=== PATIENT | male | born 1940 | race Caucasian/White ===

== ENCOUNTER → 2016-04-30 | Outpatient (CLI) | payer OTHER ==
[2016-04-30 17:44] LABS: ALT/SGPT 31 U/L (12-78); BLOOD UREA NITROGEN 18 mg/dl (7-18); BUN/CREATININE RATIO 13.8 (10-20); CARBON DIOXIDE 28 mmol/L (21-32); CHLORIDE 105 mmol/L (98-107); CHOLESTEROL 200 mg/dl (0-200); GLUCOSE 91 mg/dl (70-99); POTASSIUM 4.1 mmol/L (3.5-5.1); SODIUM 141 mmol/L (136-145)
[2016-04-30 17:45] LABS: BASO % 0.5 %; BASO ABS # 0.04 K/uL (0-0.2); COMPLETE YES; EOS % 1.7 %; HEMATOCRIT 43.7 % (42-52); IG% 0.1 %; LYMPH % 22.6 %; LYMPH ABS # 1.71 K/uL (1.2-3.4); MEAN CELL VOLUME 87.2 fL (80-100); MEAN CORPUSCULAR HEMOGLOBIN 29.9 pg (25-34); MEAN CORPUSCULAR HGB CONC 34.3 g/dl (32-36); MEAN PLATELET VOLUME 10.6 fL (7.4-10.4); MONO % 8.8 %; NEUT % 66.3 %; PLATELET COUNT 225 K/uL (130-400); RED BLOOD COUNT 5.01 M/uL (4.7-6.1); WHITE BLOOD COUNT 7.58 K/uL (4.8-10.8)
[2016-04-30 17:47] LABS: ALB/GLOB RATIO 1.1 (0.9-2); ALKALINE PHOSPHATASE 50 U/L (45-117); AST/SGOT 28 U/L (15-37); CHOLESTEROL/HDL RATIO 3.9; HDL CHOLESTEROL 51 mg/dl; LDL CHOLESTEROL CALCULATED 136 mg/dl; TRIGLYCERIDES 64 mg/dl (0-150); VERY LOW DENSITY LIPOPROT CALC 13 mg/dl
== END | disposition home or self-care (01) ==
LOC: C.LABPVFM 13:17
PROVIDERS: ATTEND Nurse Practitioner Family
DX: Z01.818 Encounter for other preprocedural examination (principal); Z01.810 Encounter for preprocedural cardiovascular examination; Z13.220 Encounter for screening for lipoid disorders; Z13.1 Encounter for screening for diabetes mellitus

== ENCOUNTER 2020-09-25 09:46 | Inpatient (IN) ==
[2020-09-25] MEDS ORDERED: SODIUM CHLORIDE 0.9% 500 ML IV SCH (10:15)
--- NOTE | 2020-09-25 10:17 | Emergency Department Note ---
Impression & Plan Weakness, TESSA (acute kidney injury), Acute UTI, Elevated troponin ED Provider Note NAME: CAROL DIAZ AGE: 80 SEX: M : 1940 ARRIVES VIA: Ambulance INFORMANT: [Patient][ems, ] ED PROVIDER(S): [Linus Clark MD] CHIEF COMPLAINT: Weakness HISTORY OF PRESENT ILLNESS: The patient is an 80-year-old male presents with increasing weakness that has developed over the last few weeks. As per his , he has worsened significantly in just the last 3 days. Today, he could not get out of bed without assistance. He seemed short of breath. The patient denies any fever. He has had some slight cough. He denies any abdominal pain or vomiting. No diarrhea or urinary complaints. He is vaccinated against COVID-19. The patient stopped his twice a day metoprolol on the sixth, 5 days ago because of some cyanosis in his hands. REVIEW OF SYSTEMS: See HPI for pertinent positives and negatives. A total of ten systems were reviewed and were otherwise negative. PMHx/PSHx: See Below SOCIAL HISTORY: See Below. PHYSICAL EXAM: GENERAL: Patient is in no acute distress. HEENT: No acute trauma, normocephalic atraumatic, mucous membranes moist, no n tomasz congestion, no scleral icterus. NECK: No stridor, no adenopathy, no meningismus, trachea is midline. LUNGS: Clear to auscultation bilaterally, no wheeze, no rhonchi, breath sounds equal. HEART: Tachycardic, regular rhythm, no murmurs. ABDOMEN: Soft, nontender, bowel sounds positive, no hernias, no peritonitis. EXTREMITIES: The patient's fingers are cool and somewhat cyanotic bilaterally. No pedal edema. No evidence for acute traumatic extremity injury. NEUROLOGIC: Oriented x 3, no acute motor or sensory deficits, no focal weakness. SKIN: No rash, no jaundice, no diaphoresis. DIFFERENTIAL DIAGNOSIS: Infection, dehydration, metabolic abnormality, hypo/hyperglycemia, dysrhythmia, COVID-19, electrolyte disturbance, anemia, hypoxia, cardiac sources, intracerebral event, toxicologic issues, stroke, TIA, as well as other pathologies. EMERGENCY DEPARTMENT COURSE/PROCEDURES: ECG: Indication was weakness. The ECG shows a normal sinus rhythm with a rate of 89. There are no PVCs, no ST elevation. There is some nonspecific ST change. QTC is 413. Compared to an ECG from 22 April 2020, the nonspecific ST change is worse, the rate has increased slightly. Continuous Cardiac Monitoring: An order was placed for continuous cardiac monitoring. The monitor shows a rate of 92 with normal sinus rhythm. MEDICAL DECISION MAKING: There is a mild leukocytosis, this would be consistent with infection. There is a mild anemia noted. There is a normal platelet count. Renal panel testing does show some dehydration with some acute kidney injury. Creatinine was 1.58. No liver enzyme elevation. The patient appeared to be in a euthyroid state. ECG shows a normal sinus rhythm, no acute ischemic change. Cardiac enzyme testing x1 does show a slight elevation. This elevation could be consistent with cardiac injury, mismatch or cardiac strain. Urinalysis is suggestive of infection with over 30 white blood cells. Covid testing returned negative. Chest film does not show pneumonia or CHF. On exam, the patient did not have any focal neurologic findings to suggest CVA. The patient received IV saline. He had received 1 L prior to arrival. He received 500 cc of saline during his ED stay. He was given IV cefepime as empiric antibiotic coverage. The patient presents with increasing weakness and fatigue. He appears to be dehydrated with some acute kidney injury. He has a UTI. There is a troponin elevation. Given his findings, I do think a hospital stay is warranted. I did speak with the patient and his about the results. I spoke with case management, the on-call hospitalist was consulted. Past Med/Surg History Medical History Aortic stenosis Resolved with TAVR. Aortic stenosis, severe BPH (benign prostatic hyperplasia) Cognitive decline Hypertension Obesity Osteoarthritis Surgical History History of cataract surgery Family History Father Myocardial infarction Cardiac disorder Brother Myocardial infarction Cardiac disorder Hypertension FHx: deafness or hearing loss Sister Hypertension Cardiac disorder Denies family history of Ovarian cancer Prostate cancer Breast cancer Bleeding disorder Colorectal cancer Social History Smoking Status: Never smoker Second Hand Exposure: No; Hx Alcohol Use: No Hx Substance Use: No Preferred Language: Welsh Communication Ability: Effective 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 Beliefs That Will Affect Care: None marital status: Current Living Situation: Spouse current occupational status: retired current occupation: Retired Feels Safe at Home: Yes caffeine: Yes Dental Care, Regularly: Yes Physical Activity Frequency: Does not Exercise Seatbelt Use: always Sunscreen Use: No Assistive Devices: Denture - Upper, Glasses and Hearing Aid - Bilateral Allergies Allergies Allergy/AdvReac Type Severity Reaction Status Date / Time metoprolol AdvReac Severe Fingers Unverified 09/25/20 11:05 turned Blue/ Poor Circulation Home Meds Home Medications Medication Instructions Recorded Confirmed cholecalciferol (vitamin D3) 50 50 mcg PO QAM #100 cap 09/28/18 09/25/20 mcg (2,000 unit) capsule carboxymethyl 0.5 %-glycerin 1 1 drp OPHTHALMIC (EYE) TID 04/01/20 09/25/20 %-polysorb 80 0.5 %-PF eye dropperette (Refresh Optive Evaristo-3 (PF)) lubricants topical gel 1 ea TOPICAL HS 04/01/20 09/25/20 aspirin 81 mg tablet,delayed 81 mg PO QAM 07/12/20 09/25/20 release atorvastatin 40 mg tablet (Lipitor) 40 mg PO HS 09/25/20 09/25/20 tamsulosin 0.4 mg capsule 0.4 mg PO HS 09/25/20 09/25/20 Previous Rx's Medication Instructions Recorded lisinopril 5 mg tablet 5 mg PO QAM #90 tab 09/19/20 Results & Data (ED) Vital Signs Vital Signs - 24 hr 09/25/20 10:02 09/25/20 10:44 09/25/20 11:30 Temperature 36.8 C Temperature Source Oral Pulse Rate 108 H 92 H Pulse Rate from SpO2 Sensor Respiratory Rate 18 23 Blood Pressure 126/79 123/87 Blood Pressure Mean 94 99 Pulse Oximetry 95 95 Oxygen Delivery Method Room Air Room Air Sepsis Recent Fever Within 48 Hours No Sepsis New/Unexplained Change in Mental Status N/A Sepsis Action Taken by Nursing No Action Required 09/25/20 12:01 09/25/20 12:31 Temperature Temperature Source Pulse Rate 93 H 108 H Pulse Rate from SpO2 Sensor 115 H Respiratory Rate 21 20 Blood Pressure 132/71 124/80 Blood Pressure Mean 91 94 Pulse Oximetry 59 L Oxygen Delivery Method Sepsis Recent Fever Within 48 Hours Sepsis New/Unexplained Change in Mental Status Sepsis Action Taken by Detention Medications Current Medication List: was personally reviewed by me Laboratory Data Attestation: I reviewed the patient's lab results. Result diagrams: 09/25/20 11:31 09/25/20 11:31 Lab Results 09/25/20 09/25/20 09/25/20 Range/Units 11:11 11:11 11:31 WBC 13.60 H (4.8-10.8) K/uL RBC 4.66 L (4.7-6.1) M/uL Hgb 13.7 L (14.0-18.0) g/dL Hct 40.4 L (42-52) % MCV 86.7 (80-100) fL MCH 29.4 (25-34) pg MCHC 33.9 (32-36) g/dL RDW Std Deviation 43.4 (36.4-46.3) fL RDW Coeff of Driss 13.9 (11.5-14.5) % Plt Count 259 (130-400) K/uL MPV 11.2 H (7.4-10.4) fL Immature Gran % (Auto) 0.3 % Neut % (Auto) 87.1 % Lymph % (Auto) 6.1 % [place] % (Auto) 6.3 % Eos % (Auto) 0.1 % Baso % (Auto) 0.1 % Neut # (Auto) 11.85 H (1.4-6.5) K/uL Lymph # (Auto) 0.83 L (1.2-3.4) K/uL [place] # (Auto) 0.85 H (0.11-0.59) K/uL Eos # (Auto) 0.02 (0-0.5) K/uL Baso # (Auto) 0.01 (0-0.2) K/uL Immature Gran # (Auto) 0.04 H (0.00-0.02) K/uL Sodium (136-145) mmol/L Potassium (3.5-5.1) mmol/L Chloride (98-107) mmol/L Carbon Dioxide (21-32) mmol/L Anion Gap (3-11) BUN (7-18) mg/dl Creatinine (0.6-1.4) mg/dl Est Cr Clr Drug Dosing ml/min Est GFR ( Amer) ml/min Est GFR (Non-Af Amer) ml/min BUN/Creatinine Ratio (10-20) Glucose (70-99) mg/dl Lactate (0.4-2.0) mmol/L Calcium (8.5-10.1) mg/dl Magnesium (1.8-2.4) mg/dl Total Bilirubin (0.2-1) mg/dl AST (15-37) U/L ALT (12-78) U/L Alkaline Phosphatase (45-117) U/L Troponin I (0-0.045) ng/ml Total Protein (6.4-8.2) gm/dl Albumin (3.4-5.0) gm/dl Globulin (2.5-4.0) gm/dl Albumin/Globulin Ratio (0.9-2) TSH (0.300-4.500) uIu/ml Urine Color Urine Appearance (Clear) Urine pH (4.5-7.5) Ur Specific [place] (1.000-1.030) Urine Protein (Negative) Urine Glucose (UA) (Negative) Urine Ketones (Negative) Urine Blood (Negative) Urine Nitrite (Negative) Urine Bilirubin (Negative) Urine Urobilinogen (Negative) Ur Leukocyte Esterase (Negative) Urine WBC (Auto) (0-5) /hpf Urine RBC (Auto) (0-4) /hpf U Hyaline Cast (Auto) (0-5) /lpf U Epithel Cells (Auto) (0-5) /lpf Urine Bacteria (Auto) (Negative) COVID-19 Eval Order Covid19 at [facility] SARS-CoV-2 (PCR) NEGATIVE (Negative) 09/25/20 09/25/20 09/25/20 Range/Units 11:31 11:52 12:38 WBC (4.8-10.8) K/uL RBC (4.7-6.1) M/uL Hgb (14.0-18.0) g/dL Hct (42-52) % MCV (80-100) fL MCH (25-34) pg MCHC (32-36) g/dL RDW Std Deviation (36.4-46.3) fL RDW Coeff of Driss (11.5-14.5) % Plt Count (130-400) K/uL MPV (7.4-10.4) fL Immature Gran % (Auto) % Neut % (Auto) % Lymph % (Auto) % [place] % (Auto) % Eos % (Auto) % Baso % (Auto) % Neut # (Auto) (1.4-6.5) K/uL Lymph # (Auto) (1.2-3.4) K/uL [place] # (Auto) (0.11-0.59) K/uL Eos # (Auto) (0-0.5) K/uL Baso # (Auto) (0-0.2) K/uL Immature Gran # (Auto) (0.00-0.02) K/uL Sodium 136 (136-145) mmol/L Potassium 3.9 (3.5-5.1) mmol/L Chloride 108 H (98-107) mmol/L Carbon Dioxide 25 (21-32) mmol/L Anion Gap 3.0 (3-11) BUN 62 H (7-18) mg/dl Creatinine 1.58 H (0.6-1.4) mg/dl Est Cr Clr Drug Dosing 36.7 ml/min Est GFR ( Amer) 46.5 ml/min Est GFR (Non-Af Amer) 40.1 ml/min BUN/Creatinine Ratio 39.3 H (10-20) Glucose 86 (70-99) mg/dl Lactate 1.4 (0.4-2.0) mmol/L Calcium 9.3 (8.5-10.1) mg/dl Magnesium 2.4 (1.8-2.4) mg/dl Total Bilirubin 1.1 H (0.2-1) mg/dl AST 27 (15-37) U/L ALT 38 (12-78) U/L Alkaline Phosphatase 65 (45-117) U/L Troponin I 0.075 H* (0-0.045) ng/ml Total Protein 6.7 (6.4-8.2) gm/dl Albumin 3.4 (3.4-5.0) gm/dl Globulin 3.3 (2.5-4.0) gm/dl Albumin/Globulin Ratio 1.0 (0.9-2) TSH 0.428 (0.300-4.500) uIu/ml Urine Color Yellow Urine Appearance Clear (Clear) Urine pH 5.5 (4.5-7.5) Ur Specific [place] 1.022 (1.000-1.030) Urine Protein Trace H (Negative) Urine Glucose (UA) Negative (Negative) Urine Ketones 2+ H (Negative) Urine Blood Negative (Negative) Urine Nitrite Negative (Negative) Urine Bilirubin Negative (Negative) Urine Urobilinogen Negative (Negative) Ur Leukocyte Esterase 2+ H (Negative) Urine WBC (Auto) >30 H (0-5) /hpf Urine RBC (Auto) 0-4 (0-4) /hpf U Hyaline Cast (Auto) 1-5 (0-5) /lpf U Epithel Cells (Auto) 20-30 H (0-5) /lpf Urine Bacteria (Auto) Negative (Negative) COVID-19 Eval Order SARS-CoV-2 (PCR) (Negative) Administered Medications Discontinued Medications Sodium Chloride (Nss) 500 mls @ 999 mls/hr IV .Q31M NIDA Stop: 09/25/20 10:45 Last Infusion: 09/25/20 12:34 Dose: 0 mls/hr Documented by: [id number] Admin: 09/25/20 11:38 Dose: 999 mls/hr Documented by: [id number] Cefepime HCl (Maxipime) 2,000 mg in 20 mls @ 5 mls/min IV NOW STA; Protocol Stop: 09/25/20 12:43 Last Admin: 09/25/20 13:46 Dose: 5 mls/min Documented by: [id number] Imaging Data Radiologist's Impression: Chest X-Ray 09/25/20 10:13 XR chest 1V portable HISTORY: 80 years-old Male weakness COMPARISON: 04/22/2020 TECHNIQUE: Portable AP view of the chest FINDINGS: Cardiomediastinal and hilar silhouettes are within normal limits. Aortic valvular endograft. No pneumothorax, pleural effusion, airspace consolidation or overt pulmonary edema. Degenerative changes of the shoulders and spine. No acute fracture. IMPRESSION: No acute process. ACT 112: Negative or not required by law. The above report was generated using voice recognition software. It may contain grammatical, syntax or spelling errors. Electronically signed by: Justo Armijo M.D. 09/25/2020 10:37 AM Discharge Plan Visit Data Chief Complaint: Illness Stated Complaint: WEAKNESS, SOB ED Provider: Linus Clark Discharge Problem: Weakness, TESSA (acute kidney injury), Acute UTI, Elevated troponin Patient Disposition: Admitted As Inpatient Condition: Fair Forms Stand Alone Forms: [facility] Prescriptions Prescriptions: No Action lisinopril 5 mg tablet 5 mg PO QAM Qty: 90 RF: 3 aspirin 81 mg tablet,delayed release (DR/EC) 81 mg PO QAM RF: 0 cholecalciferol (vitamin D3) 2,000 unit capsule 50 mcg PO QAM Qty: 100 RF: 0 lubricants [Lubri-Gel] Gel 1 ea TOPICAL HS RF: 0 Refresh Optive Evaristo-3 (PF) 0.5-1-0.5 % Dropperette 1 drp OPHTHALMIC (EYE) TID RF: 0 atorvastatin [Lipitor] 40 mg tablet 40 mg PO HS RF: 0 tamsulosin 0.4 mg capsule 0.4 mg PO HS RF: 0 Referrals Referrals: Marcie Wallace CRNP [Primary Care Provider] -
--- NOTE | 2020-09-25 10:38 | XRay Report ---
XR chest 1V portable HISTORY: 80 years-old Male weakness COMPARISON: 04/22/2020 TECHNIQUE: Portable AP view of the chest FINDINGS: Cardiomediastinal and hilar silhouettes are within normal limits. Aortic valvular endograft. No pneum othorax, pleural effusion, airspace consolidation or overt pulmonary edema. Degenerative changes of t he shoulders and spine. No acute fracture. IMPRESSION: No acute process. ACT 112: Negative or not required by law. The above report was generated using voice recognition software. It may contain grammatical, syntax o r spelling errors. Electronically signed by: Justo Armijo M.D. 09/25/2020 10:37 AM
[2020-09-25 11:45] LABS: Basophils # (auto) 0.01 K/uL (0-0.2); Basophils % (auto) 0.1 %; Eosinophils # (auto) 0.02 K/uL (0-0.5); Eosinophils % (auto) 0.1 %; Hematocrit (blood only) 40.4 % (42-52); Hemoglobin 13.7 g/dL (14.0-18.0); Immature Granulocytes # (auto) 0.04 K/uL (0.00-0.02); Immature Granulocytes % (auto) 0.3 %; Lymphocytes # (auto) 0.83 K/uL (1.2-3.4); Lymphocytes % (auto) 6.1 %; Mean Corpuscular Hemoglobin 29.4 pg (25-34); Mean Corpuscular Hgb Conc 33.9 g/dL (32-36); Mean Corpuscular Volume 86.7 fL (80-100); Mean Platelet Volume 11.2 fL (7.4-10.4); Monocytes # (auto) 0.85 K/uL (0.11-0.59); Monocytes % (auto) 6.3 %; Neutrophils # (auto) 11.85 K/uL (1.4-6.5); Neutrophils % (auto) 87.1 %; Platelet Count 259 K/uL (130-400); RDW Coefficient of Variation 13.9 % (11.5-14.5); RDW Standard Deviation 43.4 fL (36.4-46.3); Red Blood Count 4.66 M/uL (4.7-6.1)
[2020-09-25 12:03] LABS: Albumin Level 3.4 gm/dl (3.4-5.0); BUN Creatinine Ratio 39.3 (10-20); Calcium 9.3 mg/dl (8.5-10.1); Creatinine Clr Calc Pharmacy 36.7 ml/min; Est GFR (African American) 46.5 ml/min; Est GFR (Non-African American) 40.1 ml/min; Magnesium 2.4 mg/dl (1.8-2.4); Potassium 3.9 mmol/L (3.5-5.1)
[2020-09-25 12:18] LABS: Bilirubin,Total 1.1 mg/dl (0.2-1); Globulin 3.3 gm/dl (2.5-4.0); Thyroid Stimulating Hormone 0.428 uIu/ml (0.300-4.500); Total Protein 6.7 gm/dl (6.4-8.2); Troponin I 0.075 ng/ml (0-0.045)
[2020-09-25] MEDS ORDERED: CEFEPIME 2,000 MG/20 ML VIAL IV STA (12:40)
[2020-09-25 12:45] LABS: Appearance Urine Clear (Clear); Bacteria Urine Automated Negative (Negative); Bilirubin Urine Negative (Negative); Blood Urine Negative (Negative); Color Urine Yellow; Epithelial Cell Urine Auto 20-30 /lpf (0-5); Glucose Urine UA Negative (Negative); Ketones Urine 2+ (Negative); Leukocyte Esterase Urine 2+ (Negative); Nitrite Urine Negative (Negative); Protein Urine Trace (Negative); RBC Urine Automated 0-4 /hpf (0-4); Specific Gravity Urine 1.022 (1.000-1.030); Urobilinogen Urine Negative (Negative); WBC Urine Automated >30 /hpf (0-5); pH Urine 5.5 (4.5-7.5)
--- NOTE | 2020-09-25 14:06 | Electrocardiogram Report ---
Test Reason : Blood Pressure : / mmHG Vent. Rate : 089 BPM Atrial Rate : 089 BPM P-R Int : 140 ms QRS Dur : 086 ms QT Int : 340 ms P-R-T Axes : 081 046 053 degrees QTc Int : 413 ms Poor data quality, interpretation may be adversely affected Normal sinus rhythm Nonspecific T wave abnormality Abnormal ECG When compared with ECG of 22-APR-2020 08:40, Nonspecific T wave abnormality now evident in Anterior leads Confirmed by Prosper Downey ([id number]) on 09/25/2020 2:06:39 PM Referred By: Davis Chu Confirmed By:Eris Downey
--- NOTE | 2020-09-25 14:14 | History & Physical Report ---
Date of Service September 25, 2020 Assessment & Plan (1) Elevated troponin I level: Plan: Elevated troponin I level/abnormal EKG/hypertension/status post TAVR- The patient will be admitted to telemetry for serial cardiac enzymes, serial EKG's, cardiac rhythm monitoring and a 2-D echocardiogram with Dopplers. Troponin upon admission 0.075 Continue aspirin 81 mg daily, lisinopril 5 mg daily. Consult cardiology Dr. Downey Follow serial laboratories and EKGs (2) Abnormal EKG: Plan: See above (3) TESSA (acute kidney injury): Plan: Creatinine 1.58 upon admission, with baseline 1.09 Placed on NSS. Repeat laboratories in a.m. (4) Swallowing dysfunction: Plan: Swallowing dysfunction- Consult speech therapy His family reports that his oral intake has been significantly reduced, gradually worsening to the point that his oral intake is minimal for both liquids and solids (5) S/P TAVR (transcatheter aortic valve replacement): Plan: See above (6) Hypertension: Plan: See above (7) Cognitive decline: Plan: Cognitive decline likely contributing to generalized weakness- Patient should have PT OT assessment prior to discharge to assess whether he would need inpatient rehab upon discharge (8) Weakness: Plan: See above History of Present Illness Chief Complaint: The patient presents to the emergency department with decreased oral intake, and worsening generalized weakness to the point of not being able to get out of bed without assistance this morning. 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 He was brought into the emergency department with family noticed progressive symptoms as noted above. Patient reports he just has no appetite, and denies any abdominal discomfort, nausea or vomiting. Allergies Allergy/AdvReac Type Severity Reaction Status Date / Time metoprolol AdvReac Severe Fingers Unverified 09/25/20 11:05 turned Blue/ Poor Circulation Home Medications Medication Instructions Recorded Confirmed Type cholecalciferol (vitamin D3) 50 50 mcg PO QAM #100 cap 09/28/18 09/25/20 History mcg (2,000 unit) capsule carboxymethyl 0.5 %-glycerin 1 1 drp OPHTHALMIC (EYE) TID 04/01/20 09/25/20 History %-polysorb 80 0.5 %-PF eye dropperette (Refresh Optive Evaristo-3 (PF)) lubricants topical gel 1 ea TOPICAL HS 04/01/20 09/25/20 History aspirin 81 mg tablet,delayed 81 mg PO QAM 07/12/20 09/25/20 History release lisinopril 5 mg tablet 5 mg PO QAM #90 tab 09/19/20 09/25/20 Rx atorvastatin 40 mg tablet (Lipitor) 40 mg PO HS 09/25/20 09/25/20 History tamsulosin 0.4 mg capsule 0.4 mg PO HS 09/25/20 09/25/20 History Past Med/Surg History Medical History Aortic stenosis Resolved with TAVR. Aortic stenosis, severe BPH (benign prostatic hyperplasia) Cognitive decline Hypertension Obesity Osteoarthritis Surgical History History of cataract surgery Family History Father Myocardial infarction Cardiac disorder Brother Myocardial infarction Cardiac disorder Hypertension FHx: deafness or hearing loss Sister Hypertension Cardiac disorder Denies family history of Ovarian cancer Prostate cancer Breast cancer Bleeding disorder Colorectal cancer Social History Smoking Status: Never smoker Second Hand Exposure: No; Hx Alcohol Use: No Hx Substance Use: No Preferred Language: Spanish Communication Ability: Effective Spin Instructor Required: No Beliefs That Will Affect Care: None marital status: Current Living Situation: Spouse current occupational status: retired current occupation: Retired Feels Safe at Home: Yes caffeine: Yes Dental Care, Regularly: Yes Physical Activity Frequency: Does not Exercise Seatbelt Use: always Sunscreen Use: No Assistive Devices: Denture - Upper, Glasses and Hearing Aid - Bilateral Review of Systems Review of Systems: The patient denies chest pain, palpitations, shortness of breath, dyspnea on exertion, cough, lower extremity swelling, sore throat, fevers, chills, sweats, nausea, vomiting, diarrhea , constipation, abdominal pain, pelvic pain, blood in urine or stool, dysuria, urinary frequency or urgency, lightheadedness, dizziness, headache, loss of consciousness, rash, abnormal bruising or bleeding, focal weakness, numbness or tingling in arms or legs, generalized arthralgias or myalgias, back or neck pain, or night sweats. The review of systems is otherwise negative other than for that already noted above, and at least 10 systems have been reviewed. Physical Exam Physical Exam: The patient is awake, alert and oriented 3, well developed and well nourished, normocephalic and atraumatic, lying in bed and in no acute distress. HEENT--PERRL, EOMI, mucous membranes and oropharynx dry. Neck--supple. No JVD. No bruits. Thyroid normal, trachea midline, no adenopathy. Heart--normal S1 and S2. No murmurs, rubs or gallops. Lungs--clear bilaterally, no respiratory distress, no accessory muscle use. Abdomen--normal bowel sounds and soft. Nontender. Nondistended, no hernias or masses, no organomegaly. Extremities--no cyanosis or clubbing. No edema. Dermatologic--skin is mildly dry Neurologic--cranial nerves II through XII grossly intact. Rheumatologic--normal range of motion. Psychiatric--normal affect. Results & Data Results & Data ([facility]) Vital Signs (Past 12 Hours) Vital Signs Temp Pulse Resp BP Pulse Ox 09/25/20 12:31 108 H 20 124/80 09/25/20 12:01 93 H 21 132/71 59 L 09/25/20 11:30 92 H 23 123/87 09/25/20 10:44 95 09/25/20 10:02 98.2 F 108 H 18 126/79 95 Laboratory Results Laboratory Results WBC 13.60 K/uL (4.8-10.8) H 09/25/20 11:31 RBC 4.66 M/uL (4.7-6.1) L 09/25/20 11:31 Hgb 13.7 g/dL (14.0-18.0) L 09/25/20 11:31 Hct 40.4 % (42-52) L 09/25/20 11:31 MCV 86.7 fL (80-100) 09/25/20 11:31 MCH 29.4 pg (25-34) 09/25/20 11:31 MCHC 33.9 g/dL (32-36) 09/25/20 11:31 RDW Std Deviation 43.4 fL (36.4-46.3) 09/25/20 11:31 RDW Coeff of Driss 13.9 % (11.5-14.5) 09/25/20 11:31 Plt Count 259 K/uL (130-400) 09/25/20 11:31 MPV 11.2 fL (7.4-10.4) H 09/25/20 11:31 Immature Gran % (Auto) 0.3 % 09/25/20 11:31 Neut % (Auto) 87.1 % 09/25/20 11:31 Lymph % (Auto) 6.1 % 09/25/20 11:31 [place] % (Auto) 6.3 % 09/25/20 11:31 Eos % (Auto) 0.1 % 09/25/20 11:31 Baso % (Auto) 0.1 % 09/25/20 11:31 Neut # (Auto) 11.85 K/uL (1.4-6.5) H 09/25/20 11:31 Lymph # (Auto) 0.83 K/uL (1.2-3.4) L 09/25/20 11:31 [place] # (Auto) 0.85 K/uL (0.11-0.59) H 09/25/20 11:31 Eos # (Auto) 0.02 K/uL (0-0.5) 09/25/20 11:31 Baso # (Auto) 0.01 K/uL (0-0.2) 09/25/20 11:31 Immature Gran # (Auto) 0.04 K/uL (0.00-0.02) H 09/25/20 11:31 Sodium 136 mmol/L (136-145) 09/25/20 11:31 Potassium 3.9 mmol/L (3.5-5.1) 09/25/20 11:31 Chloride 108 mmol/L (98-107) H 09/25/20 11:31 Carbon Dioxide 25 mmol/L (21-32) 09/25/20 11:31 Anion Gap 3.0 (3-11) 09/25/20 11:31 BUN 62 mg/dl (7-18) H 09/25/20 11:31 Creatinine 1.58 mg/dl (0.6-1.4) H 09/25/20 11:31 Est Cr Clr Drug Dosing 36.7 ml/min 09/25/20 11:31 Est GFR ( Amer) 46.5 ml/min 09/25/20 11:31 Est GFR (Non-Af Amer) 40.1 ml/min 09/25/20 11:31 BUN/Creatinine Ratio 39.3 (10-20) H 09/25/20 11:31 Glucose 86 mg/dl (70-99) 09/25/20 11:31 Lactate 1.4 mmol/L (0.4-2.0) 09/25/20 11:52 Calcium 9.3 mg/dl (8.5-10.1) 09/25/20 11:31 Magnesium 2.4 mg/dl (1.8-2.4) 09/25/20 11:31 Total Bilirubin 1.1 mg/dl (0.2-1) H 09/25/20 11:31 AST 27 U/L (15-37) 09/25/20 11:31 ALT 38 U/L (12-78) 09/25/20 11:31 Alkaline Phosphatase 65 U/L (45-117) 09/25/20 11:31 Troponin I 0.075 ng/ml (0-0.045) H* 09/25/20 11:31 Total Protein 6.7 gm/dl (6.4-8.2) 09/25/20 11:31 Albumin 3.4 gm/dl (3.4-5.0) 09/25/20 11:31 Globulin 3.3 gm/dl (2.5-4.0) 09/25/20 11:31 Albumin/Globulin Ratio 1.0 (0.9-2) 09/25/20 11:31 TSH 0.428 uIu/ml (0.300-4.500) 09/25/20 11:31 Urine Color Yellow 09/25/20 12:38 Urine Appearance Clear (Clear) 09/25/20 12:38 Urine pH 5.5 (4.5-7.5) 09/25/20 12:38 Ur Specific [place] 1.022 (1.000-1.030) 09/25/20 12:38 Urine Protein Trace (Negative) H 09/25/20 12:38 Urine Glucose (UA) Negative (Negative) 09/25/20 12:38 Urine Ketones 2+ (Negative) H 09/25/20 12:38 Urine Blood Negative (Negative) 09/25/20 12:38 Urine Nitrite Negative (Negative) 09/25/20 12:38 Urine Bilirubin Negative (Negative) 09/25/20 12:38 Urine Urobilinogen Negative (Negative) 09/25/20 12:38 Ur Leukocyte Esterase 2+ (Negative) H 09/25/20 12:38 Urine WBC (Auto) >30 /hpf (0-5) H 09/25/20 12:38 Urine RBC (Auto) 0-4 /hpf (0-4) 09/25/20 12:38 U Hyaline Cast (Auto) 1-5 /lpf (0-5) 09/25/20 12:38 U Epithel Cells (Auto) 20-30 /lpf (0-5) H 09/25/20 12:38 Urine Bacteria (Auto) Negative (Negative) 09/25/20 12:38 COVID-19 Eval Order Covid19 at [facility] 09/25/20 11:11 SARS-CoV-2 (PCR) NEGATIVE (Negative) 09/25/20 11:11 Impressions Chest X-Ray 09/25/20 10:13 XR chest 1V portable HISTORY: 80 years-old Male weakness COMPARISON: 04/22/2020 TECHNIQUE: Portable AP view of the chest FINDINGS: Cardiomediastinal and hilar silhouettes are within normal limits. Aortic valvular endograft. No pneumothorax, pleural effusion, airspace consolidation or overt pulmonary edema. Degenerative changes of the shoulders and spine. No acute fracture. IMPRESSION: No acute process. ACT 112: Negative or not required by law. The above report was generated using voice recognition software. It may contain grammatical, syntax or spelling errors. Electronically signed by: Justo Armijo M.D. 09/25/2020 10:37 AM ECG Additional Comments: [facility], [place] Electrocardiogram ReportSigned Patient: CAROL DIAZ CAdmit Date: 09/25/20MR#: [id number] Phy: Acct ID: [id number] Phy: Marcie Wallace, CRNPBirth Date: 1940Fam Phy:Age: 80Location: EDSex: MRoom/Bed: cc: ~ DICTATED BY: Prosper Downey MD Test Reason : Blood Pressure : / mmHG Vent. Rate : 089 BPM Atrial Rate : 089 BPM P-R Int : 140 ms QRS Dur : 086 ms QT Int : 340 ms P-R-T Axes : 081 046 053 degrees QTc Int : 413 ms Poor data quality, interpretation may be adversely affected Normal sinus rhythm Nonspecific T wave abnormality Abnormal ECG When compared with ECG of 22-APR-2020 08:40, Nonspecific T wave abnormality now evident in Anterior leads Confirmed by Prosper Downey ([id number]) on 09/25/2020 2:06:39 PM Referred By: Davis Chu Confirmed By:Eris Downey Signed By:09/25/20 1406 Dictated: 09/25/20 1117 Transcribed: Mosaic Layer: The status of this report is Signed.Draft = Not yet reviewed or approved by Medical Physician.Signed = Reviewed and approved by Medical Physician. Code Status & VTE Plan Code Status Full code VTE Prophylaxis Plan VTE Prophylaxis will be ordered: Yes PG Care Time/CCT Total # of Minutes Spent Total Time Spent with Patient: Total time spent is greater than 50% in coordination of care (as documented) at patient's floor/unit and/or counseling patient: Coding Level of Care Code 75920 Initial Inpt Care Lvl 3 Diagnoses Elevated troponin I level R77.8 Abnormal EKG R94.31 TESSA (acute kidney injury) N17.9 Swallowing dysfunction R13.10 S/P TAVR (transcatheter aortic valve replacement) Z95.2 Hypertension I10 Cognitive decline R41.89 Weakness R53.1
[2020-09-25] MEDS ORDERED: NITROGLYCERIN SL 0.4 MG/TAB TAB SL PRN (16:31)
[2020-09-25] MEDS ORDERED: ONDANSETRON INJ 2 MG/ML 2 ML VIAL IV PRN (16:31)
[2020-09-25] MEDS ORDERED: ACETAMINOPHEN 325 MG TAB PO PRN (16:31)
[2020-09-25] MEDS: SODIUM CHLORIDE 0.9% 1000ML 1,000 ML IV SCH (17:43)
--- NOTE | 2020-09-25 17:59 | XCELERA ---
[id number]
[2020-09-25] MEDS ORDERED: [UNRECOGNIZED DRUG - SUPPLY] TOP SCH (21:00)
[2020-09-25] MEDS: ARTIFICIAL TEARS OP SCH (21:35)
[2020-09-25] MEDS: HEPARIN SOD 5,000 UNIT/0.5 ML VIAL SQ SCH (21:36)
[2020-09-26] MEDS: SODIUM CHLORIDE 0.9% 1000ML 1,000 ML IV SCH (05:10)
[2020-09-26 05:35] LABS: Basophils # (auto) 0.02 K/uL (0-0.2); Basophils % (auto) 0.1 %; Eosinophils # (auto) 0.05 K/uL (0-0.5); Eosinophils % (auto) 0.4 %; Hematocrit (blood only) 40.5 % (42-52); Hemoglobin 13.3 g/dL (14.0-18.0); Immature Granulocytes # (auto) 0.03 K/uL (0.00-0.02); Immature Granulocytes % (auto) 0.2 %; Lymphocytes # (auto) 1.32 K/uL (1.2-3.4); Lymphocytes % (auto) 9.6 %; Mean Corpuscular Hemoglobin 29.1 pg (25-34); Mean Corpuscular Hgb Conc 32.8 g/dL (32-36); Mean Corpuscular Volume 88.6 fL (80-100); Mean Platelet Volume 10.9 fL (7.4-10.4); Monocytes # (auto) 0.98 K/uL (0.11-0.59); Monocytes % (auto) 7.1 %; Neutrophils # (auto) 11.38 K/uL (1.4-6.5); Neutrophils % (auto) 82.6 %; Platelet Count 216 K/uL (130-400); RDW Standard Deviation 45.5 fL (36.4-46.3); Red Blood Count 4.57 M/uL (4.7-6.1); White Blood Count 13.78 K/uL (4.8-10.8)
[2020-09-26 06:01] LABS: Albumin Level 3.1 gm/dl (3.4-5.0); BUN Creatinine Ratio 41.5 (10-20); Calcium 8.7 mg/dl (8.5-10.1); Creatinine Clr Calc Pharmacy 42.6 ml/min; Est GFR (African American) 61.8 ml/min; Est GFR (Non-African American) 53.3 ml/min; Magnesium 2.2 mg/dl (1.8-2.4)
[2020-09-26 06:03] LABS: Total Protein 6.1 gm/dl (6.4-8.2)
[2020-09-26] MEDS: HEPARIN SOD 5,000 UNIT/0.5 ML VIAL SQ SCH ×2 (07:56→20:31)
[2020-09-26] MEDS: ARTIFICIAL TEARS OP SCH ×3 (07:56→20:32)
[2020-09-26] MEDS ORDERED: MULTI-VITAMIN INFUSION 10 ML, THIAMINE HCL 100 MG, FOLIC ACID 1 MG in SODIUM CHLORIDE 0... IV ONE (13:00)
--- NOTE | 2020-09-26 13:00 | Hospitalist Progress Note ---
Date of Service September 26, 2020 Assessment & Plan (1) Dysphagia: Plan: x 2 months. Started in the days following his hospitalization for TAVR at [facility] in June. Perioperative stroke? However, no old stroke seen on MRI brain today that was obtained that would account for swallowing dysfunction (old R cerebellar lacune only). Obstruction from esophageal mass or stricture or other? Laryngeal tumor/obstruction? Substernal goiter? Other? Appreciate speech therapy consult. NPO. Speech concerned he would not even be able to safely do a video swallow. Will consult GI for consideration of upper endoscopy. Consider CT soft tissues neck if EGD, if done, is negative. Consider ENT eval. Keep NPO because of failed swallow eval. (2) Severe protein-calorie malnutrition: Plan: Severe weight loss (14kg) since his TAVR. 2nd #1. Needs w/u for #1 first. Add dextrose to IV fluids. Give banana bag x 1. Then give supplemental thiamine/folate. (3) Leukocytosis: Plan: etiology? crp scantly elevated. procal negative. no infectious symptoms. COVID negative. cxr without pneumonia. urine cx and blood cx's thus far negative. reactive ?? repeat cbc am. (4) Elevated troponin I level: Plan: Myocardial demand ischemia in setting of dehydration, TESSA, etc. No true ACS. pre-op heart cath prior to TAVR showed nonobstructive CAD only (40% LAD lesion only, other epicardial vessels largely wnl). (5) TESSA (acute kidney injury): Plan: 2nd volume depletion due to inability to take proper nutrition & hydration. Peak Cr 1.5. Now 1.2. Continue IVF. Repeat bmp am. Hold [place]. (6) S/P TAVR (transcatheter aortic valve replacement): Plan: June 2020 at [facility]. (7) Hypertension: Plan: While NPO simply follow BPs. Most thus far are normal - likely due to severe weight loss since June. Follow off of his [place]. (8) Elevated cholesterol: Plan: Hold statin. (9) BPH (benign prostatic hyperplasia): Plan: Hold flomax. (10) Old lacunar stroke without late effect: Plan: on MRI brain today - old, small, right-sided cerebellar lacunar stroke. age-indeterminate but not related to presenting issues. when allowed to take PO should resume asa with statin. (11) Elevated AST (SGOT): Plan: cause? trend. was normal at admission, now scantly elevated. Plan: lengthy discussion held with pt's by phone this evening. discussed speech therapy consult and failed bedside swallow. discussed MRI brain results. discussed getting GI consultation. questions answered. Admission and Anticipated Discharge Date Admission Date: September 25, 2020 Subjective patient states that up until his TAVR procedure he was having normal swallow function. first he told me the dysphagia was 2 weeks in length, but then changed the story and said it was from the time of his TAVR. records reviewed from Dr Chu's last office visit. apparently perioperatively around the TAVR at [facility] he had a neuro event leading to stroke work up including CTA head/neck, etc. work-up was negative. patient states that when he was released he and his stopped at [place] on the way home to [facility]. he said "that was the last time I was able to swallow". he describes a sensation of "the food just getting stuck" -- and he points to this throat area. I commented during the visit that his voice sounded hoarse to me and he couldn't say either way if he indeed had hoarseness. reports significant weight loss since his TAVR. records substantiate this - has lost 14 kg since late June. bedside swallow eval performed by speech this am - patient has severe dysphagia; he can masticate but the swallow mechanism cannot be initiated; nothing actually exits the mouth into the throat. patient reports dysphagia for solids and liquids but can tolerate tiny amounts of latter. Review of Systems Review of Systems: gen - severe weight loss, fatigue CV - no chest pain pulm - no dyspnea ENMT - dry mouth GI - no vomiting, no nausea, no abd pain neuro - no motor weakness of arms/legs; no aphasia or dysarthria Physical Exam Physical Exam: gen: patient was being helped from the commode to the chair - weak, unsteady gait eyes: PERRL mouth: MMM, no throat lesions neck: no masses, no lymphadenopathy; no large goiter heart: RRR, s1 s2, no murmur lungs: CTA b/l abd: soft, NT, ND, BS+, no HSM ext: no edema, pulses 2+ b/l neuro: strength 5/5 x 4 exts; speech is clear/fluent but hoarse; no facial droop Results & Data Results & Data ([facility]) Vital Signs (Past 12 Hours) Vital Signs Temp Pulse Pulse Resp BP BP Pulse Ox 09/26/20 11:48 88 09/26/20 11:10 36.5 C 97 H 18 109/65 96 09/26/20 07:38 36.5 C 104 H 22 118/81 99 09/26/20 06:57 36.5 C 09/26/20 06:23 97 H 23 114/76 98 09/26/20 05:23 102 H 19 112/78 98 09/26/20 04:23 101 H 20 97/68 L 99 09/26/20 03:23 102 H 16 126/67 97 09/26/20 02:23 85 103/60 98 09/26/20 01:23 106 H 126/72 99 Laboratory Results Laboratory Results - last 24 hr 09/26/20 09/26/20 09/26/20 04:48 10:09 10:09 WBC RBC Hgb Hct MCV MCH MCHC RDW Std Deviation RDW Coeff of Driss Plt Count MPV Immature Gran % (Auto) Neut % (Auto) Lymph % (Auto) [place] % (Auto) Eos % (Auto) Baso % (Auto) Neut # (Auto) Lymph # (Auto) [place] # (Auto) Eos # (Auto) Baso # (Auto) Immature Gran # (Auto) Sodium 142 Potassium 4.0 Chloride 111 H Carbon Dioxide 25 Anion Gap 6.0 BUN 52 H Creatinine 1.25 D Est Cr Clr Drug Dosing 42.6 Est GFR ( Amer) 61.8 Est GFR (Non-Af Amer) 53.3 BUN/Creatinine Ratio 41.5 H Glucose 74 Calcium 8.7 Magnesium 2.2 Total Bilirubin 1.0 AST 42 H ALT 40 Alkaline Phosphatase 59 C-Reactive Protein 0.69 H Total Protein 6.1 L Albumin 3.1 L Globulin 3.0 Albumin/Globulin Ratio 1.0 Procalcitonin < 0.05 09/27/20 09/27/20 04:58 04:58 WBC 10.47 RBC 4.55 L Hgb 13.4 L Hct 40.3 L MCV 88.6 MCH 29.5 MCHC 33.3 RDW Std Deviation 45.7 RDW Coeff of Driss 14.0 Plt Count 201 MPV 10.5 H Immature Gran % (Auto) 0.2 Neut % (Auto) 80.5 Lymph % (Auto) 11.5 [place] % (Auto) 7.0 Eos % (Auto) 0.6 Baso % (Auto) 0.2 Neut # (Auto) 8.44 H Lymph # (Auto) 1.20 [place] # (Auto) 0.73 H Eos # (Auto) 0.06 Baso # (Auto) 0.02 Immature Gran # (Auto) 0.02 Sodium 144 Potassium 3.6 Chloride 115 H Carbon Dioxide 22 Anion Gap 7.0 BUN 36 H Creatinine 0.84 D Est Cr Clr Drug Dosing 63.4 Est GFR ( Amer) 94.5 Est GFR (Non-Af Amer) 81.5 BUN/Creatinine Ratio 42.7 H Glucose 77 Calcium 8.9 Magnesium Total Bilirubin AST 44 H ALT Alkaline Phosphatase C-Reactive Protein Total Protein Albumin Globulin Albumin/Globulin Ratio Procalcitonin Diagnostic Findings Brain MRI 09/26/20 12:59 MR brain wo con HISTORY: 80 years-old Male dysphagia x 2 months; eval for old/new stroke subacute stroke like symptoms COMPARISON: None TECHNIQUE: Multiplanar multisequence MRI of the brain was obtained without the use of IV contrast FINDINGS: Armament Aircraft Mechanic localizer images demonstrate no gross extracranial abnormality. There is no restricted diffusion to suggest acute or subacute infarct. 8 mm chronic lacunar infarct of the posterior aspect of the mid right cerebellar hemisphere. Age-related involutional changes. Minimal patchy T2/FLAIR hyperintensities the white matter are nonspecific however suggest chronic microvascular ischemic disease and are less than expected in a patient of this age group. No acute intracranial hemorrhage, midline shift, abnormal extra axial collection, hydrocephalus or intracranial mass. Cerebral venous sinuses are patent. The distal left vertebral artery is not visualized and may be hypoplastic. Mastoid air cells and paranasal sinuses are generally clear. Prior bilateral lens repair. The skull and soft tissues are within normal limits. IMPRESSION: No acute intracranial abnormality. No acute or subacute infarct. ACT 112: Negative or not required by law. The above report was generated using voice recognition software. It may contain grammatical, syntax or spelling errors. Electronically signed by: Justo Armijo M.D. 09/26/2020 6:57 PM PG Care Time/CCT Total # of Minutes Spent Total Time Spent with Patient: Total time spent is greater than 50% in coordination of care (as documented) at patient's floor/unit and/or counseling patient: Coding Level of Care Code 05062 Subseq Hosp Care Lvl 3 Diagnoses Dysphagia R13.10 Severe protein-calorie malnutrition E43 Leukocytosis D72.829 Elevated troponin I level R77.8 TESSA (acute kidney injury) N17.9 S/P TAVR (transcatheter aortic valve replacement) Z95.2 Hypertension I10 Elevated cholesterol E78.00 BPH (benign prostatic hyperplasia) N40.0 Old 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
--- NOTE | 2020-09-26 13:23 | Electrocardiogram Report ---
Test Reason : Blood Pressure : / mmHG Vent. Rate : 096 BPM Atrial Rate : 096 BPM P-R Int : 136 ms QRS Dur : 088 ms QT Int : 352 ms P-R-T Axes : -21 044 -11 degrees QTc Int : 444 ms Poor data quality, interpretation may be adversely affected Normal sinus rhythm Nonspecific T wave abnormality Abnormal ECG When compared with ECG of 25-SEP-2020 11:17, Non-specific change in ST segment in Inferior leads Nonspecific T wave abnormality now evident in Inferior leads Confirmed by Prosper Downey ([id number]) on 09/26/2020 1:23:10 PM Referred By: Davis Chu Confirmed By:Eris Downey
--- NOTE | 2020-09-26 18:59 | Magnetic Resonance Report ---
MR brain wo con HISTORY: 80 years-old Male dysphagia x 2 months; eval for old/new stroke subacute stroke like sympto ms COMPARISON: None TECHNIQUE: Multiplanar multisequence MRI of the brain was obtained without the use of IV contrast FINDINGS: Corporate Staff Accountant localizer images demonstrate no gross extracranial abnormality. There is no restricted diffusio n to suggest acute or subacute infarct. 8 mm chronic lacunar infarct of the posterior aspect of the m id right cerebellar hemisphere. Age-related involutional changes. Minimal patchy T2/FLAIR hyperintens ities the white matter are nonspecific however suggest chronic microvascular ischemic disease and are less than expected in a patient of this age group. No acute intracranial hemorrhage, midline shift, abnormal extra axial collection, hydrocephalus or intracranial mass. Cerebral venous sinuses are patent. The distal left vertebral artery is not visualized and may be hyp oplastic. Mastoid air cells and paranasal sinuses are generally clear. Prior bilateral lens repair. T he skull and soft tissues are within normal limits. IMPRESSION: No acute intracranial abnormality. No acute or subacute infarct. ACT 112: Negative or not required by law. The above report was generated using voice recognition software. It may contain grammatical, syntax o r spelling errors. Electronically signed by: Justo Armijo M.D. 09/26/2020 6:57 PM
[2020-09-27 05:25] LABS: Basophils # (auto) 0.02 K/uL (0-0.2); Basophils % (auto) 0.2 %; Eosinophils # (auto) 0.06 K/uL (0-0.5); Eosinophils % (auto) 0.6 %; Hematocrit (blood only) 40.3 % (42-52); Hemoglobin 13.4 g/dL (14.0-18.0); Immature Granulocytes # (auto) 0.02 K/uL (0.00-0.02); Immature Granulocytes % (auto) 0.2 %; Lymphocytes % (auto) 11.5 %; Mean Corpuscular Hemoglobin 29.5 pg (25-34); Mean Corpuscular Hgb Conc 33.3 g/dL (32-36); Mean Corpuscular Volume 88.6 fL (80-100); Mean Platelet Volume 10.5 fL (7.4-10.4); Monocytes # (auto) 0.73 K/uL (0.11-0.59); Neutrophils # (auto) 8.44 K/uL (1.4-6.5); Neutrophils % (auto) 80.5 %; Platelet Count 201 K/uL (130-400); RDW Standard Deviation 45.7 fL (36.4-46.3); Red Blood Count 4.55 M/uL (4.7-6.1); White Blood Count 10.47 K/uL (4.8-10.8)
[2020-09-27 05:43] LABS: BUN Creatinine Ratio 42.7 (10-20); Calcium 8.9 mg/dl (8.5-10.1); Creatinine Clr Calc Pharmacy 63.4 ml/min; Est GFR (African American) 94.5 ml/min; Est GFR (Non-African American) 81.5 ml/min; Potassium 3.6 mmol/L (3.5-5.1)
[2020-09-27] MEDS: D5W AND 1/2NSS + 20MEQ KCL 20 MEQ/1,000 ML BAG IV SCH ×2 (06:20→21:19)
[2020-09-27] MEDS ORDERED: SODIUM CHLORIDE 0.9% 1000ML 250 ML IV ONE (07:37)
[2020-09-27] MEDS: HEPARIN SOD 5,000 UNIT/0.5 ML VIAL SQ SCH ×2 (09:14→20:14)
[2020-09-27] MEDS: THIAMINE HCL 100 MG in SYRINGE 9 ML IV SCH (09:15)
[2020-09-27] MEDS: ARTIFICIAL TEARS OP SCH ×3 (09:15→20:14)
[2020-09-27] MEDS: FOLIC ACID 1 MG in SYRINGE 9.8 ML IV SCH (09:15)
--- NOTE | 2020-09-27 10:27 | Gastrointestinal Consultation ---
Date of Consultation September 27, 2020 Assessment & Plan (1) Dysphagia: -Keep NPO for possible EGD today if deemed acceptable risk per anesthesia. -Can trial Protonix 40 mg BID. -Further recommendations pending results of testing. Supervising Physician Co-Signing Physician Notes Agree with MADI Nelson as above Abd: Soft, NT, ND, +BS Continue supportive care and current medications Recommend EGD for Dysphagia now History of Present Illness Reason for Consultation: Dysphagia Attending Physician: Oz White MD History of Present Illness Patient is an 80 yo male with a PMH of TAVR in June 2020, malnutrition, HTN, HLD, & osteoarthritis who presented to the hospital with progressive symptoms of decreased oral intake and weight loss. Patient reports dysphagia to solids & liquids that has been ongoing since his TAVR in June. He denies heartburn & reflux. He denies melena, nausea, vomiting, abdominal pain. He denies family history of GI malignancy. He offers no further GI complaints at present. Reportedly he had an MRI and CT that suggested an old infarct of the brain, but no acute stroke noted. He denies pertinent family history of GI malignancy. Per documentation, it was felt that a video swallow was not able to be successfully undertaken. Patient denies he has ever had an EGD or colonoscopy. Of note, patient has an elevated troponin. He apparently underwent cardiac catheterization prior to his TAVR in June 2020. Allergies Allergy/AdvReac Type Severity Reaction Status Date / Time metoprolol AdvReac Severe Fingers Unverified 09/25/20 11:05 turned Blue/ Poor Circulation Home Medications Medication Instructions Recorded Confirmed Type cholecalciferol (vitamin D3) 50 50 mcg PO QAM #100 cap 09/28/18 09/25/20 History mcg (2,000 unit) capsule carboxymethyl 0.5 %-glycerin 1 1 drp OPHTHALMIC (EYE) TID 04/01/20 09/25/20 History %-polysorb 80 0.5 %-PF eye dropperette (Refresh Optive Evaristo-3 (PF)) lubricants topical gel 1 ea TOPICAL HS 04/01/20 09/25/20 History aspirin 81 mg tablet,delayed 81 mg PO QAM 07/12/20 09/25/20 History release lisinopril 5 mg tablet 5 mg PO QAM #90 tab 09/19/20 09/25/20 Rx atorvastatin 40 mg tablet (Lipitor) 40 mg PO HS 09/25/20 09/25/20 History tamsulosin 0.4 mg capsule 0.4 mg PO HS 09/25/20 09/25/20 History Patient History Medical History Aortic stenosis Resolved with TAVR. Aortic stenosis, severe BPH (benign prostatic hyperplasia) Cognitive decline Hypertension Obesity Osteoarthritis Surgical History History of cataract surgery R/L > subsequent laser surgery on eyes Family History Father Myocardial infarction Cardiac disorder Brother Myocardial infarction Cardiac disorder Hypertension FHx: deafness or hearing loss Sister Hypertension Cardiac disorder Denies family history of Ovarian cancer Prostate cancer Breast cancer Bleeding disorder Colorectal cancer Social History Smoking Status: Never smoker Second Hand Exposure: No; Hx Alcohol Use: No Hx Substance Use: No Preferred Language: Bulgarian Communication Ability: Effective Fish Seiner Required: No Beliefs That Will Affect Care: None marital status: Current Living Situation: Spouse current occupational status: retired current occupation: Retired Feels Safe at Home: Yes caffeine: Yes Dental Care, Regularly: Yes Physical Activity Frequency: Does not Exercise Seatbelt Use: always Sunscreen Use: No Assistive Devices: Hearing Aid - Bilateral Review of Systems Constitutional: no fever and no chills Respiratory: no cough and no dyspnea Cardiovascular: no chest pain Gastrointestinal: + dysphagia; no abdominal pain Physical Exam Constitutional: chronically ill appearing Neck: normal visual inspection Respiratory: normal respiratory effort Cardiovascular: Rate/Rhythm: + tachycardic Gastrointestinal (Abdomen): normal bowel sounds, soft, nontender, no hepatosplenomegaly Psychiatric: Orientation: alert, oriented to person and oriented to place Results & Data ([facility]) Vital Signs (Past 12 Hours) Vital Signs Temp Pulse Resp BP Pulse Ox 09/27/20 09:22 36.6 C 95 H 19 154/79 H 99 09/27/20 04:04 106 H 24 171/96 H 95 09/27/20 02:10 89 17 132/68 97 09/27/20 00:00 88 PG Care Time/CCT Total # of Minutes Spent Total Time Spent with Patient: Total time spent is greater than 50% in coor dination of care (as documented) at patient's floor/unit and/or counseling patient: Coding Level of Care Code 83816 Initial Inpt Care Lvl 3 Diagnoses Dysphagia R13.10
--- NOTE | 2020-09-27 13:11 | Anesthesiology Consultation ---
Date of Service September 27, 2020 History Surgery Operation Date: 09/27/20 18:10 Proposed Procedures p Esophagogastroduodenoscopy Dr Henry - Rigo Hawkins Case, DO Height/Weight Height: 5 ft 7 in Weight: 79.4 kg Allergies Allergy/AdvReac Type Severity Reaction Status Date / Time metoprolol AdvReac Severe Fingers Verified 09/27/20 13:10 turned Blue/ Poor Circulation Medications Home Medications Medication Instructions Recorded Confirmed Last Taken cholecalciferol (vitamin D3) 50 50 mcg PO QAM #100 cap 09/28/18 09/25/20 mcg (2,000 unit) capsule carboxymethyl 0.5 %-glycerin 1 1 drp OPHTHALMIC (EYE) TID 04/01/20 09/25/20 09/25/20 %-polysorb 80 0.5 %-PF eye dropperette (Refresh Optive Evaristo-3 (PF)) lubricants topical gel 1 ea TOPICAL HS 04/01/20 09/25/20 09/24/20 aspirin 81 mg tablet,delayed 81 mg PO QAM 07/12/20 09/25/20 09/24/20 release lisinopril 5 mg tablet 5 mg PO QAM #90 tab 09/19/20 09/25/20 09/24/20 atorvastatin 40 mg tablet (Lipitor) 40 mg PO HS 09/25/20 09/25/20 09/24/20 tamsulosin 0.4 mg capsule 0.4 mg PO HS 09/25/20 09/25/20 09/24/20 Active Medications Generic Name Dose Route Start Last Admin Trade Name Raymondq PRN Reason Stop Dose Admin Artificial Tears 1 drops 09/25/20 21:00 09/27/20 13:01 Artificial Tears OP 10/25/20 20:59 1 drops TID NIDA Administration Heparin Sodium (Porcine) 5,000 units 09/25/20 21:00 09/27/20 09:14 Heparin Sod 5,000 Unit/0.5 Ml Vial SQ 10/25/20 20:59 5,000 units Q12 NIDA Administration Thiamine HCl 100 mg/ Syringe 10 mls @ 2 mls/min 09/27/20 09:00 09/27/20 09:15 IV 10/27/20 08:59 2 mls/min QAM NIDA Administration Folic Acid 1 mg/ Syringe 10 mls @ 5 mls/min 09/27/20 09:00 09/27/20 09:15 IV 10/27/20 08:59 5 mls/min QAM NIDA Administration Potassium Chloride/Dextrose/Sod Cl 20 meq in 1,000 mls @ 75 mls/hr 09/27/20 06:00 09/27/20 06:20 D5w And 1/2nss + 20meq Kcl IV 10/27/20 05:59 75 mls/hr .[id number] NIDA Administration Past Medical History Medical History Aortic stenosis Resolved with TAVR. Aortic stenosis, severe BPH (benign prostatic hyperplasia) Cognitive decline Hypertension Obesity Osteoarthritis Past Family History Family History Father Myocardial infarction Cardiac disorder Brother Myocardial infarction Cardiac disorder Hypertension FHx: deafness or hearing loss Sister Hypertension Cardiac disorder Denies family history of Ovarian cancer Prostate cancer Breast cancer Bleeding disorder Colorectal cancer Past Surgical History Surgical History History of cataract surgery R/L > subsequent laser surgery on eyes Social History Smoking Status: Never smoker tobacco type: cigarettes Hx Alcohol Use: No Hx Substance Use: No substance use type: does not use Physical Exam Vital Signs Last Vital Signs Temp 36.9 C 09/27/20 11:02 Pulse 103 H 09/27/20 11:02 Resp 19 09/27/20 11:02 BP 153/65 H 09/27/20 11:02 Pulse Ox 98 09/27/20 11:02 Testing Laboratory Results 09/27/20 04:58 09/27/20 04:58 Urine Color Yellow 09/25/20 12:38 Urine Appearance Clear (Clear) 09/25/20 12:38 Urine pH 5.5 (4.5-7.5) 09/25/20 12:38 Ur Specific Lambert 1.022 (1.000-1.030) 09/25/20 12:38 Urine Protein Trace (Negative) H 09/25/20 12:38 Urine Glucose (UA) Negative (Negative) 09/25/20 12:38 Urine Ketones 2+ (Negative) H 09/25/20 12:38 Urine Nitrite Negative (Negative) 09/25/20 12:38 Ur Leukocyte Esterase 2+ (Negative) H 09/25/20 12:38 Urine WBC (Auto) >30 /hpf (0-5) H 09/25/20 12:38 Urine RBC (Auto) 0-4 /hpf (0-4) 09/25/20 12:38 U Hyaline Cast (Auto) 1-5 /lpf (0-5) 09/25/20 12:38 U Epithel Cells (Auto) 20-30 /lpf (0-5) H 09/25/20 12:38 Urine Bacteria (Auto) Negative (Negative) 09/25/20 12:38 09/25/20 11:45 Aerobic Blood Culture - Preliminary Blood No growth in Aerobic bottle after 48 hours. Anaerobic Blood Culture - Preliminary No growth in Anaerobic bottle after 48 hours. 09/25/20 11:31 Aerobic Blood Culture - Preliminary Blood No growth in Aerobic bottle after 48 hours. Anaerobic Blood Culture - Preliminary No growth in Anaerobic bottle after 48 hours. 09/25/20 12:38 Urine Culture - Final Urine,Clean Catch More than three types of organisms present, all high counts mixed probable skin jordana - No further identifications or sensitivities to follow.
--- NOTE | 2020-09-27 13:37 | GI REPORT ---
Patient Name: Henrique Ellis Procedure Date: 09/27/2020 1:13 PM Date of : 1940 Admit Type: Inpatient Age: 80 Gender: Male Attending MD: Rigo Henry DO Procedure: Upper GI endoscopy Providers: Rigo Henry DO Referring MD: Davis Chu Indications: Dysphagia Medicines: Monitored Anesthesia Care Complications: No immediate complications. Estimated Blood Loss: Estimated blood loss: none. Procedure: Pre-Anesthesia Assessment: - Prior to the procedure, a History and Physical was performed, and patient medications and allergies were reviewed. The patient's tolerance of previous anesthesia was also reviewed. The risks and benefits of the procedure and the sedation options and risks were discussed with the patient. All questions were answered, and informed consent was obtained. Prior Anticoagulants: The patient has taken heparin, last dose was day of procedure. ASA Grade Assessment: IV - A patient with severe systemic disease that is a constant threat to life. After reviewing the risks and benefits, the patient was deemed in satisfactory condition to undergo the procedure. After obtaining informed consent, the endoscope was passed under direct vision. Throughout the procedure, the patient's blood pressure, pulse, and oxygen saturations were monitored continuously. The Endoscope was introduced through the mouth, and advanced to the second part of duodenum. The upper GI endoscopy was accomplished without difficulty. The patient tolerated the procedure well. Findings: No endoscopic abnormality was evident in the esophagus to explain the patient's complaint of dysphagia. A small hiatal hernia was present. Many non-bleeding superficial gastric ulcers with no stigmata of bleeding were found in the gastric body and on the greater curvature of the stomach. The largest lesion was 5 mm in largest dimension. Diffuse moderate inflammation characterized by erosions was found in the gastric antrum. Biopsies were taken with a cold forceps for histology. Few non-bleeding cratered duodenal ulcers with no stigmata of bleeding were found in the duodenal bulb. The largest lesion was 10 mm in largest dimension. Impression: - No endoscopic esophageal abnormality to explain patient's dysphagia. - Small hiatal hernia. - Non-bleeding gastric ulcers with no stigmata of bleeding. - Gastritis. Biopsied. - Non-bleeding duodenal ulcers with no stigmata of bleeding. Recommendation: - [facility]. - NPO. - Continue present medications. - Recommend Tube feeds for nutrition and consider PEG tube placement for feedings if swallowing does not improve. Rigo Hawkins Case, DO 09/27/2020 1:36:57 PM This report has been signed electronically. Note Initiated On: 09/27/2020 1:13 PM Number of Addenda: 0 I attest to the content of the Intraoperative Record and orders documented therein, exceptions below {[id number]}
[2020-09-27] MEDS ORDERED: PROPOFOL IV EMULSION 10 MG/ML 20 ML VIAL IV ONE (13:57)
[2020-09-27] MEDS ORDERED: LIDOCAINE 2% 2 ML VIAL/AMP(20MG/ML) INFIL ONE (13:57)
--- NOTE | 2020-09-27 15:14 | Anesthesiology Progress Note ---
Date of Service September 27, 2020 Anesthesia Post Procedure Vital Signs Vital Signs: Temp Pulse Pulse Pulse Resp BP BP 09/27/20 14:16 102 H 16 151/92 H 09/27/20 13:59 101 H 16 140/88 09/27/20 13:44 94 H 16 114/64 09/27/20 13:11 36.4 C L 98 H 16 148/87 H 09/27/20 11:02 36.9 C 103 H 19 153/65 H 09/27/20 10:10 80 20 128/70 09/27/20 09:22 36.6 C 95 H 19 154/79 H 09/27/20 04:04 106 H 24 171/96 H 09/27/20 02:10 89 17 132/68 09/27/20 00:00 88 09/26/20 22:12 36.9 C 09/26/20 19:36 99 H 18 166/81 H 09/26/20 18:14 95 H 09/26/20 15:39 36.4 C L 101 H 20 151/77 H 09/26/20 15:36 88 09/26/20 15:23 20 Pulse Ox 09/27/20 14:16 97 09/27/20 13:59 96 09/27/20 13:44 92 09/27/20 13:11 99 09/27/20 11:02 98 09/27/20 10:10 98 09/27/20 09:22 99 09/27/20 04:04 95 09/27/20 02:10 97 09/27/20 00:00 09/26/20 22:12 09/26/20 19:36 100 09/26/20 18:14 09/26/20 15:39 99 09/26/20 15:36 09/26/20 15:23 Transfer of Care Handoff Completed per policy Notes Mental Status: alert / awake / arousable and participated in evaluation Patient Amnestic to Procedure: Yes Nausea / Vomiting: adequately controlled Pain: adequately controlled Airway Patency, RR, SpO2: stable & adequate BP & HR: stable & adequate Hydration State: stable & adequate Anesthetic Complications: no major complications apparent and Pt Satisfied with anesthetic care
[2020-09-27] MEDS ORDERED: OPTIRAY 320 100ml IV ONE (15:51)
--- NOTE | 2020-09-27 16:22 | CT Scan Report ---
CT soft tissue neck w con HISTORY: >1mo post-op dysphagia/loss of swallowing TECHNIQUE: Multiaxial CT images of the neck were performed following the use of intravenous contrast and reformatted in the sagittal and coronal planes at the workstation by the radiologist. COMPARISON STUDY: None. FINDINGS: The visualized brain parenchyma and orbits are unremarkable. The pterygopalatine fossa and paratracheal fat spaces are maintained. There are few punctate calcifications within the palatine ton sils. The major mucosal airways services are intact. The epiglottis and prevertebral soft tissues are within normal limits. There is a 1.4 cm right thyroid nodule. This does not meet CT criteria for fol low-up. The proximal trachea is normal in caliber and patent. No cervical lymphadenopathy or masses i dentified. The parotid and submandibular glands are symmetric. Mild emphysema. No pneumothorax. There are few punctate biapical nodules. These are of doubtful clinical significance. There is a 4 mm grou ndglass nodule within the left upper lobe on image 453. No suspicious lytic or blastic osseous lesion s. The visualized paranasal sinuses and mastoid air cells are clear. Mild calcified plaque within the bilateral carotid bifurcations. 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 IMPRESSION: No masses or lymphadenopathy identified within the neck. ACT 112: Negative or not required by law. Electronically signed by: Nixon Wolfe M.D. 09/27/2020 4:21 PM
--- NOTE | 2020-09-27 17:41 | Electrocardiogram Report ---
Test Reason : Blood Pressure : / mmHG Vent. Rate : 099 BPM Atrial Rate : 099 BPM P-R Int : 138 ms QRS Dur : 088 ms QT Int : 318 ms P-R-T Axes : 015 028 -49 degrees QTc Int : 408 ms Normal sinus rhythm with sinus arrhythmia Nonspecific ST abnormality When compared with ECG of 26-SEP-2020 06:47, Non-specific change in ST segment in Inferior leads Confirmed by Prosper Downey ([id number]) on 09/27/2020 5:41:07 PM Referred By: Davis Chu Confirmed By:Eris Downey
--- NOTE | 2020-09-27 18:48 | Hospitalist Progress Note ---
Date of Service September 27, 2020 Assessment & Plan (1) Dysphagia: Plan: - Symptoms for ~2 months onset ~1 months after TAVR at [facility] [place] - No old stroke seen on MRI brain during admission that was obtained that would account for swallowing dysfunction (old R cerebellar lacune only). -No mass or obstruction/stricture seen on EGD. Follow-up CT with contrast did not show any lesions in the neck/upper chest like to contribute to his dysfunction -Patient also reports a hoarse voice for the last month or 2, differential includes a procedural nerve injury Patient unable to swallow safely, multiple reports of extreme coughing at home even with thick liquids such as applesauce GI consulted, appreciate recommendations Safe placed, enteral nutrition initiated Discussed likelihood of needing a PEG tube for nutrition. At this point patient is unable to swallow safely and a reversible cause has not been identified. (2) Severe protein-calorie malnutrition: Plan: Severe weight loss (14kg) since his TAVR. Enteral nutrition as noted in dysphagia (3) Leukocytosis: Plan: -Resolved -procal negative. -no infectious symptoms. -COVID negative. -cxr without pneumonia. -urine cx and blood cx's ngtd (4) Elevated troponin I level: Plan: - Myocardial demand ischemia in setting of dehydration, TESSA, etc. - No true ACS. 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 (5) TESSA (acute kidney injury): Plan: - 2nd volume depletion due to inability to take proper nutrition & hydration. - Peak Cr 1.5. - Normalized - Nutrition as above, continue IVF until started - BMP daily - Hold J[place]. (6) S/P TAVR (transcatheter aortic valve replacement): Plan: -June 2020 at [facility] [place]. (7) Hypertension: Plan: -While NPO simply follow BPs. - Pt normotensive, intermittently hypertensive today - Restart J[place] tomorrow (8) Elevated cholesterol: Plan: Hold statin. (9) BPH (benign prostatic hyperplasia): Plan: Hold flomax. (10) Old lacunar stroke without late effect: Plan: - on MRI brain - old, small, right-sided cerebellar lacunar stroke. -age-indeterminate but not related to presenting issues. - when allowed to take PO should resume asa with statin. (11) Elevated AST (SGOT): Plan: - Mild elevation - Trend Admission and Anticipated Discharge Date Admission Date: September 25, 2020 Subjective Patient seen at bedside with family, case discussed in detail. EGD shows evidence of some gastric/peptic ulcers without stigmata of bleeding, no structural cause of his symptoms were revealed. Discussed follow-up with CT/neck, and pursuing NG tube and possible PEG in the future. Patient expressed an understanding of this, and agrees to proceed with NGT. Numerous questions about PEG discussed, anticipate need if no obvious/correctable source of his dysphagia is identified. Otherwise patient reports he feels well, and is not having any pain today. His notes that in the past when he has tried to have even thickened liquids like applesauce he has had copious coughing to the point where he is "red in the face ". Review of Systems Review of Systems: Constitutional: Denies fever, chills, malaise, weight ch tonie Eyes: Denies double vision, vision change, eye pain ENT: Denies ear pain, sore throat, sinus pain Cardiovascular: Denies Chest pain, chest pressure, palpitations, extremity swelling Respiratory: Denies shortness of breath, cough, sputum production, difficulty breathing. Endorses chronically hoarse voice for 6 weeks Gastrointestinal: Endorses dysphagia and inability to swallow. Denies abdominal pain, nausea, vomiting, constipation, diarrhea Genitourinary: Denies pain with urination, urinary urgency, urinary frequency Musculoskeletal: Denies muscle aches/pain, joint aches/pain Integumentary:Denies rash, lesions, bruising Neurological: Denies headache, numbness, tingling Physical Exam Physical Exam: General: A&Ox3. NAD. Cooperative. HEENT: Atraumatic, normocephalic. PERLAA. EoM intact. Pulm: CTAB A&P. -wheezes, -rales, -rhonchi. Symmetrical chest rise. No increase work of breathing. No respiratory distress. Cardiac: RRR, -mrg. Radial pulses intact and symmetrical. Abdominal: Nontender, nondistended, soft. BS present. Results & Data Results & Data ([facility]) Vital Signs (Past 12 Hours) Vital Signs Temp Pulse Pulse Pulse Resp BP BP 09/27/20 16:00 100 H 16 09/27/20 15:30 74 3 L 09/27/20 15:00 81 0 L 09/27/20 14:30 107 H 22 09/27/20 14:29 100 H 21 09/27/20 14:16 102 H 16 151/92 H 09/27/20 13:59 101 H 16 140/88 09/27/20 13:44 94 H 16 114/64 09/27/20 13:11 36.4 C L 98 H 16 148/87 H 09/27/20 12:30 98 H 19 09/27/20 12:00 103 H 0 L 09/27/20 11:30 103 H 15 09/27/20 11:02 36.9 C 103 H 19 153/65 H 09/27/20 11:01 109 H 16 09/27/20 10:10 80 20 128/70 09/27/20 09:22 36.6 C 95 H 19 154/79 H Pulse Ox 09/27/20 16:00 09/27/20 15:30 09/27/20 15:00 09/27/20 14:30 09/27/20 14:29 09/27/20 14:16 97 09/27/20 13:59 96 09/27/20 13:44 92 09/27/20 13:11 99 09/27/20 12:30 09/27/20 12:00 09/27/20 11:30 09/27/20 11:02 98 09/27/20 11:01 09/27/20 10:10 98 09/27/20 09:22 99 PG Care Time/CCT Total # of Minutes Spent Total Time Spent with Patient: Total time spent is greater than 50% in coordination of care (as documented) at patient's floor/unit and/or counseling patient: Coding Level of Care Code 87277 Subseq Hosp Care Lvl 3 Diagnoses Dysphagia R13.10 Severe protein-calorie malnutrition E43 Leukocytosis D72.829 Elevated troponin I level R77.8 TESSA (acute kidney injury) N17.9 S/P TAVR (transcatheter aortic valve replacement) Z95.2 Hypertension I10 Elevated cholesterol E78.00 BPH (benign prostatic hyperplasia) N40.0 Old 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
[2020-09-27] MEDS: PANTOprazole 40 MG TAB PO SCH (20:20)
[2020-09-28 06:06] LABS: Basophils # (auto) 0.02 K/uL (0-0.2); Basophils % (auto) 0.1 %; Eosinophils % (auto) 0.7 %; Hemoglobin 13.6 g/dL (14.0-18.0); Immature Granulocytes # (auto) 0.04 K/uL (0.00-0.02); Immature Granulocytes % (auto) 0.3 %; Lymphocytes % (auto) 8.7 %; Mean Corpuscular Hemoglobin 29.2 pg (25-34); Mean Corpuscular Hgb Conc 33.2 g/dL (32-36); Mean Corpuscular Volume 88.2 fL (80-100); Mean Platelet Volume 10.9 fL (7.4-10.4); Monocytes # (auto) 0.92 K/uL (0.11-0.59); Monocytes % (auto) 6.2 %; Neutrophils # (auto) 12.53 K/uL (1.4-6.5); Platelet Count 193 K/uL (130-400); RDW Coefficient of Variation 13.9 % (11.5-14.5); RDW Standard Deviation 44.9 fL (36.4-46.3); Red Blood Count 4.65 M/uL (4.7-6.1); White Blood Count 14.91 K/uL (4.8-10.8)
[2020-09-28 06:43] LABS: BUN Creatinine Ratio 27.2 (10-20); Calcium 8.6 mg/dl (8.5-10.1); Creatinine Clr Calc Pharmacy 64.2 ml/min; Est GFR (Non-African American) 81.9 ml/min
--- NOTE | 2020-09-28 07:02 | Hospitalist Progress Note ---
Date of Service September 28, 2020 Assessment & Plan (1) Dysphagia: Plan: - Symptoms for ~2 months onset ~1 months after [place] [facility] [place] No old stroke seen on MRI brain during admission that was obtained that would account for swallowing dysfunction (old R cerebellar lacune only). -No mass or obstruction/stricture seen on EGD. Follow-up CT with contrast did not show any lesions in the neck/upper chest like to contribute to his dysfunction -Patient also reports a hoarse voice for the last month or 2, differential includes nerve injury Patient unable to swallow safely, multiple reports of extreme coughing at home even with thick liquids such as applesauce GI consulted, appreciate recommendations Core safe placed. Trickle feeds started with fiber source HN, goal rate 60 cc/h with 150 cc free water flush every 4. D5 removed from fluids. Anticipate need for PEG tube for nutrition, discussed with pt and today. At this point patient is unable to swallow safely and a reversible cause has not been identified. (2) Severe protein-calorie malnutrition: Plan: Severe weight loss (14kg) since his TAVR. Enteral nutrition as noted in dysphagia (3) Leukocytosis: Plan: -Resolved, increased to 14 without vomiting today. -procal negative. -no infectious symptoms. -COVID negative. -cxr without pneumonia. -urine cx and blood cx's ngtd - Follow clinically, no aspiration events noted. If worsening consider CXR (4) Elevated troponin I level: Plan: - Myocardial demand ischemia in setting of dehydration, TESSA, etc. - No true ACS. 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 (5) TESSA (acute kidney injury): Plan: - 2nd volume depletion due to inability to take proper nutrition & hydration. - Peak Cr 1.5. - Normalized - Nutrition as noted - BMP daily - Hold [place]. (6) S/P TAVR (transcatheter aortic valve replacement): Plan: -June 2020 at [facility] [place]. (7) Hypertension: Plan: Patient hypotensive with poor intake, improved with fluid bolus - Restart J[place] tomorrow (8) Elevated cholesterol: Plan: Hold statin. (9) BPH (benign prostatic hyperplasia): Plan: Hold flomax. (10) Old lacunar stroke without late effect: Plan: - on MRI brain - old, small, right-sided cerebellar lacunar stroke. -age-indeterminate but not related to presenting issues. - when allowed to take PO should resume asa with statin. (11) Elevated AST (SGOT): Plan: - Mild elevation - Trend Admission and Anticipated Discharge Date Admission Date: September 25, 2020 Subjective Patient is seen at the bedside with his . He is clinically unchanged today, poor memories from it was somewhat poor insight into his condition. Discussed that it may be a prolonged course before his swallowing ability returns, if at all. Patient expresses that he understands this and the need for an NGT and possible PEG tube, his also expresses an understanding of this and would like discuss the case with her daughter present tomorrow. No additional questions or concerns. Henrique reports that overall he feels okay, with no chest pain, chest pressure, shortness of breath, difficulty breathing, or stomach pain. He continues to report that he cannot swallow and "spits out "most of his mucus and saliva. Continues to use oral swabs which help with dryness. Review of Systems Review of Systems: Constitutional: Denies fever, chills, malaise Eyes: Denies double vision, vision change, eye pain ENT: Denies ear pain, sore throat, sinus pain Cardiovascular: Denies Chest pain, chest pressure, palpitations, extremity swelling Respiratory: Denies shortness of breath, cough, difficulty breathing. Endorses chronically hoarse voice for 6 weeks. Endorses having to "spit up "his mucus and spit, no cough at baseline but reports when he has tried to take any sips of liquids in the past has caused coughing fits. Gastrointestinal: Endorses dysphagia and inability to swallow. Denies abdominal pain, nausea, vomiting, constipation, diarrhea Genitourinary: Denies pain with urination, urinary urgency, urinary frequency Musculoskeletal: Denies muscle aches/pain, joint aches/pain Integumentary:Denies rash, lesions, bruising Neurological: Denies headache, numbness, tingling Physical Exam Physical Exam: General: A&Ox3. NAD. Cooperative. HEENT: Atraumatic, normocephalic. PERLAA. EoM intact. Pulm: CTAB A&P. -wheezes, -rales, -rhonchi. Symmetrical chest rise. No increase work of breathing. No respiratory distress. Cardiac: RRR, -mrg. Radial pulses intact and symmetrical. Abdominal: Nontender, nondistended, soft. BS present. Results & Data Results & Data ([facility]) Vital Signs (Past 12 Hours) Vital Signs Temp Pulse Resp BP Pulse Ox 09/28/20 04:13 36.4 C L 72 18 130/67 98 09/27/20 23:59 37.1 C 77 24 143/74 H 93 09/27/20 19:37 36.6 C 96 H 24 157/83 H 97 PG Care Time/CCT Total # of Minutes Spent Total Time Spent with Patient: Total time spent is greater than 50% in coordination of care (as documented) at patient's floor/unit and/or counseling patient: Coding Level of Care Code 76954 Subseq Hosp Care Lvl 3 Diagnoses Dysphagia R13.10 Severe protein-calorie malnutrition E43 Leukocytosis D72.829 Elevated troponin I level R77.8 TESSA (acute kidney injury) N17.9 S/P TAVR (transcatheter aortic valve replacement) Z95.2 Hypertension I10 Elevated cholesterol E78.00 BPH (benign prostatic hyperplasia) N40.0 Old 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
[2020-09-28] MEDS: THIAMINE HCL 100 MG in SYRINGE 9 ML IV SCH (09:20)
[2020-09-28] MEDS: D5W AND 1/2NSS + 20MEQ KCL 20 MEQ/1,000 ML BAG IV SCH (09:20)
[2020-09-28] MEDS: HEPARIN SOD 5,000 UNIT/0.5 ML VIAL SQ SCH ×2 (09:20→20:54)
[2020-09-28] MEDS: FOLIC ACID 1 MG in SYRINGE 9.8 ML IV SCH (09:21)
[2020-09-28] MEDS: PANTOprazole 40 MG TAB PO SCH (10:15)
[2020-09-28] MEDS: PANTOprazole 40 MG in SYRINGE 0 ML IV SCH ×2 (11:15→20:53)
[2020-09-28] MEDS: ARTIFICIAL TEARS OP SCH ×3 (11:16→20:53)
--- NOTE | 2020-09-28 11:32 | XRay Report ---
KUB HISTORY: Status post placement of a feeding tube newly inserted NG tube placement needs checked COMPARISON: Chest radiograph 09/25/2020 FINDINGS: Nonobstructive bowel gas pattern. The pelvis and left lateral abdomen are excluded from the [id number]. A feeding tube is present with distal tip projected over the proximal stomach. Aortic valvular endograft. No renal calculi. No ureteral calculi. No pneumoperitoneum or pneumatosis. No f racture. IMPRESSION: Distal tip of feeding tube projects over the proximal stomach. ACT 112: Negative or not required by law. The above report was generated using voice recognition software. It may contain grammatical, syntax o r spelling errors. Electronically signed by: Justo Armijo M.D. 09/28/2020 11:30 AM
--- NOTE | 2020-09-28 12:37 | XRay Report ---
KUB HISTORY: Status post placement of an enteric tube checking NG tube placement COMPARISON: KUB of same day at 11:07 AM FINDINGS: The lower abdomen is excluded from the [id number]. A feeding tube is again noted project ing over the proximal stomach which appears unchanged in positioning from comparison. Aortic valvular endograft. No renal calculi. No ureteral calculi. No pneumoperitoneum or pneumatosis. No fracture. IMPRESSION: Distal tip of feeding tube is again noted projected over the proximal stomach. ACT 112: Negative or not required by law. The above report was generated using voice recognition software. It may contain grammatical, syntax o r spelling errors. Electronically signed by: Justo Armijo M.D. 09/28/2020 12:36 PM
[2020-09-28] MEDS ORDERED: SODIUM CHLORIDE 0.9% 1000ML 250 ML IV ONE (19:49)
[2020-09-28] MEDS: TUBE FEEDING WATER FLUSH GT SCH (20:34)
[2020-09-28] MEDS: FIBERSOURCE HN 1.2 CAL 1000 ML BAG PO SCH (20:35)
[2020-09-28] MEDS: POTASSIUM CHLORIDE 10 MEQ in SODIUM CHLORIDE 0.45 % 1,000 ML IV SCH (20:56)
[2020-09-29] MEDS: TUBE FEEDING WATER FLUSH GT SCH ×7 (00:05→23:52)
[2020-09-29 06:29] LABS: BUN Creatinine Ratio 23.8 (10-20); Calcium 8.8 mg/dl (8.5-10.1); Creatinine Clr Calc Pharmacy 69.2 ml/min; Est GFR (African American) 97.9 ml/min; Est GFR (Non-African American) 84.5 ml/min; Potassium 4.3 mmol/L (3.5-5.1)
--- NOTE | 2020-09-29 06:59 | Hospitalist Progress Note ---
Date of Service September 29, 2020 Assessment & Plan (1) Dysphagia: Plan: - Symptoms for ~2 months onset ~1 months after [place]R [place] [facility] [place] - No old stroke seen on MRI brain during admission that was obtained that would account for swallowing dysfunction (old R cerebellar lacune only). -No mass or obstruction/stricture seen on EGD. Follow-up CT with contrast did not show any lesions in the neck/upper chest like to contribute to his dysfunction -Patient also reports a hoarse voice for the last month or 2, differential includes nerve injury Patient unable to swallow safely, multiple reports of extreme coughing at home even with thick liquids such as applesauce GI consulted, appreciate recommendations Core safe placed. Feeds started with fiber source HN, goal rate 60 cc/h with 150 cc free water flush every 4 hours. Current rate 30 cc/h, tolerating well. D5 removed from fluids. GI is consulted, recommend receding with formal PEG tube consultation tomorrow as at this point patient is unable to swallow safely and a reversible cause has not been identified. (2) Severe protein-calorie malnutrition: Plan: Severe weight loss (14kg) since his TAVR. Enteral nutrition as noted in dysphagia (3) Leukocytosis: Plan: -No leukocytosis 09/29, repeat chest x-ray without interval pneumonia -procal negative. -no infectious symptoms. -COVID negative. -urine cx and blood cx's ngtd - Follow clinically, on room air, continue to monitor for aspiration events with depression precautions (4) Elevated troponin I level: Plan: - Myocardial demand ischemia in setting of dehydration, TESSA, etc. - No true ACS. 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 (5) TESSA (acute kidney injury): Plan: - 2nd volume depletion due to inability to take proper nutrition & hydration. - Peak Cr 1.5. - Normalized - Nutrition as noted - BMP daily - Hold [place]. (6) S/P TAVR (transcatheter aortic valve replacement): Plan: -June 2020 at [facility] [place]. (7) Hypertension: Plan: Patient hypotensive with poor intake, improved with fluid bolus - Restart [place] tomorrow (8) Elevated cholesterol: Plan: Hold statin. (9) BPH (benign prostatic hyperplasia): Plan: Hold flomax. (10) Old lacunar stroke without late effect: Plan: - on MRI brain - old, small, right-sided cerebellar lacunar stroke. -age-indeterminate but not related to presenting issues. - when allowed to take PO should resume asa with statin. (11) Elevated AST (SGOT): Plan: - Mild elevation - Trend (12) Lung nodule < 6cm on CT: Plan: Solitary 4 mm groundglass lung nodule appreciated on CT, does not meet criteria for follow-up although entire lung gannon incompletely visualized. Consider CTchest f/u Plan: Henrique Ellis is an 80-year-old male who presents with dysphagia 1 month following TAVR progressive and at this point who is not able to initiate any meaningful swallow. He is not safe for barium swallow or instrumentation test per [employer], and is at high risk for aspiration. He is tolerating NGT feeds currently continuous being uptitrated to a goal of 60 cc/h, recommend proceeding with PEG evaluation and placement. Otherwise he is medically stable, and recommending a do with PT/OT expect his strength to begin to improve with nutrition support. Admission and Anticipated Discharge Date Admission Date: September 25, 2020 Wilbert Duenas is seen at the bedside this morning with his daughter. He denies pain, nausea, vomiting, diarrhea, constipation, fever, chills, shortness of breath, difficulty breathing, chest pain, chest pressure, palpitations, extremity pain overnight. He reports overall he feels "good "what is the next step ". Tolerating continuous feeds at a rate of 30/h well, goal rate 60/h. His overall case and all details were reviewed in detail with his daughter at the bedside. They report they understand that no structural or central neurologic cause of his inability to swallow has been identified, and that he continues to have the inability to initiate any safe swallow at all and cannot take even ice chips or pills. Case was also discussed with speech-language pathology who feels he has no intact swallow initiation, and would not be safe for instrumentation test or barium swallow. Based on this, discussed proceeding forward with a PEG tube for nutritional needs and continued assessment as outpatient although guarded prognosis for whether his ability to swallow will return over several weeks/months if at all. Discussed that given that he has had a hoarse voice at the same time, but the endoscopy was normal, this may reflect a peripheral nerve involvement. GI is consulted on the case, anticipate formal PEG tube consultation tomorrow. He is otherwise medically doing well, and once tolerating nutrition can be assessed for disposition, daughter reports that she knows he has lost a lot of strength in weight from not being able to swallow and will likely need rehab. Review of Systems Review of Systems: Constitutional: Denies fever, chills, malaise Eyes: Denies double vision, vision change, eye pain ENT: Denies ear pain, sore throat, sinus pain Cardiovascular: Denies Chest pain, chest pressure, palpitations, extremity swelling Respiratory: Denies shortness of breath, cough, difficulty breathing. Endorses chronically hoarse voice for 6 weeks. Endorses having to "spit up "his mucus and spit, no cough at baseline but reports when he has tried to take any sips of liquids in the past has caused coughing fits. Gastrointestinal: Endorses dysphagia and inability to swallow. Denies abdominal pain, nausea, vomiting, constipation, diarrhea Genitourinary: Denies pain with urination, urinary urgency, urinary frequency Musculoskeletal: Denies muscle aches/pain, joint aches/pain Integumentary:Denies rash, lesions, bruising Neurological: Denies headache, numbness, tingling Physical Exam Physical Exam: General: A&Ox3. NAD. Cooperative. HEENT: Atraumatic, normocephalic. PERLAA. EoM intact. Pulm: CTAB A&P. -wheezes, -rales, -rhonchi. Symmetrical chest rise. No increase work of breathing. No respiratory distress. Cardiac: RRR, -mrg. Radial pulses intact and symmetrical. Abdominal: Nontender, nondistended, soft. BS present. Results & Data Results & Data ([facility]) Vital Signs (Past 12 Hours) Vital Signs Temp Pulse Pulse Resp BP Pulse Ox 09/29/20 04:00 36.5 C 85 18 164/74 H 96 09/29/20 00:00 69 09/28/20 20:18 37.2 C 68 18 154/83 H 97 PG Care Time/CCT Total # of Minutes Spent Total Time Spent with Patient: Total time spent is greater than 50% in coordination of care (as documented) at patient's floor/unit and/or counseling patient: Coding Level of Care Code 57664 Subseq Hosp Care Lvl 3 Diagnoses Dysphagia R13.10 Severe protein-calorie malnutrition E43 Leukocytosis D72.829 Elevated troponin I level R77.8 TESSA (acute kidney injury) N17.9 S/P TAVR (transcatheter aortic valve replacement) Z95.2 Hypertension I10 Elevated cholesterol E78.00 BPH (benign prostatic hyperplasia) N40.0 Old 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
[2020-09-29] MEDS: ARTIFICIAL TEARS OP SCH ×3 (08:17→20:26)
[2020-09-29] MEDS: PANTOprazole 40 MG in SYRINGE 0 ML IV SCH ×2 (08:18→20:26)
[2020-09-29] MEDS: THIAMINE HCL 100 MG in SYRINGE 9 ML IV SCH (08:18)
[2020-09-29] MEDS: HEPARIN SOD 5,000 UNIT/0.5 ML VIAL SQ SCH ×2 (08:18→20:26)
[2020-09-29] MEDS: FOLIC ACID 1 MG in SYRINGE 9.8 ML IV SCH (08:18)
[2020-09-29] MEDS: POTASSIUM CHLORIDE 10 MEQ in SODIUM CHLORIDE 0.45 % 1,000 ML IV SCH (08:28)
[2020-09-29] MEDS: FIBERSOURCE HN 1.2 CAL 1000 ML BAG PO SCH ×3 (12:59→21:03)
[2020-09-29 17:33] LABS: Basophils # (auto) 0.02 K/uL (0-0.2); Basophils % (auto) 0.2 %; Eosinophils # (auto) 0.21 K/uL (0-0.5); Hematocrit (blood only) 40.2 % (42-52); Hemoglobin 13.5 g/dL (14.0-18.0); Immature Granulocytes # (auto) 0.02 K/uL (0.00-0.02); Immature Granulocytes % (auto) 0.2 %; Lymphocytes # (auto) 1.33 K/uL (1.2-3.4); Mean Corpuscular Hemoglobin 29.3 pg (25-34); Mean Corpuscular Hgb Conc 33.6 g/dL (32-36); Mean Corpuscular Volume 87.4 fL (80-100); Mean Platelet Volume 10.4 fL (7.4-10.4); Monocytes # (auto) 0.89 K/uL (0.11-0.59); Monocytes % (auto) 8.7 %; Neutrophils # (auto) 7.79 K/uL (1.4-6.5); Neutrophils % (auto) 75.9 %; Platelet Count 155 K/uL (130-400); RDW Coefficient of Variation 13.7 % (11.5-14.5); RDW Standard Deviation 43.8 fL (36.4-46.3); White Blood Count 10.26 K/uL (4.8-10.8)
--- NOTE | 2020-09-29 19:32 | XRay Report ---
XR chest 1V portable HISTORY: Cough. Aspiration pneumonia. COMPARISON: Chest 09/25/2020. FINDINGS: The feeding tube terminates in the proximal stomach. A cardiac valve stent is again noted. The heart is normal in size. No pneumothorax. No pleural effusions. No new focal lung consolidations to suggest pneumonia. No evidence for pulmonary edema. IMPRESSION: 1. No focal lung consolidations to suggest pneumonia. 2. The feeding tube terminates in the proximal stomach. ACT 112: Negative or not required by law. Electronically signed by: Nixon Wolfe M.D. 09/29/2020 7:31 PM
[2020-09-30] MEDS: TUBE FEEDING WATER FLUSH GT SCH ×5 (03:50→20:25)
[2020-09-30] MEDS: FIBERSOURCE HN 1.2 CAL 1000 ML BAG PO SCH ×2 (05:12→17:26)
[2020-09-30 06:57] LABS: BUN Creatinine Ratio 22.4 (10-20); Calcium 8.2 mg/dl (8.5-10.1); Creatinine Clr Calc Pharmacy 77.2 ml/min; Est GFR (African American) 102.5 ml/min; Est GFR (Non-African American) 88.4 ml/min; Potassium 3.5 mmol/L (3.5-5.1)
[2020-09-30] MEDS: ARTIFICIAL TEARS OP SCH ×3 (07:55→20:25)
[2020-09-30] MEDS: THIAMINE HCL 100 MG in SYRINGE 9 ML IV SCH (08:48)
[2020-09-30] MEDS: PANTOprazole 40 MG in SYRINGE 0 ML IV SCH ×2 (08:48→20:25)
[2020-09-30] MEDS: FOLIC ACID 1 MG in SYRINGE 9.8 ML IV SCH (08:48)
[2020-09-30] MEDS: HEPARIN SOD 5,000 UNIT/0.5 ML VIAL SQ SCH (08:49)
--- NOTE | 2020-09-30 09:17 | History & Physical Bridge Note ---
Date of Service September 30, 2020 History & Physical Bridge Note I have examined the patient, reviewed the History & Physical and in the interval since the performance of the History & Physical I have noted the following changes of clinical significance: Patient without return of swallowing. Requires suction to manage oral secretions. NG tube
--- NOTE | 2020-09-30 09:25 | Gastroenterology Progress Note ---
Date of Service September 30, 2020 Assessment & Plan (1) Dysphagia: (2) Swallowing dysfunction: Plan: * Tube feeds were continued this morning, therefore unable to place PEG today. * Hold tube feeds post midnight tonight. * Hold heparin for procedure, minimum of 6 hours before * EGD with PEG placement tomorrow, 10/01/[address] Huston. * Continue supportive care. Admission and Anticipated Discharge Date Admission Date: September 25, 2020 Supervising Physician Co-Signing Physician Notes I personally evaluated the patient and agree with the findings as documented by NOY Paul Exam: abd: soft, nt, nd Subjective Patient remains NPO with NG tube feeds. Using suction to maintain oral secretions. Denies abdominal pain or other GI complaints. Review of Systems Ear, Nose, Mouth, Throat: as per Subjective / HPI Gastrointestinal: as per Subjective / HPI Physical Exam Constitutional: WD/WN, vitals as above Respiratory: normal respiratory effort, lungs clear to auscultation Cardiovascular: Rate/Rhythm: regular rate and regular rhythm Gastrointestinal (Abdomen): normal bowel sounds, soft, nontender, no hepatosplenomegaly Results & Data Results & Data ([facility]) Vital Signs (Past 12 Hours) Vital Signs Temp Pulse Resp BP Pulse Ox 09/30/20 07:26 36.5 C 83 19 136/86 96 09/30/20 03:53 36.5 C 65 22 117/64 97 09/29/20 22:41 36.6 C 84 20 146/58 H 97 PG Care Time/CCT Total # of Minutes Spent Total Time Spent with Patient: Total time spent is greater than 50% in coordination of care (as documented) at patient's floor/unit and/or counseling patient: Coding Level of Care Code 75692 Subseq Hosp Care Lvl 3 Diagnoses Dysphagia R13.10 Swallowing dysfunction R13.10
--- NOTE | 2020-09-30 11:40 | Hospitalist Progress Note ---
Date of Service September 30, 2020 Assessment & Plan (1) Dysphagia: Plan: - Symptoms for ~2 months onset ~1 [place] [facility] [place] old stroke seen on MRI brain during admission that was obtained that would account for swallowing dysfunction (old R cerebellar lacune only). -No mass or obstruction/stricture seen on EGD. Follow-up CT with contrast did not show any lesions in the neck/upper chest like to contribute to his dysfunction -Patient also reports a hoarse voice for the last month or 2, differential includes nerve injury Patient unable to swallow safely, multiple reports of extreme coughing at home even with thick liquids such as applesauce Core safe placed. Feeds started with fiber source HN, goal rate 60 cc/h with 150 cc free water flush every 4 hours. tolerating well GI is consulted, plan for PEG tomorrow, hold tube feeds at midnight, hold heparin SC in the morning downgrade to medical floor today try for rehab on Wednesday (2) Severe protein-calorie malnutrition: Plan: Severe weight loss (14kg) since his TAVR. Enteral nutrition as noted in dysphagia goal of 60cc/hr, will transition to PEG feedings tomorrow (3) Leukocytosis: Plan: -No leukocytosis 09/29, repeat chest x-ray without interval pneumonia -procal negative. -no infectious symptoms. -COVID negative. -urine cx and blood cx's ngtd - Follow clinically, on room air, continue to monitor for aspiration events with depression precautions (4) Elevated troponin I level: Plan: - Myocardial demand ischemia in setting of dehydration, TESSA, etc. - No true ACS. 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 (5) TESSA (acute kidney injury): Plan: - 2nd volume depletion due to inability to take proper nutrition & hydration. - Peak Cr 1.5. - Normalized - Nutrition as noted - BMP daily - continue to hold [place]. (6) S/P TAVR (transcatheter aortic valve replacement): Plan: [place] 2020 [place] [facility] [place] (7) Hypertension: Plan: Patient hypotensive with poor intake, improved with fluid bolus - Restart [place] tomorrow (8) Elevated cholesterol: Plan: Hold statin. (9) BPH (benign prostatic hyperplasia): Plan: Hold flomax. (10) Old lacunar stroke without late effect: Plan: - on MRI brain - old, small, right-sided cerebellar lacunar stroke. -age-indeterminate but not related to presenting issues. - when allowed to take PO should resume asa with statin. (11) Elevated AST (SGOT): Plan: - Mild elevation - Trend (12) Lung nodule < 6cm on CT: Plan: Solitary 4 mm groundglass lung nodule appreciated on CT, does not meet criteria for follow-up although entire lung gannon incompletely visualized. Consider CTchest f/u Plan: PEG tomorrow, try for rehab on Wednesday unsure how long the dysphagia will last Admission and Anticipated Discharge Date Admission Date: September 25, 2020 Subjective patient doing well, no new issues, tolerating tube feeds breathing well, no cough, no chest pain, no fever plan for PEG tube tomorrow, hold tube feeds at midnight and hold heparin SC try for rehab as early as Wednesday Review of Systems Review of Systems: All systems reviewed & are unremarkable except as noted in Subjective Physical Exam Constitutional: well developed, + thin and comfortable; no acute distress Neck: trachea midline, no thyromegaly Respiratory: normal respiratory effort, lungs clear to auscultation Cardiovascular: RRR, no murmur, no edema Gastrointestinal (Abdomen): normal bowel sounds, soft, nontender, no hepatosplenomegaly Musculoskeletal: no cyanosis or clubbing, extremities motor strength 5/5 Skin: no rashes, warm and dry Neurologic: normal touch/pain/proprioception, moves all extremities and awake; + CN's not intact (cannot swallow safely) and no focal motor deficits Psychiatric: A+Ox3, euthymic affect Results & Data Results & Data ([facility]) Vital Signs (Past 12 Hours) Vital Signs Temp Pulse Resp BP Pulse Ox 09/30/20 07:26 36.5 C 83 19 136/86 96 09/30/20 03:53 36.5 C 65 22 117/64 97 Laboratory Results Laboratory Results - last 24 hr 09/29/20 09/29/20 09/29/20 12:57 17:25 17:58 WBC 10.26 RBC 4.60 L Hgb 13.5 L Hct 40.2 L MCV 87.4 MCH 29.3 MCHC 33.6 RDW Std Deviation 43.8 RDW Coeff of Driss 13.7 Plt Count 155 MPV 10.4 Immature Gran % (Auto) 0.2 Neut % (Auto) 75.9 Lymph % (Auto) 13.0 Mckinley % (Auto) 8.7 Eos % (Auto) 2.0 Baso % (Auto) 0.2 Neut # (Auto) 7.79 H Lymph # (Auto) 1.33 Mckinley # (Auto) 0.89 H Eos # (Auto) 0.21 Baso # (Auto) 0.02 Immature Gran # (Auto) 0.02 Sodium Potassium Chloride Carbon Dioxide Anion Gap BUN Creatinine Est Cr Clr Drug Dosing Est GFR ( Amer) Est GFR (Non-Af Amer) BUN/Creatinine Ratio Glucose POC Glucose 96 81 Calcium 09/29/20 09/30/20 09/30/20 19:47 00:11 05:37 WBC RBC Hgb Hct MCV MCH MCHC RDW Std Deviation RDW Coeff of Driss Plt Count MPV Immature Gran % (Auto) Neut % (Auto) Lymph % (Auto) Mckinley % (Auto) Eos % (Auto) Baso % (Auto) Neut # (Auto) Lymph # (Auto) Mckinley # (Auto) Eos # (Auto) Baso # (Auto) Immature Gran # (Auto) Sodium 137 Potassium 3.5 D Chloride 105 Carbon Dioxide 30 Anion Gap 2.0 L BUN 15 Creatinine 0.69 Est Cr Clr Drug Dosing 77.2 Est GFR ( Amer) 102.5 Est GFR (Non-Af Amer) 88.4 BUN/Creatinine Ratio 22.4 H Glucose 126 H POC Glucose 95 127 H Calcium 8.2 L 09/30/20 05:58 WBC RBC Hgb Hct MCV MCH MCHC RDW Std Deviation RDW Coeff of Driss Plt Count MPV Immature Gran % (Auto) Neut % (Auto) Lymph % (Auto) Mckinley % (Auto) Eos % (Auto) Baso % (Auto) Neut # (Auto) Lymph # (Auto) Mckinley # (Auto) Eos # (Auto) Baso # (Auto) Immature Gran # (Auto) Sodium Potassium Chloride Carbon Dioxide Anion Gap BUN Creatinine Est Cr Clr Drug Dosing Est GFR ( Amer) Est GFR (Non-Af Amer) BUN/Creatinine Ratio Glucose POC Glucose 110 H Calcium Medications Administered Current Inpatient Medications Acetaminophen (Acetaminophen 325 Mg Tab) 650 mg PO Q4H PRN PRN Reason: Pain or Fever Stop: 10/25/20 16:30 Artificial Tears (Artificial Tears) 1 drops OP TID [facility] Stop: 10/25/20 20:59 Last Admin: 09/30/20 07:55 Dose: 1 drops Documented by: Enteral Nutritional Formula (Fibersource Hn 1.2 Blas 1000 Ml Bag) 10 ml PO CONT NIDA; Protocol Stop: 10/28/20 19:44 Last Admin: 09/30/20 05:12 Dose: 60 ml Documented by: Heparin Sodium (Porcine) (Heparin Sod 5,000 Unit/0.5 Ml Vial) 5,000 units SQ Q12 [facility] Stop: 10/25/20 20:59 Last Admin: 09/30/20 08:49 Dose: 5,000 units Documented by: Thiamine HCl 100 mg/ Syringe 10 mls @ 2 mls/min IV QAM [facility] Stop: 10/27/20 08:59 Last Admin: 09/30/20 08:48 Dose: 2 mls/min Documented by: Folic Acid 1 mg/ Syringe 10 mls @ 5 mls/min IV QAM [facility] Stop: 10/27/20 08:59 Last Admin: 09/30/20 08:48 Dose: 5 mls/min Documented by: Pantoprazole Sodium 40 mg/ (Syringe) 10 mls @ 5 mls/min IV BID [facility] Stop: 10/28/20 09:59 Last Admin: 09/30/20 08:48 Dose: 5 mls/min Documented by: Nitroglycerin (Nitroglycerin Sl 0.4 Mg/Tab Tab) 0.4 mg SL UD PRN PRN Reason: Chest Pain Stop: 10/25/20 16:30 Ondansetron HCl (Ondansetron Inj 2 Mg/Ml 2 Ml Vial) 4 mg IV Q6H PRN PRN Reason: Nausea Stop: 10/25/20 16:30 Sterile Water (Tube Feeding Water Flush) 150 ml GT Q4H [facility] Stop: 10/28/20 19:44 Last Admin: 09/30/20 07:53 Dose: 150 ml Documented by: PG Care Time/CCT Total # of Minutes Spent Total Time Spent with Patient: Total time spent is greater than 50% in coordin ation of care (as documented) at patient's floor/unit and/or counseling patient: Coding Level of Care Code 81611 Subseq Hosp Care Lvl 2 Diagnoses Dysphagia R13.10 Severe protein-calorie malnutrition E43 Leukocytosis D72.829 Elevated troponin I level R77.8 TESSA (acute kidney injury) N17.9 S/P TAVR (transcatheter aortic valve replacement) Z95.2 Hypertension I10 Elevated cholesterol E78.00 BPH (benign prostatic hyperplasia) N40.0 Old 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
[2020-10-01] MEDS: TUBE FEEDING WATER FLUSH GT SCH (00:15)
--- NOTE | 2020-10-01 08:26 | XRay Report ---
XR chest 1V portable HISTORY: aspiration COMPARISON: Chest 09/29/2020. FINDINGS: The lungs are clear. The heart is normal in size. A cardiac valve stent is again noted. No pleural fusions. No pneumothorax. Degenerative changes again noted within the right shoulder. IMPRESSION: No acute process. ACT 112: Negative or not required by law. Electronically signed by: Nixon Wolfe M.D. 10/01/2020 8:25 AM
--- NOTE | 2020-10-01 09:02 | History & Physical Bridge Note ---
Date of Service October 01, 2020 History & Physical Bridge Note I have examined the patient, reviewed the History & Physical and in the interval since the performance of the History & Physical I have noted the following changes of clinical significance: NG came out last evening. He remains NPO post midnight. Agreeable to proceed with PEG placement today. Heparin has been held. PE:A&Ox3. RRR. Lungs CTA bilaterally. Abdomen soft, nontender. Normal bowel sounds. A/P: Dysphagia with feeding difficulty. * NPO for now. * EGD with PEG placement today with Dr. Huston. * Pre-op Ancef 2 g IV 1 hour prior to procedure. * Will need PEG care education and nutrition consult for management of tube feeds post procedure.
[2020-10-01] MEDS: PANTOprazole 40 MG in SYRINGE 0 ML IV SCH ×2 (09:08→20:46)
[2020-10-01] MEDS: THIAMINE HCL 100 MG in SYRINGE 9 ML IV SCH (09:08)
[2020-10-01] MEDS: FOLIC ACID 1 MG in SYRINGE 9.8 ML IV SCH (09:08)
[2020-10-01] MEDS: ARTIFICIAL TEARS OP SCH ×3 (09:08→20:46)
--- NOTE | 2020-10-01 09:56 | Anesthesiology Consultation ---
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 Huston With Gastric Tube Placement - Giuseppe Huston MD Height/Weight Height: 5 ft 7 in Weight: 78.9 kg Allergies Allergy/AdvReac Type Severity Reaction Status Date / Time metoprolol AdvReac Severe Fingers Verified 09/27/20 13:10 turned Blue/ Poor Circulation Medications Home Medications Medication Instructions Recorded Confirmed Last Taken cholecalciferol (vitamin D3) 50 50 mcg PO QAM #100 cap 09/28/18 09/25/20 09/24/20 mcg (2,000 unit) capsule carboxymethyl 0.5 %-glycerin 1 1 drp OPHTHALMIC (EYE) TID 04/01/20 09/25/20 09/25/20 %-polysorb 80 0.5 %-PF eye dropperette (Refresh Optive Evaristo-3 (PF)) lubricants topical gel 1 ea TOPICAL HS 04/01/20 09/25/20 09/24/20 aspirin 81 mg tablet,delayed 81 mg PO QAM 07/12/20 09/25/20 09/24/20 release lisinopril 5 mg tablet 5 mg PO QAM #90 tab 09/19/20 09/25/20 09/24/20 atorvastatin 40 mg tablet (Lipitor) 40 mg PO HS 09/25/20 09/25/20 09/24/20 tamsulosin 0.4 mg capsule 0.4 mg PO HS 09/25/20 09/25/20 09/24/20 Active Medications Generic Name Dose Route Start Last Admin Trade Name Freq PRN Reason Stop Dose Admin Artificial Tears 1 drops 09/25/20 21:00 10/01/20 09:08 Artificial Tears OP 10/25/20 20:59 1 drops TID NIDA Administration Enteral Nutritional Formula 10 ml 09/28/20 19:45 09/30/20 17:26 Fibersource Hn 1.2 Blas 1000 Ml Bag PO 10/28/20 19:44 60 ml CONT NIDA Administration Protocol Thiamine HCl 100 mg/ Syringe 10 mls @ 2 mls/min 09/27/20 09:00 10/01/20 09:08 IV 10/27/20 08:59 2 mls/min QAM NIDA Administration Folic Acid 1 mg/ Syringe 10 mls @ 5 mls/min 09/27/20 09:00 10/01/20 09:08 IV 10/27/20 08:59 5 mls/min QAM NIDA Administration Pantoprazole Sodium 40 mg/ 10 mls @ 5 mls/min 09/28/20 10:00 10/01/20 09:08 Syringe IV 10/28/20 09:59 5 mls/min BID NIDA Administration Sterile Water 150 ml 09/28/20 19:45 10/01/20 00:15 Tube Feeding Water Flush GT 10/28/20 19:44 150 ml Q4H NIDA Administration NPO Date Last Intake of Fluids: 09/30/20 Time Last Intake of Fluids: 23:59 Last Intake of Fluids Comment: Ice chip Date Last Intake of Solids: 09/30/20 Time Last Intake of Solids: 23:59 Last Intake of Solids Comment: Per patient 1 month ago at [facility] Past Medical History Medical History Aortic stenosis Resolved with TAVR. Aortic stenosis, severe BPH (benign prostatic hyperplasia) Cognitive decline Hypertension Obesity Osteoarthritis Past Family History Family History Father Myocardial infarction Cardiac disorder Brother Myocardial infarction Cardiac disorder Hypertension FHx: deafness or hearing loss Sister Hypertension Cardiac disorder Denies family history of Ovarian cancer Prostate cancer Breast cancer Bleeding disorder Colorectal cancer Past Surgical History Surgical History History of cataract surgery R/L > subsequent laser surgery on eyes Social History Smoking Status: Never smoker Do You Dip or Chew Tobacco: No Hx Alcohol Use: No Hx Substance Use: No substance use type: does not use Physical Exam Vital Signs Last Vital Signs Temp 36.5 C 10/01/20 09:11 Pulse 76 10/01/20 09:11 Resp 16 10/01/20 09:11 BP 137/80 10/01/20 09:11 Pulse Ox 93 10/01/20 09:11 Testing Laboratory Results 09/29/20 17:25 09/30/20 05:37 Urine Color Yellow 09/25/20 12:38 Urine Appearance Clear (Clear) 09/25/20 12:38 Urine pH 5.5 (4.5-7.5) 09/25/20 12:38 Ur Specific [place] 1.022 (1.000-1.030) 09/25/20 12:38 Urine Protein Trace (Negative) H 09/25/20 12:38 Urine Glucose (UA) Negative (Negative) 09/25/20 12:38 Urine Ketones 2+ (Negative) H 09/25/20 12:38 Urine Nitrite Negative (Negative) 09/25/20 12:38 Ur Leukocyte Esterase 2+ (Negative) H 09/25/20 12:38 Urine WBC (Auto) >30 /hpf (0-5) H 09/25/20 12:38 Urine RBC (Auto) 0-4 /hpf (0-4) 09/25/20 12:38 U Hyaline Cast (Auto) 1-5 /lpf (0-5) 09/25/20 12:38 U Epithel Cells (Auto) 20-30 /lpf (0-5) H 09/25/20 12:38 Urine Bacteria (Auto) Negative (Negative) 09/25/20 12:38 09/25/20 11:31 Aerobic Blood Culture - Final Blood No growth in Aerobic bottle after 5 days. Anaerobic Blood Culture - Final No growth in Anaerobic bottle after 5 days. 09/25/20 11:45 Aerobic Blood Culture - Final Blood No growth in Aerobic bottle after 5 days. Anaerobic Blood Culture - Final No growth in Anaerobic bottle after 5 days. 09/25/20 12:38 Urine Culture - Final Urine,Clean Catch More than three types of organisms present, all high counts mixed probable skin jordana - No further identifications or sensitivities to follow. 10/01/20 00:01 POC Glucose 123 H Electrocardiogram Date: 09/27/20 Test Reason : Blood Pressure : / mmHG Vent. Rate : 099 BPM Atrial Rate : 099 BPM P-R Int : 138 ms QRS Dur : 088 ms QT Int : 318 ms P-R-T Axes : 015 028 -49 degrees QTc Int : 408 ms Normal sinus rhythm with sinus arrhythmia Nonspecific ST abnormality When compared with ECG of 26-SEP-2020 06:47, Non-specific change in ST segment in Inferior leads Confirmed by Prosper Downey ([id number]) on 09/27/2020 5:41:07 PM Chest X-Ray Date: 10/01/20 XR chest 1V portable HISTORY: aspiration COMPARISON: Chest 09/29/2020. FINDINGS: The lungs are clear. The heart is normal in size. A cardiac valve stent is again noted. No pleural fusions. No pneumothorax. Degenerative changes again noted within the right shoulder. IMPRESSION: No acute process. Echocardiogram Date: 09/25/20 EF: 60-65% Bioprosthetic aortic valve
[2020-10-01] MEDS ORDERED: ceFAZolin 2000MG 2,000 MG/15 ML SYR IV ONE (11:00)
--- NOTE | 2020-10-01 12:13 | Hospitalist Progress Note ---
Date of Service October 01, 2020 Assessment & Plan (1) Dysphagia: Plan: - Symptoms for ~2 months onset [place]1 [place] [facility] [place] No old stroke seen on MRI brain during admission that was obtained that would account for swallowing dysfunction (old R cerebellar lacune only). -No mass or obstruction/stricture seen on EGD. Follow-up CT with contrast did not show any lesions in the neck/upper chest like to contribute to his dysfunction -Patient also reports a hoarse voice for the last month or 2, differential includes nerve injury Patient unable to swallow safely, multiple reports of extreme coughing at home even with thick liquids such as applesauce Core safe placed. Feeds started with fiber source HN, goal rate 60 cc/h with 150 cc free water flush every 4 hours. tolerating well GI is consulted, plan for PEG today resume tube feeds once PEG in place, work on rehab for tomorrow (2) Severe protein-calorie malnutrition: Plan: Severe weight loss (14kg) since his TAVR. Enteral nutrition as noted in dysphagia goal of 60cc/hr, will transition to PEG feedings today after placement (3) Leukocytosis: Plan: -No leukocytosis 09/29, repeat chest x-ray without interval pneumonia -procal negative. -no infectious symptoms. -COVID negative. -urine cx and blood cx's ngtd - Follow clinically, on room air, continue to monitor for aspiration events with depression precautions (4) Elevated troponin I level: Plan: - Myocardial demand ischemia in setting of dehydration, TESSA, etc. - No true ACS. 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 (5) TESSA (acute kidney injury): Plan: - 2nd volume depletion due to inability to take proper nutrition & hydration. - Peak Cr 1.5. - Normalized - Nutrition as noted - BMP daily - continue to hold [place]. (6) S/P TAVR (transcatheter aortic valve replacement): Plan: -June 2020 at [facility] [place] (7) Hypertension: Plan: Patient hypotensive with poor intake, improved with fluid bolus - normotensive today (8) Elevated cholesterol: Plan: Hold statin. (9) BPH (benign prostatic hyperplasia): Plan: Hold flomax. (10) Old lacunar stroke without late effect: Plan: - on MRI brain - old, small, right-sided cerebellar lacunar stroke. -age-indeterminate but not related to presenting issues. - when allowed to take PO should resume asa with statin. (11) Elevated AST (SGOT): Plan: - Mild elevation - Trend (12) Lung nodule < 6cm on CT: Plan: Solitary 4 mm groundglass lung nodule appreciated on CT, does not meet criteria for follow-up although entire lung gannon incompletely visualized. Consider CTchest f/u Plan: PEG today, try for rehab on Wednesday unsure how long the dysphagia will last Admission and Anticipated Discharge Date Admission Date: September 25, 2020 Subjective patient is pleasant, no distress, NG tube has been removed he is using suction periodically for secretions plan for PEG today no chest pain, no dyspnea, no abdominal pain, no nausea/vomiting discussed resuming tube feeds and looking for rehab, he agrees Review of Systems Review of Systems: All systems reviewed & are unremarkable except as noted in Subjective Respiratory: + cough Gastrointestinal: + dysphagia Physical Exam Constitutional: well developed, + thin and comfortable; no acute distress Neck: trachea midline, no thyromegaly Respiratory: normal respiratory effort, lungs clear to auscultation Cardiovascular: RRR, no murmur, no edema Gastrointestinal (Abdomen): normal bowel sounds, soft, nontender, no hepatosplenomegaly Musculoskeletal: no cyanosis or clubbing, extremities motor strength 5/5 Skin: no rashes, warm and dry Neurologic: normal touch/pain/proprioception, moves all extremities and awake; + CN's not intact (cannot swallow safely) and no focal motor deficits Psychiatric: A+Ox3, euthymic affect Results & Data Results & Data ([facility]) Vital Signs (Past 12 Hours) Vital Signs Temp Pulse Pulse Resp BP Pulse Ox 10/01/20 11:30 36.3 C L 77 22 122/84 94 10/01/20 09:11 36.5 C 76 16 137/80 93 Laboratory Results Laboratory Results - last 24 hr 09/30/20 10/01/20 17:40 00:01 POC Glucose 105 H 123 H Medications Administered Current Inpatient Medications Acetaminophen (Acetaminophen 325 Mg Tab) 650 mg PO Q4H PRN PRN Reason: Pain or Fever Stop: 10/25/20 16:30 Artificial Tears (Artificial Tears) 1 drops OP TID NIDA Stop: 10/25/20 20:59 Last Admin: 10/01/20 09:08 Dose: 1 drops Documented by: Enteral Nutritional Formula (Fibersource Hn 1.2 Blas 1000 Ml Bag) 10 ml PO CONT NIDA; Protocol Stop: 10/28/20 19:44 Last Admin: 09/30/20 17:26 Dose: 60 ml Documented by: Thiamine HCl 100 mg/ Syringe 10 mls @ 2 mls/min IV QAM [facility] Stop: 10/27/20 08:59 Last Admin: 10/01/20 09:08 Dose: 2 mls/min Documented by: Folic Acid 1 mg/ Syringe 10 mls @ 5 mls/min IV QAM [facility] Stop: 10/27/20 08:59 Last Admin: 10/01/20 09:08 Dose: 5 mls/min Documented by: Pantoprazole Sodium 40 mg/ (Syringe) 10 mls @ 5 mls/min IV BID [facility] Stop: 10/28/20 09:59 Last Admin: 10/01/20 09:08 Dose: 5 mls/min Documented by: Nitroglycerin (Nitroglycerin Sl 0.4 Mg/Tab Tab) 0.4 mg SL UD PRN PRN Reason: Chest Pain Stop: 10/25/20 16:30 Ondansetron HCl (Ondansetron Inj 2 Mg/Ml 2 Ml Vial) 4 mg IV Q6H PRN PRN Reason: Nausea Stop: 10/25/20 16:30 Sterile Water (Tube Feeding Water Flush) 150 ml GT Q4H [facility] Stop: 10/28/20 19:44 Last Admin: 10/01/20 00:15 Dose: 150 ml Documented by: PG Care Time/CCT Total # of Minutes Spent Total Time Spent with Patient: Total time spent is greater than 50% in coordination of care (as documented) at patient's floor/unit and/or counseling patient: Coding Level of Care Code 66421 Subseq Hosp Care Lvl 2 Diagnoses Dysphagia R13.10 Severe protein-calorie malnutrition E43 Leukocytosis D72.829 Elevated troponin I level R77.8 TESSA (acute kidney injury) N17.9 S/P TAVR (transcatheter aortic valve replacement) Z95.2 Hypertension I10 Elevated cholesterol E78.00 BPH (benign prostatic hyperplasia) N40.0 Old 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
--- NOTE | 2020-10-01 12:47 | GI REPORT ---
Patient Name: Henrique Ellis Procedure Date: 10/01/2020 11:52 AM Date of : 1940 Admit Type: Inpatient Age: 80 Gender: Male Attending MD: Giuseppe Huston MD Procedure: Upper GI endoscopy Providers: Giuseppe Huston MD, assisted by Megan Pizano Referring MD: Bob Steinberg Indications: Dysphagia Medicines: Monitored Anesthesia Care Complications: No immediate complications. Estimated blood loss: None. Estimated Blood Loss: Estimated blood loss: none. Procedure: Pre-Anesthesia Assessment: - Prior Anticoagulants: The patient has taken heparin, last dose was 1 day prior to procedure. - ASA Grade Assessment: II - A patient with mild systemic disease. - Prophylactic Antibiotics: The patient requires prophylactic antibiotics for planned PEG placement. The patient received antibiotic therapy today, before the procedure started. After obtaining informed consent, the endoscope was passed under direct vision. Throughout the procedure, the patient's blood pressure, pulse, and oxygen saturations were monitored continuously. The Endoscope was introduced through the mouth, and advanced to the second part of duodenum. The upper GI endoscopy was accomplished without difficulty. The patient tolerated the procedure well. Findings: The examined esophagus was normal. The entire examined stomach was normal. The patient was placed in the supine position for PEG placement. The stomach was insufflated to appose gastric and abdominal mishra. A site was located in the body of the stomach with excellent transillumination for placement. The abdominal wall was marked and prepped in a sterile manner. The area was anesthetized with 2 mL of 0.5% lidocaine. The trocar needle was introduced through the abdominal wall and into the stomach under direct endoscopic view. A snare was introduced through the endoscope and opened in the gastric lumen. The guide wire was passed through the trocar and into the open snare. The snare was closed around the guide wire. The endoscope and snare were removed, pulling the wire out through the mouth. A skin incision was made at the site of needle insertion. The endoscopically removable 20 Fr Manoj-Cook gastrostomy tube was lubricated. The G-tube was tied to the guide wire and pulled through the mouth and into the stomach. The trocar needle was removed, and the gastrostomy tube was pulled out from the stomach through the skin. The external bumper was attached to the gastrostomy tube, and the tube was cut to remove the guide wire. The final position of the gastrostomy tube was confirmed by relook endoscopy, and skin marking noted to be 4 cm at the external bumper. The final tension and compression of the abdominal wall by the PEG tube and external bumper were checked and revealed that the bumper was moderately tight and mildly deforming the skin and that the PEG balloon was loose and lightly touching the stomach. The feeding tube was capped, and the tube site cleaned and dressed. Estimated blood loss: none. Localized mildly erythematous mucosa without active bleeding and with no stigmata of bleeding was found in the duodenal bulb and in the second portion of the duodenum. Impression: - Normal esophagus. - Normal stomach. - Erythematous duodenopathy. - An endoscopically removable PEG placement was successfully completed. - No specimens collected. Recommendation: - [facility]. - Please follow the post-PEG recommendations including: NPO x4 hrs then water today, may use PEG today for meds and water, may use PEG tomorrow for feedings and clean site with soap and water daily and dry thoroughly. Giuseppe Huston MD 10/01/2020 12:46:34 PM This report has been signed electronically. Note Initiated On: 10/01/2020 11:52 AM Number of Addenda: 0 I attest to the content of the Intraoperative Record and orders documented therein, exceptions below {[id number]}
--- NOTE | 2020-10-01 13:08 | Anesthesiology Progress Note ---
Date of Service October 01, 2020 Anesthesia Post Procedure Vital Signs Vital Signs: Temp Pulse Pulse Pulse Resp BP BP 10/01/20 13:00 89 18 108/73 10/01/20 12:45 105 H 18 126/89 10/01/20 11:30 36.3 C L 77 22 122/84 10/01/20 09:11 36.5 C 76 16 137/80 09/30/20 22:28 36.9 C 67 18 119/73 09/30/20 15:50 36.7 C 75 20 127/76 Pulse Ox 10/01/20 13:00 94 10/01/20 12:45 93 10/01/20 11:30 94 10/01/20 09:11 93 09/30/20 22:28 94 09/30/20 15:50 97 Pain Intensity Generalized: Pain Intensity: 0 Transfer of Care Handoff Completed per policy Notes Mental Status: alert / awake / arousable and participated in evaluation Patient Amnestic to Procedure: Yes Nausea / Vomiting: adequately controlled Pain: adequately controlled Airway Patency, RR, SpO2: stable & adequate BP & HR: stable & adequate Hydration State: stable & adequate Anesthetic Complications: no major complications apparent and Pt Satisfied with anesthetic care
[2020-10-02] MEDS: ARTIFICIAL TEARS OP SCH ×3 (09:38→21:43)
[2020-10-02] MEDS: FIBERSOURCE HN 1.2 CAL 1000 ML BAG PO SCH ×2 (09:54→18:11)
[2020-10-02] MEDS: FOLIC ACID 1 MG in SYRINGE 9.8 ML IV SCH (09:55)
[2020-10-02] MEDS: TUBE FEEDING WATER FLUSH GT SCH ×4 (09:55→21:44)
[2020-10-02] MEDS: THIAMINE HCL 100 MG in SYRINGE 9 ML IV SCH (09:55)
[2020-10-02] MEDS: PANTOprazole 40 MG in SYRINGE 0 ML IV SCH (10:28)
--- NOTE | 2020-10-02 11:43 | Hospitalist Progress Note ---
Date of Service October 02, 2020 Assessment & Plan (1) Dysphagia: Plan: - Symptoms for ~2 months onset ~1 months after TAVR at [facility] [place] - No old stroke seen on MRI brain during admission that was obtained that would account for swallowing dysfunction (old R cerebellar lacune only). -No mass or obstruction/stricture seen on EGD. Follow-up CT with contrast did not show any lesions in the neck/upper chest like to contribute to his dysfunction -Patient also reports a hoarse voice for the last month or 2, differential includes nerve injury Patient unable to swallow safely, multiple reports of extreme coughing at home even with thick liquids such as applesauce PEG tube placed 10/01 Feeds started with fiber source HN, goal rate 60 cc/h with 150 cc free water flush every 4 hours. tolerating well could consider bolus feedings after a short while once we know he tolerates feeding (2) Severe protein-calorie malnutrition: Plan: Severe weight loss (14kg) since his TAVR. Enteral nutrition as noted in dysphagia goal of 60cc/hr via PEG could do bolus feedings after a few days/week if he is tolerating continuous feedings (3) Leukocytosis: Plan: -No leukocytosis 09/29, repeat chest x-ray without interval pneumonia -procal negative. -no infectious symptoms. -COVID negative. -urine cx and blood cx's ngtd - Follow clinically, on room air, continue to monitor for aspiration events with depression precautions (4) Elevated troponin I level: Plan: - Myocardial demand ischemia in setting of dehydration, TESSA, etc. - No true ACS. 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 (5) TESSA (acute kidney injury): Plan: - 2nd volume depletion due to inability to take proper nutrition & hydration. - Peak Cr 1.5. - Normalized - Nutrition as noted holding [place] as BP normal (6) S/P TAVR (transcatheter aortic valve replacement): Plan: -June 2020 at [facility] [place]. (7) Hypertension: Plan: Patient hypotensive with poor intake, improved with fluid bolus - normotensive today, holding [place] indefinitely (8) Elevated cholesterol: Plan: Hold statin. (9) BPH (benign prostatic hyperplasia): Plan: Hold flomax. (10) Old lacunar stroke without late effect: Plan: - on MRI brain - old, small, right-sided cerebellar lacunar stroke. -age-indeterminate but not related to presenting issues. - resume aspirin and statin via PEG (11) Elevated AST (SGOT): Plan: - Mild elevation - Trend (12) Lung nodule < 6cm on CT: Plan: Solitary 4 mm groundglass lung nodule appreciated on CT, does not meet criteria for follow-up although entire lung gannon incompletely visualized. Consider CTchest f/u Plan: PEG 10/01, tube feeds, plan for rehab tomorrow if approved, accepted Admission and Anticipated Discharge Date Admission Date: September 25, 2020 Subjective patient tolerated PEG tube yesterday, mild pain today after bandage removed breathing well, no cough, no chest pain, no fever/chills tube feeds resumed, 10mL/hr right now, advance 20mL every 8 hours, will be at goal tomorrow could consider bolus feedings once he is known to tolerate the feeds d/w CM, try for [facility] tomorrow Review of Systems Review of Systems: All systems reviewed & are unremarkable except as noted in Subjective Physical Exam Constitutional: well developed, + thin and comfortable; no acute distress Neck: trachea midline, no thyromegaly Respiratory: normal respiratory effort, lungs clear to auscultation Cardiovascular: RRR, no murmur, no edema Gastrointestinal (Abdomen): normal bowel sounds, soft, nontender, no hepatosplenomegaly (PEG tube in place) Musculoskeletal: no cyanosis or clubbing, extremities motor strength 5/5 Skin: no rashes, warm and dry Neurologic: normal touch/pain/proprioception, moves all extremities and awake; + CN's not intact (cannot swallow safely) and no focal motor deficits Psychiatric: A+Ox3, euthymic affect Results & Data Results & Data ([facility]) Vital Signs (Past 12 Hours) Vital Signs Temp Pulse Resp BP Pulse Ox 10/02/20 07:28 36.6 C 98 H 20 118/69 94 Medications Administered Current Inpatient Medications Acetaminophen (Acetaminophen 325 Mg Tab) 650 mg PO Q4H PRN PRN Reason: Pain or Fever Stop: 10/25/20 16:30 Artificial Tears (Artificial Tears) 1 drops OP TID NIDA Stop: 10/25/20 20:59 Last Admin: 10/02/20 09:38 Dose: 1 drops Documented by: Enteral Nutritional Formula (Fibersource Hn 1.2 Blas 1000 Ml Bag) 10 ml PO CONT [facility]; Protocol Stop: 11/01/20 09:59 Last Admin: 10/02/20 09:54 Dose: 10 ml Documented by: Thiamine HCl 100 mg/ Syringe 10 mls @ 2 mls/min IV QAM [facility] Stop: 10/27/20 08:59 Last Admin: 10/02/20 09:55 Dose: 2 mls/min Documented by: Folic Acid 1 mg/ Syringe 10 mls @ 5 mls/min IV QAM [facility] Stop: 10/27/20 08:59 Last Admin: 10/02/20 09:55 Dose: 5 mls/min Documented by: Pantoprazole Sodium 40 mg/ (Syringe) 10 mls @ 5 mls/min IV BID [facility] Stop: 10/28/20 09:59 Last Admin: 10/02/20 10:28 Dose: 5 mls/min Documented by: Nitroglycerin (Nitroglycerin Sl 0.4 Mg/Tab Tab) 0.4 mg SL UD PRN PRN Reason: Chest Pain Stop: 10/25/20 16:30 Ondansetron HCl (Ondansetron Inj 2 Mg/Ml 2 Ml Vial) 4 mg IV Q6H PRN PRN Reason: Nausea Stop: 10/25/20 16:30 Sterile Water (Tube Feeding Water Flush) 150 ml GT Q4H [facility] Stop: 11/01/20 09:59 Last Admin: 10/02/20 09:55 Dose: 150 ml Documented by: PG Care Time/CCT Total # of Minutes Spent Total Time Spent with Patient: Total time spent is greater than 50% in coordination of care (as documented) at patient's floor/unit and/or counseling patient: Coding Level of Care Code 01844 Subseq Hosp Care Lvl 2 Diagnoses Dysphagia R13.10 Severe protein-calorie malnutrition E43 Leukocytosis D72.829 Elevated troponin I level R77.8 TESSA (acute kidney injury) N17.9 S/P TAVR (transcatheter aortic valve replacement) Z95.2 Hypertension I10 Elevated cholesterol E78.00 BPH (benign prostatic hyperplasia) N40.0 Old 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
[2020-10-02] MEDS ORDERED: DEXTROSE 50% 50 ML SYRINGE IV STA ×2 (18:19→18:43)
[2020-10-02] MEDS ORDERED: DEXTROSE 5% 1,000 ML IV SCH (18:30)
[2020-10-03] MEDS: TUBE FEEDING WATER FLUSH GT SCH ×6 (02:04→22:16)
[2020-10-03] MEDS: FIBERSOURCE HN 1.2 CAL 1000 ML BAG PO SCH ×2 (02:18→09:58)
[2020-10-03] MEDS: ARTIFICIAL TEARS OP SCH ×3 (08:57→21:21)
[2020-10-03] MEDS: ASPIRIN 81 MG ECTAB PO SCH (08:58)
[2020-10-03] MEDS: FOLIC ACID 1 MG TAB PEG SCH (08:58)
[2020-10-03] MEDS: THIAMINE HCL 100 MG TAB PEG SCH (08:58)
[2020-10-03] MEDS: ATORVASTATIN 40 MG TAB PEG SCH (08:58)
--- NOTE | 2020-10-03 23:45 | Hospitalist Progress Note ---
Date of Service October 03, 2020 Assessment & Plan (1) Dysphagia: Plan: - Symptoms for ~2 months onset ~1 months after TAVR at [facility] [place] - No old stroke seen on MRI brain during admission that was obtained that would account for swallowing dysfunction (old R cerebellar lacune only). -No mass or obstruction/stricture seen on EGD. Follow-up CT with contrast did not show any lesions in the neck/upper chest like to contribute to his dysfunction -Patient also reports a hoarse voice for the last month or 2, differential includes nerve injury Patient unable to swallow safely, multiple reports of extreme coughing at home even with thick liquids such as applesauce PEG tube placed 10/01 Feeds started with fiber source HN, goal rate 60 cc/h with 150 cc free water flush every 4 hours. tolerating well could consider bolus feedings, check with behavioral assistant about what that recommendation would be (2) Severe protein-calorie malnutrition: Plan: Severe weight loss (14kg) since his TAVR. Enteral nutrition as noted in dysphagia goal of 60cc/hr via PEG could do bolus feedings after a few days/week if he is tolerating continuous feedings (3) Leukocytosis: Plan: -No leukocytosis 09/29, repeat chest x-ray without interval pneumonia -procal negative. -no infectious symptoms. -COVID negative. -urine cx and blood cx's ngtd - Follow clinically, on room air, continue to monitor for aspiration events with depression precautions (4) Elevated troponin I level: Plan: - Myocardial demand ischemia in setting of dehydration, TESSA, etc. - No true ACS. 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 (5) ETSSA (acute kidney injury): Plan: - 2nd volume depletion due to inability to take proper nutrition & hydration. - Peak Cr 1.5. - Normalized - Nutrition as noted holding [place] as BP normal (6) S/P TAVR (transcatheter aortic valve replacement): Plan: -June 2020 at [facility] [place]. (7) Hypertension: Plan: Patient hypotensive with poor intake, improved with fluid bolus - normotensive today, holding [place] indefinitely (8) Elevated cholesterol: Plan: Hold statin. (9) BPH (benign prostatic hyperplasia): Plan: Hold flomax. (10) Old lacunar stroke without late effect: Plan: - on MRI brain - old, small, right-sided cerebellar lacunar stroke. -age-indeterminate but not related to presenting issues. - resume aspirin and statin via PEG (11) Elevated AST (SGOT): Plan: - Mild elevation - Trend (12) Lung nodule < 6cm on CT: Plan: Solitary 4 mm groundglass lung nodule appreciated on CT, does not meet criteria for follow-up although entire lung gannon incompletely visualized. Consider CTchest f/u Plan: PEG 10/01, tube feeds, plan for rehab tomorrow if approved, accepted Admission and Anticipated Discharge Date Admission Date: September 25, 2020 Subjective patient doing well, participating in therapy tolerating tube feeds at goal of 60mL/hr awaiting [facility] placement Review of Systems Review of Systems: All systems reviewed & are unremarkable except as noted in Subjective Physical Exam Constitutional: well developed, + thin and comfortable; no acute distress Neck: trachea midline, no thyromegaly Respiratory: normal respiratory effort, lungs clear to auscultation Cardiovascular: RRR, no murmur, no edema Gastrointestinal (Abdomen): normal bowel sounds, soft, nontender, no hepatosplenomegaly (PEG tube in place) Musculoskeletal: no cyanosis or clubbing, extremities motor strength 5/5 Skin: no rashes, warm and dry Neurologic: normal touch/pain/proprioception, moves all extremities and awake; + CN's not intact (cannot swallow safely) and no focal motor deficits Psychiatric: A+Ox3, euthymic affect Results & Data Results & Data ([facility]) Vital Signs (Past 12 Hours) Vital Signs Temp Pulse Resp BP Pulse Ox 10/03/20 16:39 36.7 C 72 18 110/71 93 Laboratory Results Laboratory Results - last 24 hr 10/02/20 10/03/20 10/03/20 23:45 05:56 11:59 POC Glucose 116 H 145 H 133 H 10/03/20 18:17 POC Glucose 108 H Medications Administered Current Inpatient Medications Acetaminophen (Acetaminophen 325 Mg Tab) 650 mg PO Q4H PRN PRN Reason: Pain or Fever Stop: 10/25/20 16:30 Artificial Tears (Artificial Tears) 1 drops OP TID NIDA Stop: 10/25/20 20:59 Last Admin: 10/03/20 21:21 Dose: 1 drops Documented by: Aspirin (Aspirin 81 Mg Ectab) 81 mg PO QAM [facility] Stop: 11/02/20 08:59 Last Admin: 10/03/20 08:58 Dose: Not Given Documented by: Atorvastatin Calcium (Atorvastatin 40 Mg Tab) 40 mg PEG QAM [facility] Stop: 11/02/20 08:59 Last Admin: 10/03/20 08:58 Dose: 40 mg Documented by: Enteral Nutritional Formula (Fibersource Hn 1.2 Blas 1000 Ml Bag) 10 ml PO CONT [facility]; Protocol Stop: 11/01/20 09:59 Last Admin: 10/03/20 09:58 Dose: 60 ml Documented by: Folic Acid (Folic Acid 1 Mg Tab) 1 mg PEG QAM [facility] Stop: 11/02/20 08:59 Last Admin: 10/03/20 08:58 Dose: 1 mg Documented by: Nitroglycerin (Nitroglycerin Sl 0.4 Mg/Tab Tab) 0.4 mg SL UD PRN PRN Reason: Chest Pain Stop: 10/25/20 16:30 Ondansetron HCl (Ondansetron Inj 2 Mg/Ml 2 Ml Vial) 4 mg IV Q6H PRN PRN Reason: Nausea Stop: 10/25/20 16:30 Sterile Water (Tube Feeding Water Flush) 150 ml GT Q4H [facility] Stop: 11/01/20 09:59 Last Admin: 10/03/20 22:16 Dose: 150 ml Documented by: Thiamine HCl (Thiamine Hcl 100 Mg Tab) 100 mg PEG QAM [facility] Stop: 11/02/20 08:59 Last Admin: 10/03/20 08:58 Dose: 100 mg Documented by: PG Care Time/CCT Total # of Minutes Spent Total Time Spent with Patient: Total time spent is greater than 50% in coordination of care (as documented) at patient's floor/unit and/or counseling patient: Coding Level of Care Code 35237 Subseq Hosp Care Lvl 1 Diagnoses Dysphagia R13.10 Severe protein-calorie malnutrition E43 Leukocytosis D72.829 Elevated troponin I level R77.8 TESSA (acute kidney injury) N17.9 S/P TAVR (transcatheter aortic valve replacement) Z95.2 Hypertension I10 Elevated cholesterol E78.00 BPH (benign prostatic hyperplasia) N40.0 Old 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
[2020-10-04] MEDS: TUBE FEEDING WATER FLUSH GT SCH ×6 (01:55→22:06)
[2020-10-04] MEDS: ASPIRIN 81 MG ECTAB PO SCH (08:40)
[2020-10-04] MEDS: ATORVASTATIN 40 MG TAB PEG SCH (08:41)
[2020-10-04] MEDS: FOLIC ACID 1 MG TAB PEG SCH (08:41)
[2020-10-04] MEDS: THIAMINE HCL 100 MG TAB PEG SCH (08:41)
[2020-10-04] MEDS: ARTIFICIAL TEARS OP SCH ×3 (08:41→21:02)
[2020-10-04] MEDS: FIBERSOURCE HN 1.2 CAL 1000 ML BAG PO SCH (09:42)
--- NOTE | 2020-10-04 21:42 | Hospitalist Progress Note ---
Date of Service October 04, 2020 Assessment & Plan (1) Dysphagia: Plan: - Symptoms for ~2 months onset ~1 months after [place] [facility] [place] - No old stroke seen on MRI brain during admission that was obtained that would account for swallowing dysfunction (old R cerebellar lacune only). -No mass or obstruction/stricture seen on EGD. Follow-up CT with contrast did not show any lesions in the neck/upper chest like to contribute to his dysfunction -Patient also reports a hoarse voice for the last month or 2, differential includes nerve injury Patient unable to swallow safely, multiple reports of extreme coughing at home even with thick liquids such as applesauce PEG tube placed 10/01 Feeds started with fiber source HN, goal rate 60 cc/h with 150 cc free water flush every 4 hours. tolerating well could consider bolus feedings, check with cutting machine tender helper about what that recommendation would be (2) Severe protein-calorie malnutrition: Plan: Severe weight loss (14kg) since his TAVR. Enteral nutrition as noted in dysphagia goal of 60cc/hr via PEG could do bolus feedings after a few days/week if he is tolerating continuous feedings (3) Leukocytosis: Plan: -No leukocytosis 09/29, repeat chest x-ray without interval pneumonia -procal negative. -no infectious symptoms. -COVID negative. -urine cx and blood cx's ngtd - Follow clinically, on room air, continue to monitor for aspiration events with depression precautions (4) Elevated troponin I level: Plan: - Myocardial demand ischemia in setting of dehydration, TESSA, etc. - No true ACS. 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 (5) TESSA (acute kidney injury): Plan: - 2nd volume depletion due to inability to take proper nutrition & hydration. - Peak Cr 1.5. - Normalized - Nutrition as noted holding [place] as BP normal (6) S/P TAVR (transcatheter aortic valve replacement): Plan: -June 2020 at [facility] [place]. (7) Hypertension: Plan: Patient hypotensive with poor intake, improved with fluid bolus - normotensive today, holding [place] indefinitely (8) Elevated cholesterol: Plan: Hold statin. (9) BPH (benign prostatic hyperplasia): Plan: Hold flomax. (10) Old lacunar stroke without late effect: Plan: - on MRI brain - old, small, right-sided cerebellar lacunar stroke. -age-indeterminate but not related to presenting issues. - resume aspirin and statin via PEG (11) Elevated AST (SGOT): Plan: - Mild elevation - Trend (12) Lung nodule < 6cm on CT: Plan: Solitary 4 mm groundglass lung nodule appreciated on CT, does not meet criteria for follow-up although entire lung gannon incompletely visualized. Consider CTchest f/u Plan: PEG 10/01, tube feeds, plan for rehab tomorrow if approved, accepted Admission and Anticipated Discharge Date Admission Date: September 25, 2020 Subjective patient doing well, no new issues met with him and his at the bedside checked with CM, still awaiting insurance auth Review of Systems Review of Systems: All systems reviewed & are unremarkable except as noted in Subjective Physical Exam Constitutional: well developed, + thin and comfortable; no acute distress Neck: trachea midline, no thyromegaly Respiratory: normal respiratory effort, lungs clear to auscultation Cardiovascular: RRR, no murmur, no edema Gastrointestinal (Abdomen): normal bowel sounds, soft, nontender, no hepatosplenomegaly (PEG tube in place) Musculoskeletal: no cyanosis or clubbing, extremities motor strength 5/5 Skin: no rashes, warm and dry Neurologic: normal touch/pain/proprioception, moves all extremities and awake; + CN's not intact (cannot swallow safely) and no focal motor deficits Psychiatric: A+Ox3, euthymic affect Results & Data Results & Data ([facility]) Vital Signs (Past 12 Hours) Vital Signs Temp Pulse Resp BP Pulse Ox 10/04/20 14:49 36.7 C 78 16 114/71 94 Laboratory Results Laboratory Results - last 24 hr 10/03/20 10/04/20 10/04/20 23:44 05:47 12:21 POC Glucose 126 H 131 H 120 H 10/04/20 18:05 POC Glucose 110 H Medications Administered Current Inpatient Medications Acetaminophen (Acetaminophen 325 Mg Tab) 650 mg PO Q4H PRN PRN Reason: Pain or Fever Stop: 10/25/20 16:30 Artificial Tears (Artificial Tears) 1 drops OP TID NIDA Stop: 10/25/20 20:59 Last Admin: 10/04/20 21:02 Dose: 1 drops Documented by: Aspirin (Aspirin 81 Mg Ectab) 81 mg PO QAM [facility] Stop: 11/02/20 08:59 Last Admin: 10/04/20 08:40 Dose: 81 mg Documented by: Atorvastatin Calcium (Atorvastatin 40 Mg Tab) 40 mg PEG QAM [facility] Stop: 11/02/20 08:59 Last Admin: 10/04/20 08:41 Dose: 40 mg Documented by: Enteral Nutritional Formula (Fibersource Hn 1.2 Blas 1000 Ml Bag) 10 ml PO CONT [facility]; Protocol Stop: 11/01/20 09:59 Last Admin: 10/04/20 09:42 Dose: 60 ml Documented by: Folic Acid (Folic Acid 1 Mg Tab) 1 mg PEG QAM [facility] Stop: 11/02/20 08:59 Last Admin: 10/04/20 08:41 Dose: 1 mg Documented by: Nitroglycerin (Nitroglycerin Sl 0.4 Mg/Tab Tab) 0.4 mg SL UD PRN PRN Reason: Chest Pain Stop: 10/25/20 16:30 Ondansetron HCl (Ondansetron Inj 2 Mg/Ml 2 Ml Vial) 4 mg IV Q6H PRN PRN Reason: Nausea Stop: 10/25/20 16:30 Sterile Water (Tube Feeding Water Flush) 150 ml GT Q4H [facility] Stop: 11/01/20 09:59 Last Admin: 10/04/20 17:21 Dose: 150 ml Documented by: Thiamine HCl (Thiamine Hcl 100 Mg Tab) 100 mg PEG QAM [facility] Stop: 11/02/20 08:59 Last Admin: 10/04/20 08:41 Dose: 100 mg Documented by: PG Care Time/CCT Total # of Minutes Spent Total Time Spent with Patient: Total time spent is greater than 50% in coordination of care (as documented) at patient's floor/unit and/or counseling patient: Coding Level of Care Code 34579 Subseq Hosp Care Lvl 1 Diagnoses Dysphagia R13.10 Severe protein-calorie malnutrition E43 Leukocytosis D72.829 Elevated troponin I level R77.8 TESSA (acute kidney injury) N17.9 S/P TAVR (transcatheter aortic valve replacement) Z95.2 Hypertension I10 Elevated cholesterol E78.00 BPH (benign prostatic hyperplasia) N40.0 Old 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
[2020-10-05] MEDS: TUBE FEEDING WATER FLUSH GT SCH ×6 (02:06→22:04)
[2020-10-05] MEDS: FIBERSOURCE HN 1.2 CAL 1000 ML BAG PO SCH (03:27)
[2020-10-05] MEDS: ARTIFICIAL TEARS OP SCH ×3 (09:34→20:43)
[2020-10-05] MEDS: ATORVASTATIN 40 MG TAB PEG SCH (09:34)
[2020-10-05] MEDS: FOLIC ACID 1 MG TAB PEG SCH (09:34)
[2020-10-05] MEDS: ASPIRIN 81 MG CHEW PEG SCH (09:34)
[2020-10-05] MEDS: THIAMINE HCL 100 MG TAB PEG SCH (09:34)
--- NOTE | 2020-10-05 13:49 | Hospitalist Progress Note ---
Date of Service October 05, 2020 Assessment & Plan (1) Dysphagia: Plan: - Symptoms for ~2 months [place] [facility] [place] stroke seen on MRI brain during admission that was obtained that would account for swallowing dysfunction (old R cerebellar lacune only). -No mass or obstruction/stricture seen on EGD. Follow-up CT with contrast did not show any lesions in the neck/upper chest like to contribute to his dysfunction -Patient also reports a hoarse voice for the last month or 2, differential includes nerve injury Patient unable to swallow safely, multiple reports of extreme coughing at home even with thick liquids such as applesauce PEG tube placed 10/01 Feeds started with fiber source HN, goal rate 60 cc/h with 150 cc free water flush every 4 hours. tolerating well will start to transition to bolus feedings today, see how he tolerates (2) Severe protein-calorie malnutrition: Plan: Severe weight loss (14kg) since his TAVR. Enteral nutrition as noted in dysphagia goal of 60cc/hr via PEG try bolus feeds today (3) Leukocytosis: Plan: -No leukocytosis 09/29, repeat chest x-ray without interval pneumonia -procal negative. -no infectious symptoms. -COVID negative. -urine cx and blood cx's ngtd - Follow clinically, on room air, continue to monitor for aspiration events with depression precautions (4) Elevated troponin I level: Plan: - Myocardial demand ischemia in setting of dehydration, TESSA, etc. - No true ACS. 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 (5) TESSA (acute kidney injury): Plan: - 2nd volume depletion due to inability to take proper nutrition & hydration. - Peak Cr 1.5. - Normalized - Nutrition as noted holding [place] as BP normal (6) S/P TAVR (transcatheter aortic valve replacement): Plan: [place] [facility] [place] (7) Hypertension: Plan: Patient hypotensive with poor intake, improved with fluid bolus - normotensive today, holding [place] indefinitely (8) Elevated cholesterol: Plan: Hold statin. (9) BPH (benign prostatic hyperplasia): Plan: Hold flomax. (10) Old lacunar stroke without late effect: Plan: - on MRI brain - old, small, right-sided cerebellar lacunar stroke. -age-indeterminate but not related to presenting issues. - resume aspirin and statin via PEG (11) Elevated AST (SGOT): Plan: - Mild elevation - Trend (12) Lung nodule < 6cm on CT: Plan: Solitary 4 mm groundglass lung nodule appreciated on CT, does not meet criteria for follow-up although entire lung agnnon incompletely visualized. Consider CTchest f/u Plan: PEG 10/01, tube feeds, plan for rehab tomorrow if approved, accepted Admission and Anticipated Discharge Date Admission Date: September 25, 2020 Subjective patient is fine today spoke with nutrition, will change orders to bolus tube feeds from the bag with free water flushes anticipate we may not get word from insurance until Wednesday at this point Review of Systems Review of Systems: All systems reviewed & are unremarkable except as noted in Subjective Physical Exam Constitutional: well developed, + thin and comfortable; no acute distress Neck: trachea midline, no thyromegaly Respiratory: normal respiratory effort, lungs clear to auscultation Cardiovascular: RRR, no murmur, no edema Gastrointestinal (Abdomen): normal bowel sounds, soft, nontender, no hepatosplenomegaly (PEG tube in place) Musculoskeletal: no cyanosis or clubbing, extremities motor strength 5/5 Skin: no rashes, warm and dry Neurologic: normal touch/pain/proprioception, moves all extremities and awake; + CN's not intact (cannot swallow safely) and no focal motor deficits Psychiatric: A+Ox3, euthymic affect Results & Data Results & Data ([facility]) Vital Signs (Past 12 Hours) Vital Signs Temp Pulse Resp BP Pulse Ox 10/05/20 07:56 36.5 C 66 18 124/75 95 Laboratory Results Laboratory Results - last 24 hr 10/04/20 10/04/20 10/05/20 18:05 23:49 06:10 POC Glucose 110 H 125 H 126 H 10/05/20 12:20 POC Glucose 90 Medications Administered Current Inpatient Medications Acetaminophen (Acetaminophen 325 Mg Tab) 650 mg PO Q4H PRN PRN Reason: Pain or Fever Stop: 10/25/20 16:30 Artificial Tears (Artificial Tears) 1 drops OP TID NIDA Stop: 10/25/20 20:59 Last Admin: 10/05/20 09:34 Dose: 1 drops Documented by: Aspirin (Aspirin 81 Mg Chew) 81 mg PEG QAM [facility] Stop: 11/04/20 08:59 Last Admin: 10/05/20 09:34 Dose: 81 mg Documented by: Atorvastatin Calcium (Atorvastatin 40 Mg Tab) 40 mg PEG QAM NIDA Stop: 11/02/20 08:59 Last Admin: 10/05/20 09:34 Dose: 40 mg Documented by: Enteral Nutritional Formula (Fibersource Hn 1.2 Blas 1000 Ml Bag) 250 ml GT Q4 NIDA; Protocol Stop: 11/04/20 15:59 Folic Acid (Folic Acid 1 Mg Tab) 1 mg PEG QAM NIDA Stop: 11/02/20 08:59 Last Admin: 10/05/20 09:34 Dose: 1 mg Documented by: Nitroglycerin (Nitroglycerin Sl 0.4 Mg/Tab Tab) 0.4 mg SL UD PRN PRN Reason: Chest Pain Stop: 10/25/20 16:30 Ondansetron HCl (Ondansetron Inj 2 Mg/Ml 2 Ml Vial) 4 mg IV Q6H PRN PRN Reason: Nausea Stop: 10/25/20 16:30 Sterile Water (Tube Feeding Water Flush) 150 ml GT Q4H [facility] Stop: 11/01/20 09:59 Last Admin: 10/05/20 10:12 Dose: 150 ml Documented by: Thiamine HCl (Thiamine Hcl 100 Mg Tab) 100 mg PEG QAM NIDA Stop: 11/02/20 08:59 Last Admin: 10/05/20 09:34 Dose: 100 mg Documented by: PG Care Time/CCT Total # of Minutes Spent Total Time Spent with Patient: Total time spent is greater than 50% in coordination of care (as documented) at patient's floor/unit and/or counseling patient: Coding Level of Care Code 32925 Subseq Hosp Care Lvl 1 Diagnoses Dysphagia R13.10 Severe protein-calorie malnutrition E43 Leukocytosis D72.829 Elevated troponin I level R77.8 TESSA (acute kidney injury) N17.9 S/P TAVR (transcatheter aortic valve replacement) Z95.2 Hypertension I10 Elevated cholesterol E78.00 BPH (benign prostatic hyperplasia) N40.0 Old 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
[2020-10-05] MEDS: FIBERSOURCE HN 1.2 CAL 1000 ML BAG GT SCH ×2 (15:59→20:42)
[2020-10-05] MEDS ORDERED: Nursing to Pharmacy Communication SCH (16:30)
[2020-10-06] MEDS: FIBERSOURCE HN 1.2 CAL 1000 ML BAG GT SCH ×6 (00:07→19:59)
[2020-10-06] MEDS: TUBE FEEDING WATER FLUSH GT SCH ×6 (01:16→21:31)
[2020-10-06] MEDS: ASPIRIN 81 MG CHEW PEG SCH (09:03)
[2020-10-06] MEDS: THIAMINE HCL 100 MG TAB PEG SCH (09:03)
[2020-10-06] MEDS: ARTIFICIAL TEARS OP SCH ×3 (09:04→19:59)
[2020-10-06] MEDS: ATORVASTATIN 40 MG TAB PEG SCH (09:04)
[2020-10-06] MEDS: FOLIC ACID 1 MG TAB PEG SCH (09:04)
--- NOTE | 2020-10-06 13:21 | Hospitalist Progress Note ---
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 -No mass or obstruction/stricture seen on EGD. Follow-up CT with contrast did not show any lesions in the neck/upper chest like to contribute to his dysfunction -Patient also reports a hoarse voice for the last month or 2, differential includes nerve injury Patient unable to swallow safely, multiple reports of extreme coughing at home even with thick liquids such as applesauce PEG tube placed 10/01 Feeds started with fiber source HN, goal rate 60 cc/h with 150 cc free water flush every 4 hours. tolerating well now tolerating bolus feedings of 250mL every 4 hours with 150mL of free water every 4 hours as well for hydration he feels like he is swallowing better now, able to initiate a swallow for his secretions I spoke with speech therapy, they will see him tomorrow (10/07) to re-evaluate swallowing he has a route for nutrition, but hopefully he will be strong enough to start therapy for swallowing awaiting insurance auth for [facility], SNFs have been listed as back up (2) Severe protein-calorie malnutrition: Plan: Severe weight loss (14kg) since his TAVR. Enteral nutrition as noted in dysphagia goal of 60cc/hr via PEG, tolerated this for 2 days changed to bolus feedings, 250mL every 4 hours with 150mL of free water every 4 hours as well tolerating this well, no vomiting can continue bolus feedings on discharge to rehab to make it easier for him to do therapy (3) Leukocytosis: Plan: -No leukocytosis 09/29, repeat chest x-ray without interval pneumonia -procal negative. -no infectious symptoms. -COVID negative. -urine cx and blood cx's ngtd - Follow clinically, on room air, continue to monitor for aspiration events with depression precautions (4) Elevated troponin I level: Plan: - Myocardial demand ischemia in setting of dehydration, TESSA, etc. - No true ACS. 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 (5) TESSA (acute kidney injury): Plan: - 2nd volume depletion due to inability to take proper nutrition & hydration. - Peak Cr 1.5. - Normalized - Nutrition as noted holding [place] as BP normal could stop [place] inh on discharge (6) S/P TAVR (transcatheter aortic valve replacement): Plan: -June 2020 at [facility] [place] (7) Hypertension: Plan: Patient hypotensive with poor intake, improved with fluid bolus - normotensive today, holding [place] indefinitely (8) Elevated cholesterol: Plan: Hold statin. (9) BPH (benign prostatic hyperplasia): Plan: Hold flomax. (10) Old lacunar stroke without late effect: Plan: - on MRI brain - old, small, right-sided cerebellar lacunar stroke. -age-indeterminate but not related to presenting issues. - resume aspirin and statin via PEG (11) Elevated AST (SGOT): Plan: - Mild elevation - Trend (12) Lung nodule < 6cm on CT: Plan: Solitary 4 mm groundglass lung nodule appreciated on CT, does not meet criteria for follow-up although entire lung gannon incompletely visualized. Consider CTchest f/u Plan: PEG 10/01, plan for [facility] tomorrow if insurance authorizes, can go to SNF if denied continue bolus tube feeds via PEG continue outpatient speech therapy to improve swallowing Admission and Anticipated Discharge Date Admission Date: September 25, 2020 Subjective patient doing well, walked down the lackey with physical therapy today, this is the furthest he has walked he feels like his swallowing is better, he is swallowing his secretions, not using suctioning I observed him at the bedside, he did seem to initiate a swallow appropriately I message speech therapy to see him tomorrow if possible awaiting determination on rehab tomorrow from insurance company Review of Systems Review of Systems: All systems reviewed & are unremarkable except as noted in Subjective Physical Exam Constitutional: well developed, + thin and comfortable; no acute distress Neck: trachea midline, no thyromegaly Respiratory: normal respiratory effort, lungs clear to auscultation Cardiovascular: RRR, no murmur, no edema Gastrointestinal (Abdomen): normal bowel sounds, soft, nontender, no hepatosplenomegaly (PEG tube in place) Musculoskeletal: no cyanosis or clubbing, extremities motor strength 5/5 Skin: no rashes, warm and dry Neurologic: normal touch/pain/proprioception, moves all extremities and awake; + CN's not intact (cannot swallow safely) and no focal motor deficits Psychiatric: A+Ox3, euthymic affect Results & Data Results & Data ([facility]) Vital Signs (Past 12 Hours) Vital Signs Temp Pulse Resp BP BP Pulse Ox 10/06/20 11:51 36.9 C 96 H 18 110/72 95 10/06/20 07:45 36.5 C 67 18 122/58 L 96 Laboratory Results Laboratory Results - last 24 hr 10/05/20 10/06/20 10/06/20 18:58 00:17 06:18 POC Glucose 92 100 H 128 H 10/06/20 12:02 POC Glucose 87 Medications Administered Current Inpatient Medications Acetaminophen (Acetaminophen 325 Mg Tab) 650 mg PO Q4H PRN PRN Reason: Pain or Fever Stop: 10/25/20 16:30 Artificial Tears (Artificial Tears) 1 drops OP TID NIDA Stop: 10/25/20 20:59 Last Admin: 10/06/20 09:04 Dose: Not Given Documented by: Aspirin (Aspirin 81 Mg Chew) 81 mg PEG QAM NIDA Stop: 11/04/20 08:59 Last Admin: 10/06/20 09:03 Dose: 81 mg Documented by: Atorvastatin Calcium (Atorvastatin 40 Mg Tab) 40 mg PEG QAM NIDA Stop: 11/02/20 08:59 Last Admin: 10/06/20 09:04 Dose: 40 mg Documented by: Enteral Nutritional Formula (Fibersource Hn 1.2 Blas 1000 Ml Bag) 250 ml GT Q4 NIDA; Protocol Stop: 11/04/20 15:59 Last Admin: 10/06/20 12:26 Dose: 250 ml Documented by: Folic Acid (Folic Acid 1 Mg Tab) 1 mg PEG QAM NIDA Stop: 11/02/20 08:59 Last Admin: 10/06/20 09:04 Dose: 1 mg Documented by: Nitroglycerin (Nitroglycerin Sl 0.4 Mg/Tab Tab) 0.4 mg SL UD PRN PRN Reason: Chest Pain Stop: 10/25/20 16:30 Ondansetron HCl (Ondansetron Inj 2 Mg/Ml 2 Ml Vial) 4 mg IV Q6H PRN PRN Reason: Nausea Stop: 10/25/20 16:30 Sterile Water (Tube Feeding Water Flush) 150 ml GT Q4H NIDA Stop: 11/01/20 09:59 Last Admin: 10/06/20 09:04 Dose: 150 ml Documented by: Thiamine HCl (Thiamine Hcl 100 Mg Tab) 100 mg PEG QAM NIDA Stop: 11/02/20 08:59 Last Admin: 10/06/20 09:03 Dose: 100 mg Documented by: PG Care Time/CCT Total # of Minutes Spent Total Time Spent with Patient: Total time spent is greater than 50% in coordination of care (as documented) at patient's floor/unit and/or counseling patient: Coding Level of Care Code 21726 Subseq Hosp Care Lvl 2 Diagnoses Dysphagia R13.10 Severe protein-calorie malnutrition E43 Leukocytosis D72.829 Elevated troponin I level R77.8 TESSA (acute kidney injury) N17.9 S/P TAVR (transcatheter aortic valve replacement) Z95.2 Hypertension I10 Elevated cholesterol E78.00 BPH (benign prostatic hyperplasia) N40.0 Old 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
[2020-10-07] MEDS: FIBERSOURCE HN 1.2 CAL 1000 ML BAG GT SCH ×6 (01:03→19:48)
[2020-10-07] MEDS: TUBE FEEDING WATER FLUSH GT SCH ×6 (02:26→21:08)
[2020-10-07] MEDS: THIAMINE HCL 100 MG TAB PEG SCH (08:24)
[2020-10-07] MEDS: FOLIC ACID 1 MG TAB PEG SCH (08:24)
[2020-10-07] MEDS: ASPIRIN 81 MG CHEW PEG SCH (08:24)
[2020-10-07] MEDS: ATORVASTATIN 40 MG TAB PEG SCH (08:25)
[2020-10-07] MEDS: ARTIFICIAL TEARS OP SCH ×3 (08:25→19:48)
--- NOTE | 2020-10-07 21:10 | Hospitalist Progress Note ---
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 -No mass or obstruction/stricture seen on EGD. Follow-up CT with contrast did not show any lesions in the neck/upper chest like to contribute to his dysfunction -Patient also reports a hoarse voice for the last month or 2, differential includes nerve injury Patient unable to swallow safely, multiple reports of extreme coughing at home even with thick liquids such as applesauce PEG tube placed 10/01 Feeds started with fiber source HN, goal rate 60 cc/h with 150 cc free water flush every 4 hours. tolerating well now tolerating bolus feedings of 250mL every 4 hours with 150mL of free water every 4 hours as well for hydration He feels like he is swallowing better now, able to initiate a swallow for his secretions Speech therapy evaluated patient and reports that he did improve and they will perform further testing tomorrow. Will remain NPO for now. he has a route for nutrition, but hopefully he will be strong enough to start therapy for swallowing awaiting insurance auth for [facility], SNFs have been listed as back up (2) Severe protein-calorie malnutrition: Plan: Severe weight loss (14kg) since his TAVR. Enteral nutrition as noted in dysphagia goal of 60cc/hr via PEG, tolerated this for 2 days changed to bolus feedings, 250mL every 4 hours with 150mL of free water every 4 hours as well tolerating this well, no vomiting can continue bolus feedings on discharge to rehab to make it easier for him to do therapy (3) Leukocytosis: Plan: -No leukocytosis 09/29, repeat chest x-ray without interval pneumonia -procal negative. -no infectious symptoms. -COVID negative. -urine cx and blood cx's ngtd - Follow clinically, on room air, continue to monitor for aspiration events with depression precautions (4) Elevated troponin I level: Plan: - Myocardial demand ischemia in setting of dehydration, TESSA, etc. - No true ACS. 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 (5) TESSA (acute kidney injury): Plan: - 2nd volume depletion due to inability to take proper nutrition & hydration. - Peak Cr 1.5. - Normalized - Nutrition as noted holding [place] as BP normal could stop [place] inh on discharge (6) S/P TAVR (transcatheter aortic valve replacement): Plan: -June 2020 at [facility] [place] (7) Hypertension: Plan: Patient hypotensive with poor intake, improved with fluid bolus - normotensive today, holding [place] indefinitely (8) Elevated cholesterol: Plan: Hold statin. (9) BPH (benign prostatic hyperplasia): Plan: Hold flomax. (10) Old lacunar stroke without late effect: Plan: - on MRI brain - old, small, right-sided cerebellar lacunar stroke. -age-indeterminate but not related to presenting issues. - resume aspirin and statin via PEG (11) Elevated AST (SGOT): Plan: - Mild elevation - Trend (12) Lung nodule < 6cm on CT: Plan: Solitary 4 mm groundglass lung nodule appreciated on CT, does not meet criteria for follow-up although entire lung gannon incompletely visualized. Consider CTchest f/u Plan: PEG 10/01, plan for [facility] tomorrow if insurance authorizes, can go to SNF if denied continue bolus tube feeds via PEG continue outpatient speech therapy to improve swallowing Admission and Anticipated Discharge Date Admission Date: September 25, 2020 Subjective Patient reports no new symptoms. Review of Systems Review of Systems: All systems reviewed & are unremarkable except as noted in HPI & below Physical Exam Physical Exam: Constitutional: well developed, + thin and comfortable; no acute distress Neck: trachea midline, no thyromegaly Respiratory: normal respiratory effort, lungs clear to auscultation Cardiovascular: RRR, no murmur, no edema Gastrointestinal (Abdomen): normal bowel sounds, soft, nontender, no hepatosplenomegaly (PEG tube in place) Musculoskeletal: no cyanosis or clubbing, extremities motor strength 5/5 Skin: no rashes, warm and dry Neurologic: normal touch/pain/proprioception, moves all extremities and awake; + CN's not intact (cannot swallow safely) and no focal motor deficits Psychiatric: A+Ox3, euthymic affect Results & Data Results & Data ([facility]) Vital Signs (Past 12 Hours) Vital Signs Temp Pulse Resp BP Pulse Ox 10/07/20 15:29 36.8 C 90 18 102/69 95 PG Care Time/CCT Total # of Minutes Spent Total Time Spent with Patient: Total time spent is greater than 50% in coordination of care (as documented) at patient's floor/unit and/or counseling patient: Coding Level of Care Code 69339 Subseq Hosp Care Lvl 2 Diagnoses Dysphagia R13.10 Severe protein-calorie malnutrition E43 Leukocytosis D72.829 Elevated troponin I level R77.8 TESSA (acute kidney injury) N17.9 S/P TAVR (transcatheter aortic valve replacement) Z95.2 Hypertension I10 Elevated cholesterol E78.00 BPH (benign prostatic hyperplasia) N40.0 Old 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 Time Spent (min) 25
[2020-10-08] MEDS: FIBERSOURCE HN 1.2 CAL 1000 ML BAG GT SCH ×5 (00:21→17:11)
[2020-10-08] MEDS: TUBE FEEDING WATER FLUSH GT SCH ×5 (00:53→17:11)
[2020-10-08 07:42] LABS: Hematocrit (blood only) 36.1 % (42-52); Hemoglobin 11.8 g/dL (14.0-18.0); Mean Corpuscular Hgb Conc 32.7 g/dL (32-36); Mean Corpuscular Volume 88.7 fL (80-100); Mean Platelet Volume 10.2 fL (7.4-10.4); Platelet Count 234 K/uL (130-400); RDW Coefficient of Variation 14.3 % (11.5-14.5); RDW Standard Deviation 46.5 fL (36.4-46.3); Red Blood Count 4.07 M/uL (4.7-6.1); White Blood Count 9.58 K/uL (4.8-10.8)
[2020-10-08 08:16] LABS: BUN Creatinine Ratio 27.3 (10-20); Calcium 8.7 mg/dl (8.5-10.1); Creatinine Clr Calc Pharmacy 57.9 ml/min; Est GFR (African American) 89.5 ml/min; Est GFR (Non-African American) 77.2 ml/min; Potassium 3.8 mmol/L (3.5-5.1)
[2020-10-08] MEDS: THIAMINE HCL 100 MG TAB PEG SCH (09:20)
[2020-10-08] MEDS: ATORVASTATIN 40 MG TAB PEG SCH (09:20)
[2020-10-08] MEDS: ASPIRIN 81 MG CHEW PEG SCH (09:20)
[2020-10-08] MEDS: FOLIC ACID 1 MG TAB PEG SCH (09:20)
[2020-10-08] MEDS: ARTIFICIAL TEARS OP SCH ×2 (09:20→15:18)
--- NOTE | 2020-10-09 07:10 | Discharge Summary ---
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 He was brought into the emergency department with family noticed progressive symptoms as noted above. Patient reports he just has no appetite, and denies any abdominal discomfort, nausea or vomiting. Principal Diagnosis dysphagia Discharge Exam Constitutional: well developed, + thin and comfortable; no acute distress Neck: trachea midline, no thyromegaly Respiratory: normal respiratory effort, lungs clear to auscultation Cardiovascular: RRR, no murmur, no edema Gastrointestinal (Abdomen): normal bowel sounds, soft, nontender, no hepatosplenomegaly (PEG tube in place) Musculoskeletal: no cyanosis or clubbing, extremities motor strength 5/5 Skin: no rashes, warm and dry Neurologic: normal touch/pain/proprioception, moves all extremities and awake; + CN's not intact (cannot swallow safely) and no focal motor deficits Psychiatric: A+Ox3, euthymic affect Discharge Data Allergies Allergy/AdvReac Type Severity Reaction Status Date / Time metoprolol AdvReac Severe Fingers Verified 10/01/20 11:26 turned Blue/ Poor Circulation Consultations 09/25/20 13:00 ED Decision to Admit Stat 09/26/20 21:11 Consult Gastroenterology Routine Procedures Performed Operation Date: 09/27/20 18:10 Actual Procedures p EGD Biopsy Cytology - Rigo Hawkins Case, DO Operation Date: 10/01/20 16:30 Actual Procedures p PEG Tube Placement - Giuseppe Huston MD Ordered Studies 09/26/20 12:59 MR brain wo con Routine 09/27/20 15:09 CT soft tissue neck w con Routine Hospital Course (1) Dysphagia: - Symptoms for ~2 months onset ~1 months after [place] [facility] [place] No old stroke seen on MRI brain during admission that was obtained that would account for swallowing dysfunction (old R cerebellar lacune only). -No mass or obstruction/stricture seen on EGD. Follow-up CT with contrast did not show any lesions in the neck/upper chest like to contribute to his dysfunction -Patient also reports a hoarse voice for the last month or 2, differential includes nerve injury Patient unable to swallow safely, multiple reports of extreme coughing at home even with thick liquids such as applesauce PEG tube placed 10/01 Feeds started with fiber source HN, goal rate 60 cc/h with 150 cc free water flush every 4 hours. tolerating well now tolerating bolus feedings of 250mL every 4 hours with 150mL of free water every 4 hours as well for hydration He feels like he is swallowing better now, able to initiate a swallow for his secretions Speech therapy evaluated patient and reports that he did improve and they performed a FEES. Recommendations: 1.Will slow titrate to Easy to Chew Diet IDDSI 7 2. Aspiration Precautions: Fully alert and upright; alternate solids and liquids; encourage multiple swallows 3. Oral Hygiene PRIOR TO oral intake in morning and before bed at night. 4. Close clinical monitoring for s/s aspiration: look for fever, increased congestion, increased lethargy, etc. 5. Consider SOLAR SALES ENERGY ADVISOR f/u for improving vocal fold adduction and pharyngeal constriction. 6. Work closely with providers to transition from PEG-tube feeding to oral intake in a safe manner. (2) Severe protein-calorie malnutrition: Severe weight loss (14kg) since his TAVR. Enteral nutrition as noted in dysphagia goal of 60cc/hr via PEG, tolerated this for 2 days changed to bolus feedings, 250mL every 4 hours with 150mL of free water every 4 hours as well tolerating this well, no vomiting can continue bolus feedings on discharge to rehab to make it easier for him to do therapy (3) Leukocytosis: -No leukocytosis 09/29, repeat chest x-ray without interval pneumonia -procal negative. -no infectious symptoms. -COVID negative. -urine cx and blood cx's ngtd - Follow clinically, on room air, continue to monitor for aspiration events with depression precautions (4) Elevated troponin I level: - Myocardial demand ischemia in setting of dehydration, TESSA, etc. - No true ACS. 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 (5) TESSA (acute kidney injury): - 2nd volume depletion due to inability to take proper nutrition & hydration. - Peak Cr 1.5. - Normalized - Nutrition as noted holding [place] as BP normal could stop [place] inh on discharge (6) S/P TAVR (transcatheter aortic valve replacement): -June 2020 at [facility] [place]. (7) Hypertension: Patient hypotensive with poor intake, improved with fluid bolus - normotensive today, holding [place] indefinitely (8) Elevated cholesterol: Hold statin. (9) BPH (benign prostatic hyperplasia): resume flomax at discharge. If patient becomes orthostatic or hypotensive, may need to consider stopping it. (10) Old lacunar stroke without late effect: - on MRI brain - old, small, right-sided cerebellar lacunar stroke. -age-indeterminate but not related to presenting issues. - resume aspirin and statin via PEG (11) Elevated AST (SGOT): - Mild elevation (12) Lung nodule < 6cm on CT: Solitary 4 mm groundglass lung nodule appreciated on CT, does not meet criteria for follow-up although entire lung gannon incompletely visualized. Consider CTchest f/u as an outpatient. (13) Oral candidiasis: Treatment for jonatan. Evidence of it at tongue base noted during study. Will do fluconazole for 7 days. PEG 10/01, plan for [facility] tomorrow if insurance authorizes, can go to SNF if denied continue bolus tube feeds via PEG continue outpatient speech therapy to improve swallowing Total Time Total Time Spent Total Time Spent (In Minutes): 32 Discharge Plan Discharge Items Patient Disposition: Transfer [facility] Reason For Visit: WEAKNESS, DEHYDRATION, TESSA, ELEVATED TROPONIN Discharge Diagnosis: weakness, dehydration, TESSA, elevated trop. Condition on Discharge: Fair Activity: Resume your previous activity Non-emergency contact: Primary Care Provider Call non-emergency contact if: you have any medication questions Follow-up/Referrals: Marcie Wallace CRNP [Primary Care Provider] - Diet: Other - See Diet Comment Diet Comment: as below Addtl Attending Provider Instructions: Fibersource HN Q4H (PROVIDE 250 ML) Set pump to run over 1 hour TF will provide 1800 kcal, 81 g of protein, 1500ml of total volume: 1212 ml of H20 AND 246 g CHO Continue free water flushes of 150 ml q 4 hr Maintain weight +/- 5 pounds Recommendations: 1. Transition to Easy to Chew Diet IDDSI 7 2. Aspiration Precautions: Fully alert and upright; alternate solids and liquids; encourage multiple swallows 3. Oral Hygiene PRIOR TO oral intake in morning and before bed at night. 4. Close clinical monitoring for s/s aspiration: look for fever, increased congestion, increased lethargy, etc. 5. Consider SOLAR SAL[employer] ENERGY ADVISOR f/u for improving vocal fold adduction and pharyngeal constriction. 6. Work closely with providers to transition from PEG-tube feeding to oral intake in a safe manner Pending Studies at Discharge: No Stand-Alone Forms: My [facility] Skilled Items Patient informed of condition?: Yes DNR: No Discharge Level of Care: Skilled Communicable Disease: No Discharge Prognosis: Stable Lines: None Urinary Catheter: No Medications and DC Order Prescriptions: New thiamine HCl (vitamin B1) [Vitamin B-1] 100 mg Tablet 100 mg PEG QAM Qty: 30 RF: 0 folic acid 1 mg Tablet 1 mg PEG QAM Qty: 30 RF: 0 Fibersource HN 0.05 gram- 1.2 kcal/mL Liquid See Rx Instructions .ROUTE .COMPLEX Qty: 6000 RF: 0 fluconazole 100 mg tablet See Rx Instructions .ROUTE .COMPLEX Qty: 8 RF: 0 Continued aspirin 81 mg tablet,delayed release (DR/EC) 81 mg PO QAM RF: 0 cholecalciferol (vitamin D3) 2,000 unit capsule 50 mcg PO QAM Qty: 100 RF: 0 lubricants Gel 1 ea TOPICAL HS RF: 0 Refresh Optive Evaristo-3 (PF) 0.5-1-0.5 % Dropperette 1 drp OPHTHALMIC (EYE) TID RF: 0 atorvastatin [Lipitor] 40 mg tablet 40 mg PO HS RF: 0 tamsulosin 0.4 mg capsule 0.4 mg PO HS RF: 0 Discontinued lisinopril 5 mg tablet 5 mg PO QAM Qty: 90 RF: 3 Discharge Orders: Discharge Order (Routine); Ordered 10/08/20 Ordered By: Bobby Benson Admission Data Admit Date/Time: 09/25/20 14:11 Attending Provider: Bobby Benson Admit Provider: Steve Espinoza Primary Care Provider: Marcie Wallace Other Providers: [facility] ; Steve Espinoza ; Rigo Henry ; [facility], ; Korin Patel [facility] [address] [facility] ; [place],[facility] [place] Other Interventions: Discharge Summary Assessment (RN) Last Done: 10/08/20 15:33 Coding Level of Care Code D/C DAY MANAGEMENT >30 MINS Diagnoses Dysphagia R13.10 Severe protein-calorie malnutrition E43 Leukocytosis D72.829 Elevated troponin I level R77.8 TESSA (acute kidney injury) N17.9 S/P TAVR (transcatheter aortic valve replacement) Z95.2 Hypertension I10 Elevated cholesterol E78.00 BPH (benign prostatic hyperplasia) N40.0 Old 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 Oral candidiasis B37.0
== END 2020-10-08 17:20 | DRG 391 ==
LOC: ED 09:46 → SUATTDRO 14:11 → 1E 14:11 → 2E 09-27 11:00 → 3N 09-30 16:23
DX: E43 Unspecified severe protein-calorie malnutrition; R91.1 Solitary pulmonary nodule; R13.10 Dysphagia, unspecified; N39.0 Urinary tract infection, site not specified; N40.0 Benign prostatic hyperplasia without lower urinary tract symptoms; B37.0 Candidal stomatitis; R79.89 Other specified abnormal findings of blood chemistry; I10 Essential (primary) hypertension; Z95.2 Presence of prosthetic heart valve; I24.8 Other forms of acute ischemic heart disease; N17.9 Acute kidney failure, unspecified; H90.6 Mixed conductive and sensorineural hearing loss, bilateral; Z86.73 Personal history of transient ischemic attack (TIA), and cerebral infarction without residual deficits; E86.0 Dehydration; Z88.8 Allergy status to other drugs, medicaments and biological substances

== ENCOUNTER 2020-12-08 11:13 | Inpatient (IN) ==
--- NOTE | 2020-12-08 11:59 | Emergency Department Note ---
History of Present Illness General Chief complaint: GI Assessment Stated complaint: DIFFICULTY SWALLOWING/UNABLE TO EAT/DRINK Time Seen by Provider: 12/08/20 11:22 History of Present Illness 80-year-old male presents to the ED with a chief complaint of difficulty swallowing. The patient has had the symptoms for the past 2 to 3 days. The patient had similar symptoms back in September for which he needed a feeding tube. The patient after he attempts to eat or drink too much, he started to cough according to the patient and his . He has had decreased p.o. intake for a few days. The patient had his previous symptoms and had some renal insufficiency during his ED visit in September. Home Medications Medication Instructions Recorded Confirmed Type cholecalciferol (vitamin D3) 50 50 mcg PO QAM #100 cap 09/28/18 12/08/20 History mcg (2,000 unit) capsule carboxymethyl 0.5 %-glycerin 1 1 drp OPHTHALMIC (EYE) TID 04/01/20 12/08/20 History %-polysorb 80 0.5 %-PF eye dropperette (Refresh Optive Evaristo-3 (PF)) lubricants topical gel 1 ea TOPICAL HS 04/01/20 12/08/20 History aspirin 81 mg tablet,delayed 81 mg PO QAM 07/12/20 12/08/20 History release tamsulosin 0.4 mg capsule 0.4 mg PO QDD 09/25/20 12/08/20 History atorvastatin 40 mg tablet (Lipitor) 40 mg PO HS #90 tab 10/28/20 12/08/20 Rx folic acid 1 mg tablet 1 mg PO QAM 12/08/20 12/08/20 History thiamine HCl (vitamin B1) 100 mg 100 mg PO QAM 12/08/20 12/08/20 History tablet (Vitamin B-1) Allergies Allergy/AdvReac Type Severity Reaction Status Date / Time metoprolol AdvReac Severe Fingers Verified 12/08/20 12:15 turned Blue/ Poor Circulation Past Med/Surg History Medical History Aortic stenosis Resolved with TAVR. BPH (benign prostatic hyperplasia) Chronic obstructive pulmonary disease emphysema Cognitive decline Hypertension Obesity Osteoarthritis PEG (percutaneous endoscopic gastrostomy) adjustment/replacement/removal had placed due to dehydration and not able to swallow. Pulmonary nodule Stroke mild stroke per MRI incidental finding. Surgical History History of cataract surgery R/L > subsequent laser surgery on eyes S/P TAVR (transcatheter aortic valve replacement) (06/2020) Family History Father Myocardial infarction Cardiac disorder Brother Myocardial infarction Cardiac disorder Hypertension FHx: deafness or hearing loss Sister Hypertension Cardiac disorder Denies family history of Ovarian cancer Prostate cancer Breast cancer Bleeding disorder Colorectal cancer Social History Smoking Status: Former smoker Second Hand Exposure: No; Hx Alcohol Use: No Hx Substance Use: No Preferred Language: Tajik Communication Ability: Effective Pressure Welder Required: No Beliefs That Will Affect Care: None marital status: Current Living Situation: Spouse Current Living Situation Comment: has home therapy in to see for a month current occupational status: retired current occupation: Retired Feels Safe at Home: Yes caffeine: Yes Dental Care, Regularly: Yes Physical Activity Frequency: Does not Exercise Seatbelt Use: always Sunscreen Use: No Assistive Devices: Walker Review of Systems A total of 10 systems reviewed and were otherwise negative Physical Exam Vital Signs Vital Signs - 24 hr 12/08/20 11:16 12/08/20 11:45 Temperature 36.1 C L Temperature Source Temporal Artery Scan Pulse Rate 93 H 72 Pulse Rhythm Regular Regular Pulse Strength Normal Respiratory Rate 20 20 Respiratory Effort / Characteristics Non-Labored Spontaneous Respiratory Depth Normal Respiratory Pattern Regular Blood Pressure 140/78 Blood Pressure Mean 98 Blood Pressure Position Sitting Pulse Oximetry 100 96 Oxygen Delivery Method Room Air Room Air Sepsis Recent Fever Within 48 Hours No Sepsis New/Unexplained Change in Mental Status No Sepsis Action Taken by Nursing No Action Required CONSTITUTIONAL/VITAL SIGNS: Reviewed / noted above. GENERAL: Non-toxic in appearance. INTEGUMENTARY: Warm, dry, and Clive. HEAD: Normocephalic. EYES: without scleral icterus or trauma. ENT/OROPHARYNX: clear and moist. LYMPHADENOPATHY/NECK: Is supple without lymphadenopathy or meningismus. RESPIRATORY: Clear to auscultation bilaterally. No increased work of breathing. CARDIOVASCULAR: Regular rate and rhythm. GI/ABDOMEN: Soft and nontender. No organomegaly or pulsatile mass. EXTREMITIES: Warm and well perfused. BACK: No CVA tenderness. NEUROLOGICAL: Intact without focal deficits. PSYCHIATRIC: normal affect. MUSCULOSKELETAL: Normally developed with good muscle tone. TRIAGE NURSING DOCUMENTATION REVIEWED. Course Administered Medications Discontinued Medications Sodium Chloride (Nss) 500 mls @ 999 mls/hr IV .Q31M NIDA Stop: 12/08/20 12:30 Last Admin: 12/08/20 11:57 Dose: 999 mls/hr Documented by: [id number] Medical Decision Making Differential Diagnosis Differential includes acute coronary syndrome, myocardial infarction, CVA, TIA, anemia, infection, pneumonia, UTI, pyelonephritis, poor nutrition, dehydration, electrolyte disturbance,hypoglycemia. Medical Records Attestation: I reviewed the patient's medical records. Home Medications Current Medication List: was personally reviewed by me Laboratory Data Attestation: I reviewed the patient's lab results. Result diagrams: 12/08/20 11:49 12/08/20 12:30 Lab Results 12/08/20 12/08/20 12/08/20 Range/Units 11:49 11:49 12:30 WBC 10.57 (4.8-10.8) K/uL RBC 4.64 L (4.7-6.1) M/uL Hgb 13.6 L (14.0-18.0) g/dL Hct 40.1 L (42-52) % MCV 86.4 (80-100) fL MCH 29.3 (25-34) pg MCHC 33.9 (32-36) g/dL RDW Std Deviation 43.8 (36.4-46.3) fL RDW Coeff of Driss 13.9 (11.5-14.5) % Plt Count 226 (130-400) K/uL MPV 10.2 (7.4-10.4) fL Immature Gran % (Auto) 0.1 % Neut % (Auto) 79.0 % Lymph % (Auto) 11.7 % [place] % (Auto) 8.1 % Eos % (Auto) 0.9 % Baso % (Auto) 0.2 % Neut # (Auto) 8.34 H (1.4-6.5) K/uL Lymph # (Auto) 1.24 (1.2-3.4) K/uL [place] # (Auto) 0.86 H (0.11-0.59) K/uL Eos # (Auto) 0.10 (0-0.5) K/uL Baso # (Auto) 0.02 (0-0.2) K/uL Immature Gran # (Auto) 0.01 (0.00-0.02) K/uL Sodium 135 L (136-145) mmol/L Potassium 3.6 (3.5-5.1) mmol/L Chloride 103 (98-107) mmol/L Carbon Dioxide 30 (21-32) mmol/L Anion Gap 2.0 L (3-11) BUN 19 H (7-18) mg/dl Creatinine 1.18 (0.6-1.4) mg/dl Est Cr Clr Drug Dosing Not Reportable Est GFR ( Amer) 66.2 ml/min Est GFR (Non-Af Amer) 57.1 ml/min BUN/Creatinine Ratio 16.4 (10-20) Glucose 105 H (70-99) mg/dl Calcium 9.6 (8.5-10.1) mg/dl Magnesium 2.0 (1.8-2.4) mg/dl Total Bilirubin 1.1 H (0.2-1) mg/dl AST 16 (15-37) U/L ALT 25 (12-78) U/L Alkaline Phosphatase 81 (45-117) U/L Total Creatine Kinase 72 (39-308) U/L Total Protein 7.8 (6.4-8.2) gm/dl Albumin 3.4 (3.4-5.0) gm/dl Globulin 4.4 H (2.5-4.0) gm/dl Albumin/Globulin Ratio 0.8 L (0.9-2) ECG Data Attestation: I personally reviewed and interpreted this ECG as follows: MDM Narrative 80-year-old male presents with difficulty swallowing for the past few days. Decreased p.o. intake. Similar symptoms in the past requiring a PEG tube. I did have the patient drink some fluids here. After a few sips, he felt like he did not swallow any more and he began sounding a little hoarse when he would talk as if the fluid was flowing onto his vocal cords. After a few minutes, the fluid seemed to go down and he was able to take some more sips. Clinically he likely has a esophageal stricture or partial obstruction. He did report eating some meatballs yesterday afternoon. They seem to be a little worse today. He was able to keep his pills down last night. I did speak with Dr. Nguyen. He feels the patient could be observed overnight and seen tomorrow by Dr. Huston. Dr. Huston placed his PEG tube in the past and also removed it. The patient's blood work was unremarkable today. He will be seen by the hospitalist for further inpatient evaluation and care. Impression & Plan Dysphagia Discharge Plan Visit Data Chief Complaint: GI Assessment Stated Complaint: DIFFICULTY SWALLOWING/UNABLE TO EAT/DRINK ED Provider: Collin Davis Discharge Problem: Dysphagia Forms Stand Alone Forms: My [facility] [place] [employer] Prescriptions Prescriptions: No Action atorvastatin [Lipitor] 40 mg tablet 40 mg PO HS Qty: 90 RF: 3 aspirin 81 mg tablet,delayed release (DR/EC) 81 mg PO QAM RF: 0 cholecalciferol (vitamin D3) 2,000 unit capsule 50 mcg PO QAM Qty: 100 RF: 0 lubricants Gel 1 ea TOPICAL HS RF: 0 Refresh Optive Evaristo-3 (PF) 0.5-1-0.5 % Dropperette 1 drp OPHTHALMIC (EYE) TID RF: 0 tamsulosin 0.4 mg capsule 0.4 mg PO QDD RF: 0 thiamine HCl (vitamin B1) [Vitamin B-1] 100 mg tablet 100 mg PO QAM RF: 0 folic acid 1 mg tablet 1 mg PO QAM RF: 0 Referrals Referrals: Marcie Wallace CRNP [Primary Care Provider] - Discharge Problem: Dysphagia Qualifiers: Dysphagia type: unspecified Qualified Code(s): R13.10 - Dysphagia, unspecified
[2020-12-08] MEDS ORDERED: SODIUM CHLORIDE 0.9% 500 ML IV SCH (12:00)
[2020-12-08 12:07] LABS: Basophils # (auto) 0.02 K/uL (0-0.2); Basophils % (auto) 0.2 %; Eosinophils % (auto) 0.9 %; Hematocrit (blood only) 40.1 % (42-52); Hemoglobin 13.6 g/dL (14.0-18.0); Immature Granulocytes # (auto) 0.01 K/uL (0.00-0.02); Immature Granulocytes % (auto) 0.1 %; Lymphocytes # (auto) 1.24 K/uL (1.2-3.4); Lymphocytes % (auto) 11.7 %; Mean Corpuscular Hemoglobin 29.3 pg (25-34); Mean Corpuscular Hgb Conc 33.9 g/dL (32-36); Mean Corpuscular Volume 86.4 fL (80-100); Mean Platelet Volume 10.2 fL (7.4-10.4); Monocytes # (auto) 0.86 K/uL (0.11-0.59); Monocytes % (auto) 8.1 %; Neutrophils # (auto) 8.34 K/uL (1.4-6.5); Platelet Count 226 K/uL (130-400); RDW Coefficient of Variation 13.9 % (11.5-14.5); RDW Standard Deviation 43.8 fL (36.4-46.3); Red Blood Count 4.64 M/uL (4.7-6.1); White Blood Count 10.57 K/uL (4.8-10.8)
[2020-12-08 12:26] LABS: Alanine Aminotransferase 25 U/L (12-78); Albumin Level 3.4 gm/dl (3.4-5.0); BUN Creatinine Ratio 16.4 (10-20); Blood Urea Nitrogen 19 mg/dl (7-18); Calcium 9.6 mg/dl (8.5-10.1); Carbon Dioxide 30 mmol/L (21-32); Chloride 103 mmol/L (98-107); Est GFR (African American) 66.2 ml/min; Est GFR (Non-African American) 57.1 ml/min; Glucose 105 mg/dl (70-99); Sodium 135 mmol/L (136-145)
[2020-12-08 12:28] LABS: Albumin Globulin Ratio 0.8 (0.9-2); Alkaline Phosphatase 81 U/L (45-117); Bilirubin,Total 1.1 mg/dl (0.2-1); Globulin 4.4 gm/dl (2.5-4.0); Total Protein 7.8 gm/dl (6.4-8.2)
[2020-12-08 12:58] LABS: Potassium 3.6 mmol/L (3.5-5.1)
--- NOTE | 2020-12-08 13:11 | XRay Report ---
XR chest 1V portable CLINICAL HISTORY: weakness TECHNIQUE: Single frontal radiograph of the chest was obtained. Comparison: Comparison is made to chest one view 10/01/2020 FINDINGS: No lines and tubes are seen. The cardiomediastinal silhouette is normal. The lungs are clear. No evid ence of pleural effusion or pneumothorax. IMPRESSION: No acute chest disease. ACT 112: Negative or not required by law. Electronically signed by: Bob Duke M.D. 12/08/2020 1:09 PM
--- NOTE | 2020-12-08 13:26 | History & Physical Report ---
Date of Service December 08, 2020 Assessment & Plan (1) Dysphagia: Plan: Patient will be admitted for dyspahagia. Patient not being able to tolerate solid foods. will place on full liquid diet. NPO after midnight Will consult Dr. Huston. (2) Severe protein-calorie malnutrition: Plan: Severe weight loss (14kg) since his TAVR. will consult fancy needleworker. (3) Hypertension: Plan: hold meds while NPO (4) BPH (benign prostatic hyperplasia): Plan: hold meds while NPO Hold flomax. (5) S/P TAVR (transcatheter aortic valve replacement): Plan: June 2020 at [facility] [place]. 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 Patient is with his at bedside. She helps with the hsitory. She reports that this past wendesday he was able to tolerate solid foods. However, since then he has had a progressive decline of oral intake. He denies heartburn & reflux. He denies melena, nausea, vomiting, abdominal pain. He denies family history of GI malignancy. He offers no further GI complaints at present. Patient recently had PEG Tube removed and hopes he does not need it reinserted. Allergies Allergy/AdvReac Type Severity Reaction Status Date / Time metoprolol AdvReac Severe Fingers Verified 12/08/20 12:15 turned Blue/ Poor Circulation Home Medications Medication Instructions Recorded Confirmed Type cholecalciferol (vitamin D3) 50 50 mcg PO QAM #100 cap 09/28/18 12/08/20 History mcg (2,000 unit) capsule carboxymethyl 0.5 %-glycerin 1 1 drp OPHTHALMIC (EYE) TID 04/01/20 12/08/20 History %-polysorb 80 0.5 %-PF eye dropperette (Refresh Optive Evaristo-3 (PF)) lubricants topical gel 1 ea TOPICAL HS 04/01/20 12/08/20 History aspirin 81 mg tablet,delayed 81 mg PO QAM 07/12/20 12/08/20 History release tamsulosin 0.4 mg capsule 0.4 mg PO QDD 09/25/20 12/08/20 History atorvastatin 40 mg tablet (Lipitor) 40 mg PO HS #90 tab 10/28/20 12/08/20 Rx folic acid 1 mg tablet 1 mg PO QAM 12/08/20 12/08/20 History thiamine HCl (vitamin B1) 100 mg 100 mg PO QAM 12/08/20 12/08/20 History tablet (Vitamin B-1) Past Med/Surg History Medical History Aortic stenosis Resolved with TAVR. BPH (benign prostatic hyperplasia) Chronic obstructive pulmonary disease emphysema Cognitive decline Hypertension Obesity Osteoarthritis PEG (percutaneous endoscopic gastrostomy) adjustment/replacement/removal had placed due to dehydration and not able to swallow. Pulmonary nodule Stroke mild stroke per MRI incidental finding. Surgical History History of cataract surgery R/L > subsequent laser surgery on eyes S/P TAVR (transcatheter aortic valve replacement) (06/2020) Family History Father Myocardial infarction Cardiac disorder Brother Myocardial infarction Cardiac disorder Hypertension FHx: deafness or hearing loss Sister Hypertension Cardiac disorder Denies family history of Ovarian cancer Prostate cancer Breast cancer Bleeding disorder Colorectal cancer Social History Smoking Status: Former smoker Smoking End Date: 20 years ago.; Second Hand Exposure: No; Do You Dip or Chew Tobacco: No; Tobacco Cessation Education Requested by Patient: No Hx Alcohol Use: No Hx Substance Use: No Preferred Language: Lao Communication Ability: Effective Sql Database Developer Required: No Beliefs That Will Affect Care: None marital status: Current Living Situation: Spouse Current Living Situation Comment: has home therapy in to see for a month current occupational status: retired current occupation: Retired Other Information That Helps Us Care for You: No Feels Safe at Home: Yes Safety Concerns: Feels Safe At This Time caffeine: Yes Dental Care, Regularly: Yes Physical Activity Frequency: Does not Exercise Seatbelt Use: always Sunscreen Use: No Assistive Devices: Cane, Denture - Upper, Hearing Aid - Left and Hearing Aid - Right Assistive Devices Comment: Pt normally uses a cane for ambulating, but did not bring his cane. Review of Systems Review of Systems: The patient denies chest pain, palpitations, shortness of breath, dyspnea on exertion, cough, lower extremity swelling, sore throat, fevers, chills, sweats, nausea, vomiting, diarrhea , constipation, abdominal pain, pelvic pain, blood in urine or stool, dysuria, urinary frequency or urgency, lightheadedness, dizziness, headache, loss of consciousness, rash, abnormal bruising or bleeding, focal weakness, numbness or tingling in arms or legs, generalized arthralgias or myalgias, back or neck pain, or night sweats. The review of systems is otherwise negative other than for that already noted above, and at least 10 systems have been reviewed. Physical Exam Physical Exam: The patient is awake, alert and oriented 3, well developed and well nourished, normocephalic and atraumatic, lying in bed and in no acute distress. HEENT--PERRL, EOMI, mucous membranes and oropharynx dry. Neck--supple. No JVD. No bruits. Thyroid normal, trachea midline, no adenopathy. Heart--normal S1 and S2. No murmurs, rubs or gallops. Lungs--clear bilaterally, no respiratory distress, no accessory muscle use. Abdomen--normal bowel sounds and soft. Nontender. Nondistended, no hernias or masses, no organomegaly. Extremities--no cyanosis or clubbing. No edema. Dermatologic--skin is mildly dry Neurologic--cranial nerves II through XII grossly intact. Rheumatologic--normal range of motion. Psychiatric--normal affect. Results & Data Results & Data ([facility]) Vital Signs (Past 12 Hours) Vital Signs Temp Pulse Resp BP Pulse Ox 12/08/20 11:45 72 20 96 12/08/20 11:16 36.1 C L 93 H 20 140/78 100 PG Care Time/CCT Total # of Minutes Spent Total Time Spent with Patient: Total time spent is greater than 50% in coordination of care (as documented) at patient's floor/unit and/or counseling patient: Coding Level of Care Code INT OBSERVATION CARE 70M LVL 3 Diagnoses Dysphagia R13.10 Dysphagia type: unspecified Severe protein-calorie malnutrition E43 Hypertension I10 BPH (benign prostatic hyperplasia) N40.0 S/P TAVR (transcatheter aortic valve replacement) Z95.2 (1) Dysphagia Dysphagia type: unspecified Qualified Code(s): R13.10 - Dysphagia, unspecified
[2020-12-08] MEDS ORDERED: ACETAMINOPHEN 325 MG TAB PO PRN (13:56)
[2020-12-08] MEDS ORDERED: ARTIFICIAL TEARS OP OINT 3.5 GM TUBE OP PRN ×2 (21:00)
[2020-12-08] MEDS: ARTIFICIAL TEARS OP SCH (21:41)
[2020-12-09 05:55] LABS: Hematocrit (blood only) 37.4 % (42-52); Hemoglobin 12.6 g/dL (14.0-18.0); Mean Corpuscular Hemoglobin 28.8 pg (25-34); Mean Corpuscular Hgb Conc 33.7 g/dL (32-36); Mean Corpuscular Volume 85.6 fL (80-100); Platelet Count 206 K/uL (130-400); RDW Coefficient of Variation 13.8 % (11.5-14.5); RDW Standard Deviation 43.4 fL (36.4-46.3); Red Blood Count 4.37 M/uL (4.7-6.1); White Blood Count 9.68 K/uL (4.8-10.8)
[2020-12-09 06:25] LABS: Calcium 8.9 mg/dl (8.5-10.1); Creatinine Clr Calc Pharmacy 61.9 ml/min; Est GFR (African American) 93.6 ml/min; Est GFR (Non-African American) 80.8 ml/min; Potassium 3.4 mmol/L (3.5-5.1)
[2020-12-09] MEDS: ARTIFICIAL TEARS OP SCH ×3 (07:32→20:15)
[2020-12-09] MEDS ORDERED: INFLUENZA VACCINE HIGH DOSE PF 65+ 0.7 ML SYR IM ONE (08:00)
--- NOTE | 2020-12-09 09:04 | Gastrointestinal Consultation ---
Date of Consultation December 09, 2020 Assessment & Plan (1) Dysphagia: Patient is a 80 y.o. status post PEG removal on 11/04 with recurrent dysphagia and inability to take PO. * NPO for now. * Urgent video swallow and SENIOR C SOFTWARE ENGINEER evaluation today. * Pending results, may need to consider PEG replacement tomorrow although it is noted that patient desires to avoid this if possible. * Continue supportive care. Thank you for allowing us to participating in the care of this mutual patient. If you have any questions or concerns, please do not hesitate to contact us. Supervising Physician Co-Signing Physician Notes I personally evaluated the patient and agree with the findings as documented by NOY Paul Exam: abd: soft, nt, nd Keep NPO, possible PEG placement tomorrow, await speech pathologist report. History of Present Illness Reason for Consultation: Dysphagia, PEG Requesting Physician: Dr. Benson Attending Physician: Bob Steinberg, History of Present Illness I had the pleasure of seeing Henrique Ellis at the bedside today at the request of Dr. Benson. As you know, he is a very pleasant 80 yo male with a PMH of TAVR in June 2020, malnutrition, HTN, HLD, & osteoarthritis admitted to the hospital in September of this year with severe dysphagia and weight loss as well as progressive weakness with PEG tube placement by Dr. Huston and myself. He was discharged to rehab and an adequate recovery of swallowing function. Due to this, he did follow up with Dr. Huston as an outpatient to discuss PEG removal which was performed on 11/04/20. Since that time, he states he has been having no dysphagia and tolerating his diet. Three days ago, however, he developed an abrupt recurrence of dysphagia to both solids and liquids. Due to significant decline in PO intake, he returned to the hospital for further evaluation. Patient denies any odynophagia, pyrosis, abdominal pain and overt GIB symptoms. Prior PEG site is reportedly healing well and is without any pain. No fevers/chills. Patient desires to avoid reinsertion of PEG tube if possible. He has been made NPO and GI consulted in this regard. Allergies Allergy/AdvReac Type Severity Reaction Status Date / Time metoprolol AdvReac Severe Fingers Verified 12/08/20 12:15 turned Blue/ Poor Circulation Home Medications Medication Instructions Recorded Confirmed Type cholecalciferol (vitamin D3) 50 50 mcg PO QAM #100 cap 09/28/18 12/08/20 History mcg (2,000 unit) capsule carboxymethyl 0.5 %-glycerin 1 1 drp OPHTHALMIC (EYE) TID 04/01/20 12/08/20 History %-polysorb 80 0.5 %-PF eye dropperette (Refresh Optive Evaristo-3 (PF)) lubricants topical gel 1 ea TOPICAL HS 04/01/20 12/08/20 History aspirin 81 mg tablet,delayed 81 mg PO QAM 07/12/20 12/08/20 History release tamsulosin 0.4 mg capsule 0.4 mg PO QDD 09/25/20 12/08/20 History atorvastatin 40 mg tablet (Lipitor) 40 mg PO HS #90 tab 10/28/20 12/08/20 Rx folic acid 1 mg tablet 1 mg PO QAM 12/08/20 12/08/20 History thiamine HCl (vitamin B1) 100 mg 100 mg PO QAM 12/08/20 12/08/20 History tablet (Vitamin B-1) Patient History Medical History Aortic stenosis Resolved with TAVR. BPH (benign prostatic hyperplasia) Chronic obstructive pulmonary disease emphysema Cognitive decline Hypertension Obesity Osteoarthritis PEG (percutaneous endoscopic gastrostomy) adjustment/replacement/removal had placed due to dehydration and not able to swallow. Pulmonary nodule Stroke mild stroke per MRI incidental finding. Surgical History History of cataract surgery R/L > subsequent laser surgery on eyes S/P TAVR (transcatheter aortic valve replacement) (06/2020) Family History Father Myocardial infarction Cardiac disorder Brother Myocardial infarction Cardiac disorder Hypertension FHx: deafness or hearing loss Sister Hypertension Cardiac disorder Denies family history of Ovarian cancer Prostate cancer Breast cancer Bleeding disorder Colorectal cancer Social History Smoking Status: Former smoker Smoking End Date: 20 years ago.; Second Hand Exposure: No; Do You Dip or Chew Tobacco: No; Tobacco Cessation Education Requested by Patient: No Hx Alcohol Use: No Hx Substance Use: No Preferred Language: Hebrew Communication Ability: Effective Town Planner Required: No Beliefs That Will Affect Care: None marital status: Current Living Situation: Spouse Current Living Situation Comment: has home therapy in to see for a month current occupational status: retired current occupation: Retired Other Information That Helps Us Care for You: No Feels Safe at Home: Yes Safety Concerns: Feels Safe At This Time caffeine: Yes Dental Care, Regularly: Yes Physical Activity Frequency: Does not Exercise Seatbelt Use: always Sunscreen Use: No Assistive Devices: Walker Assistive Devices Comment: Pt normally uses a cane for ambulating, but did not bring his cane. Review of Systems Constitutional: as per Subjective / HPI Respiratory: no cough and no dyspnea Cardiovascular: no chest pain and no palpitations Gastrointestinal: as per Subjective / HPI Musculoskeletal: no problem reported Neurologic: no confusion Physical Exam Constitutional: WD/WN, vitals as above Eyes: + anicteric sclerae and EOM intact bilaterally Neck: normal visual inspection Respiratory: normal respiratory effort, lungs clear to auscultation Cardiovascular: Rate/Rhythm: regular rate and regular rhythm Gastrointestinal (Abdomen): Inspection/Auscultation: normal bowel sounds and + abdominal surgical incision (with crusted lesion over incision site. No erythema or tenderness.); abdomen not distended Percussion/Palpation: abdomen soft; abdomen nontender Musculoskeletal: Extremities: extremities normal to inspection Psychiatric: A+Ox3, euthymic affect Results & Data ([facility]) Vital Signs (Past 12 Hours) Vital Signs Temp Pulse Resp BP BP Pulse Ox 12/09/20 07:12 36.4 C L 95 H 16 157/84 H 95 12/09/20 00:47 36.6 C 95 H 14 171/82 H 97 Laboratory Results Abnormal lab results 12/08/20 12/08/20 12/09/20 Range/Units 11:49 11:49 05:28 RBC 4.64 L 4.37 L (4.7-6.1) M/uL Hgb 13.6 L 12.6 L (14.0-18.0) g/dL Hct 40.1 L 37.4 L (42-52) % Neut # (Auto) 8.34 H (1.4-6.5) K/uL [place] # (Auto) 0.86 H (0.11-0.59) K/uL Sodium 135 L (136-145) mmol/L Potassium (3.5-5.1) mmol/L Anion Gap 2.0 L (3-11) BUN 19 H (7-18) mg/dl BUN/Creatinine Ratio (10-20) Glucose 105 H (70-99) mg/dl Total Bilirubin 1.1 H (0.2-1) mg/dl Globulin 4.4 H (2.5-4.0) gm/dl Albumin/Globulin Ratio 0.8 L (0.9-2) 12/09/20 Range/Units 05:28 RBC (4.7-6.1) M/uL Hgb (14.0-18.0) g/dL Hct (42-52) % Neut # (Auto) (1.4-6.5) K/uL [place] # (Auto) (0.11-0.59) K/uL Sodium (136-145) mmol/L Potassium 3.4 L (3.5-5.1) mmol/L Anion Gap (3-11) BUN 19 H (7-18) mg/dl BUN/Creatinine Ratio 22.0 H (10-20) Glucose (70-99) mg/dl Total Bilirubin (0.2-1) mg/dl Globulin (2.5-4.0) gm/dl Albumin/Globulin Ratio (0.9-2) PG Care Time/CCT Total # of Minutes Spent Total Time Spent with Patient: Total time spent is greater than 50% in coordination of care (as documented) at patient's floor/unit and/or counseling patient: Coding Level of Care Code 77599 Initial Inpt Care Lvl 3 Diagnoses Dysphagia R13.10 Dysphagia type: unspecified (1) Dysphagia Dysphagia type: unspecified Qualified Code(s): R13.10 - Dysphagia, unspecified
--- NOTE | 2020-12-09 13:39 | Fluoroscopy Report ---
FL video swallow CLINICAL HISTORY: 80 years-old Male with recurrent dysphagia s/p PEG removal. TECHNIQUE: Video fluoroscopic evaluation of swallowing was performed in the AP and lateral projection s by the speech pathology staff. The patient is fed thin liquid barium and barium pudding. FLUOROSCOPY TIME: 2.0 minutes. COMPARISON STUDY: CT soft tissue neck 09/27/2020 FINDINGS: Laryngeal penetration and aspiration with thin liquid barium. There is decreased epiglottic deflection. Aspiration with pudding consistency. Vallecular retention with pudding consistency. IMPRESSION: 1. Multiple consistency aspiration as above. 2. Please see the speech pathologist report for detailed findings and recommendations. ACT 112: Negative or not required by law. Electronically signed by: Justo Armijo M.D. 12/09/2020 1:38 PM
--- NOTE | 2020-12-09 16:55 | Hospitalist Progress Note ---
Date of Service December 09, 2020 Assessment & Plan (1) Dysphagia: Plan: - Pt has long standing issue with dysphagia - was previously admitted and had PEG tube placement. Went to [facility] and was able to tolerate oral intake without needing to go home with tube feeds from there - Video swallow today shows aspiration even with pudding consistency - Keep NPO and will go for PEG tube placement tomorrow - patient agrees to re- insertion - Will get dietary input for plans for feeds upon leaving hospital - will need home services arranged - GI following - appreciate assistance (2) Severe protein-calorie malnutrition: Plan: - Severe weight loss (14kg) since his TAVR. - Gambling Broker consultation (3) BPH (benign prostatic hyperplasia): Plan: - Hold Flomax while NPO (4) S/P TAVR (transcatheter aortic valve replacement): Plan: - June 2020 at [facility] [place] - Holding ASA and Atorvastatin while NPO Plan: - Plan for PEG tube placement tomorrow - likely can initiate feeds on 12/11 or sooner pending GI and monitor for tolerance - will need home arrangements Admission and Anticipated Discharge Date Admission Date: December 08, 2020 Subjective Reports feeling well overall. Was aspirating on video swallow and planning on PEG tube replacement tomorrow. at bedside states she did notice some coughing about a week ago so possibly having issues a bit longer than initially reported however was doing well up until about a week ago. Review of Systems Review of Systems: REVIEW OF SYSTEMS General/Constitutional: Denies fever/chills ENT: + difficulty swallowing (food getting stuck); Denies sore throat Cardiovascular: Denies chest pain, palpitations, edema Respiratory: Denies cough, SOB, wheezing GI: Denies nausea, vomiting, abdominal pain, constipation, diarrhea : Denies dysuria Musculoskeletal: Denies joint/muscle aches Neurologic: Denies dizziness/lightheadedness Results & Data Results & Data ([facility]) Vital Signs (Past 12 Hours) Vital Signs Temp Pulse Resp BP BP Pulse Ox 12/09/20 16:12 36.5 C 70 18 151/75 H 95 12/09/20 07:12 36.4 C L 95 H 16 157/84 H 95 PG Care Time/CCT Total # of Minutes Spent Total Time Spent with Patient: Total time spent is greater than 50% in coordination of care (as documented) at patient's floor/unit and/or counseling patient: Coding Level of Care Code 09569 Subseq Hosp Care Lvl 3 Diagnoses Dysphagia R13.10 Dysphagia type: unspecified Severe protein-calorie malnutrition E43 BPH (benign prostatic hyperplasia) N40.0 S/P TAVR (transcatheter aortic valve replacement) Z95.2 (1) Dysphagia Dysphagia type: unspecified Qualified Code(s): R13.10 - Dysphagia, unspecified
[2020-12-09] MEDS: SODIUM CHLORIDE 0.9% 1000ML 1,000 ML IV SCH (17:01)
--- NOTE | 2020-12-10 04:42 | Electrocardiogram Report ---
Test Reason : Blood Pressure : / mmHG Vent. Rate : 084 BPM Atrial Rate : 084 BPM P-R Int : 160 ms QRS Dur : 082 ms QT Int : 376 ms P-R-T Axes : -16 027 050 degrees QTc Int : 444 ms Poor data quality, interpretation may be adversely affected Normal sinus rhythm Normal ECG When compared with ECG of 27-SEP-2020 07:08, Minimal criteria for Inferior infarct are no longer Present Non-specific change in ST segment in Anterior leads Nonspecific T wave abnormality, improved in Inferior leads Nonspecific T wave abnormality, improved in Anterolateral leads Confirmed by Jefferson Nowak ([id number]) on 12/10/2020 4:41:47 AM Referred By: REFERRED SELF Confirmed By:Jefferson Nowak
[2020-12-10] MEDS: SODIUM CHLORIDE 0.9% 1000ML 1,000 ML IV SCH (05:59)
[2020-12-10] MEDS: ARTIFICIAL TEARS OP SCH ×3 (07:36→21:20)
--- NOTE | 2020-12-10 09:05 | History & Physical Bridge Note ---
Date of Service December 10, 2020 History & Physical Bridge Note I have examined the patient, reviewed the History & Physical and in the interval since the performance of the History & Physical I have noted the following changes of clinical significance: Patient with gross aspiration of all consistencies on video swallow/NETWORK MANAGER eval yesterday. Remains NPO on strict aspiration precautions. PE: A&Ox3. RR. Tachycardic. Lungs CTA bilaterally. Abdomen soft, nontender, nondistended. A/P: Patient with severe oropharyngeal dysfunction and dysphagia to all consistencies. * NPO with strict aspiration precautions. * EGD with PEG replacement today with Dr. Huston. * Further recommendations post-procedure.
--- NOTE | 2020-12-10 09:31 | Anesthesiology Consultation ---
Date of Service December 10, 2020 Assessment & Plan (1) Encounter for pre-operative examination: Chart Review Chart Review: Acceptable Risk for Surgery and Patient NOT seen in Pre Admission Testing Consults Requested none History Surgery Operation Date: 12/10/20 16:30 Proposed Procedures p EGD Gastric Tube Placement - Giuseppe Huston MD Height/Weight Height: 5 ft 7 in Weight: 76.8 kg Allergies Allergy/AdvReac Type Severity Reaction Status Date / Time metoprolol AdvReac Severe Fingers Verified 12/08/20 12:15 turned Blue/ Poor Circulation Medications Home Medications Medication Instructions Recorded Confirmed Last Taken cholecalciferol (vitamin D3) 50 50 mcg PO QAM #100 cap 09/28/18 12/08/20 12/08/20 mcg (2,000 unit) capsule carboxymethyl 0.5 %-glycerin 1 1 drp OPHTHALMIC (EYE) TID 04/01/20 12/08/20 12/08/20 %-polysorb 80 0.5 %-PF eye dropperette (Refresh Optive Evaristo-3 (PF)) lubricants topical gel 1 ea TOPICAL HS 04/01/20 12/08/20 12/07/20 aspirin 81 mg tablet,delayed 81 mg PO QAM 07/12/20 12/08/20 12/08/20 release tamsulosin 0.4 mg capsule 0.4 mg PO QDD 09/25/20 12/08/20 12/07/20 atorvastatin 40 mg tablet (Lipitor) 40 mg PO HS #90 tab 10/28/20 12/08/20 12/07/20 folic acid 1 mg tablet 1 mg PO QAM 12/08/20 12/08/20 12/08/20 thiamine HCl (vitamin B1) 100 mg 100 mg PO QAM 12/08/20 12/08/20 12/08/20 tablet (Vitamin B-1) Active Medications Generic Name Dose Route Start Last Admin Trade Name Freq PRN Reason Stop Dose Admin Artificial Tears 1 drops 12/08/20 21:00 12/10/20 07:36 Artificial Tears OP 01/07/21 20:59 1 drops TID NIDA Administration Sodium Chloride 1,000 mls @ 80 mls/hr 12/09/20 17:00 12/10/20 05:59 Nss 1000ml IV 12/10/20 17:59 80 mls/hr .[id number] NIDA Administration Past Medical History Medical History Aortic stenosis Resolved with TAVR. BPH (benign prostatic hyperplasia) Chronic obstructive pulmonary disease emphysema Cognitive decline Hypertension Obesity Osteoarthritis PEG (percutaneous endoscopic gastrostomy) adjustment/replacement/removal had placed due to dehydration and not able to swallow. Pulmonary nodule Stroke mild stroke per MRI incidental finding. Past Family History Family History Father Myocardial infarction Cardiac disorder Brother Myocardial infarction Cardiac disorder Hypertension FHx: deafness or hearing loss Sister Hypertension Cardiac disorder Denies family history of Ovarian cancer Prostate cancer Breast cancer Bleeding disorder Colorectal cancer Past Surgical History Surgical History History of cataract surgery R/L > subsequent laser surgery on eyes S/P TAVR (transcatheter aortic valve replacement) (06/2020) Social History Smoking Status: Former smoker tobacco type: cigarettes Do You Dip or Chew Tobacco: No Smoking End Date: 20 years ago. Hx Alcohol Use: No Hx Substance Use: No substance use type: does not use Physical Exam Vital Signs Last Vital Signs Temp 97.5 F L 12/10/20 07:54 Pulse 97 H 12/10/20 07:54 Resp 18 12/10/20 07:54 BP 156/78 H 12/10/20 07:54 Pulse Ox 97 12/10/20 07:54 Testing Laboratory Results 12/09/20 05:28 12/09/20 05:28 Electrocardiogram Date: 12/08/20 Findings: + NSR @ (84) Chest X-Ray Date: 12/08/20 Findings: + NAD
[2020-12-10] MEDS ORDERED: ePHEDrine sulfate 50 MG/ML AMP IV PRN (11:04)
[2020-12-10] MEDS ORDERED: ATROPINE SULFATE 0.1 MG/ML 10ML SYR IV PRN (11:04)
[2020-12-10] MEDS ORDERED: ONDANSETRON INJ 2 MG/ML 2 ML VIAL IV PRN (11:04)
[2020-12-10] MEDS ORDERED: LIDOCAINE 2% 2 ML VIAL/AMP(20MG/ML) INFIL ONE (11:10)
[2020-12-10] MEDS ORDERED: PROPOFOL IV EMULSION 10 MG/ML 20 ML VIAL IV ONE (11:10)
[2020-12-10] MEDS ORDERED: KETAMINE 50 MG/5 ML SYRINGE ONE (11:10)
--- NOTE | 2020-12-10 11:45 | GI REPORT ---
Patient Name: Henrique Ellis Procedure Date: 12/10/2020 11:13 AM Date of : 1940 Admit Type: Inpatient Age: 80 Gender: Male Attending MD: Giuseppe Huston MD Procedure: Upper GI endoscopy Providers: Giuseppe uHston MD Referring MD: Referred Self Indications: Place PEG due to dysphagia, Place PEG due to impaired swallowing, Place PEG due to aspiration risk Medicines: Monitored Anesthesia Care Complications: No immediate complications. Estimated blood loss: None. Estimated Blood Loss: Estimated blood loss: none. Procedure: Pre-Anesthesia Assessment: - Prior Anticoagulants: The patient has taken no previous anticoagulant or antiplatelet agents. - ASA Grade Assessment: III - A patient with severe systemic disease. After obtaining informed consent, the endoscope was passed under direct vision. Throughout the procedure, the patient's blood pressure, pulse, and oxygen saturations were monitored continuously. The Endoscope was introduced through the mouth, and advanced to the second part of duodenum. The upper GI endoscopy was accomplished without difficulty. The patient tolerated the procedure well. Findings: The examined esophagus was normal. The entire examined stomach was normal. The patient was placed in the supine position for PEG placement. The stomach was insufflated to appose gastric and abdominal mishra. A site was located in the body of the stomach with excellent transillumination for placement. The abdominal wall was marked and prepped in a sterile manner. The area was anesthetized with 2 mL of 0.5% lidocaine. The trocar needle was introduced through the abdominal wall and into the stomach under direct endoscopic view. A snare was introduced through the endoscope and opened in the gastric lumen. The guide wire was passed through the trocar and into the open snare. The snare was closed around the guide wire. The endoscope and snare were removed, pulling the wire out through the mouth. A skin incision was made at the site of needle insertion. The endoscopically removable 20 Fr Manoj-Cook gastrostomy tube was lubricated. The G-tube was tied to the guide wire and pulled through the mouth and into the stomach. The trocar needle was removed, and the gastrostomy tube was pulled out from the stomach through the skin. The external bumper was attached to the gastrostomy tube, and the tube was cut to remove the guide wire. The final position of the gastrostomy tube was confirmed by relook endoscopy, the distal tip was secured to the bowel wall with a clip, and skin marking noted to be 2 cm at the external bumper. The final tension and compression of the abdominal wall by the PEG tube and external bumper were checked and revealed that the bumper was loose and lightly touching the skin and that the PEG balloon was loose and lightly touching the stomach. The feeding tube was capped, and the tube site cleaned and dressed. Estimated blood loss: none. The duodenal bulb and second portion of the duodenum were normal. Impression: - Normal esophagus. - Normal stomach. - Normal duodenal bulb and second portion of the duodenum. - An endoscopically removable PEG placement was successfully completed. - No specimens collected. Recommendation: - [facility] - Please follow the post-PEG recommendations including: NPO x4 hrs then water today, may use PEG today for meds and water, may use PEG tomorrow for feedings, flush PEG daily with 60 ml water and clean site with soap and water daily and dry thoroughly. Giuseppe Huston MD 12/10/2020 11:44:46 AM This report has been signed electronically. Note Initiated On: 12/10/2020 11:13 AM Number of Addenda: 0 I attest to the content of the Intraoperative Record and orders documented therein, exceptions below {[id number]}
[2020-12-10] MEDS ORDERED: ACETAMINOPHEN 325 MG TAB PEG PRN (15:10)
--- NOTE | 2020-12-10 15:16 | Hospitalist Progress Note ---
Date of Service December 10, 2020 Assessment & Plan (1) Dysphagia: Plan: - Pt has long standing issue with dysphagia - was previously admitted and had PEG tube placement. Went to [facility] and was able to tolerate oral intake without needing to go home with tube feeds from there -- Review of previous PRODUCTS MECHANICAL DESIGN ENGINEER assessment - at that time no overt aspiration but was a risk due to vocal folds not able to fully adduct and his pharynx remained with secretions; mild pharyngeal retention after oral intake of solids despite liquid washes - Video swallow this admission shows aspiration even with pudding consistency - Keep NPO and now S/P PEG tube placement on 12/10 -- Plan for no use x 4 hours from insertion than can add water/meds tonight; can start PEG tube feeds tomorrow -- Appreciate RD recommendations for formula and institution parameters - Could consider repeat MRI to see if any changes from previous imaging to explain changes - could have been silently aspirating prior to presentation? - GI following - appreciate assistance (2) Severe protein-calorie malnutrition: Plan: - Severe weight loss (14kg) since his TAVR. - Sprue Knocker consultation (3) BPH (benign prostatic hyperplasia): Plan: - Can add Flomax to PEG (4) S/P TAVR (transcatheter aortic valve replacement): Plan: - June 2020 at [facility] [place] ASA and Atorvastatin for now given PEG placement Plan: - Can initiate feeds tomorrow and will monitor for tolerance and titrate to goal rate; case management assisting with home needs - Did well with PT/OT and suspect will be able to return home on D/C - Should get PRODUCTS MECHANICAL DESIGN ENGINEER for home as well Admission and Anticipated Discharge Date Admission Date: December 09, 2020 Subjective Pt seen post PEG placement. States he is feeling well but a little sore at the PEG site but tolerated procedure well. Denies other pain. Verbalizes no new complaints Review of Systems Review of Systems: REVIEW OF SYSTEMS General/Constitutional: Denies fever/chills ENT: Denies sore throat Cardiovascular: Denies chest pain, palpitations, edema Respiratory: Denies cough, SOB, wheezing GI: + soreness at PEG site; Denies nausea, constipation, diarrhea : Denies dysuria Musculoskeletal: Denies joint/muscle aches Neurologic: Denies dizziness/lightheadedness Physical Exam Physical Exam: PHYSICAL EXAM General Appearance: WDWN in NAD who is A&O x 3 HEENT: Head is normocephalic/atraumatic; Mucous membranes moist; Pharynx negative for exudate/lesions Neck: Supple; Trachea midline; Neg JVD Heart: RRR with no M/G/R Lungs: CTA in all lung gannon bilaterally; Respirations unlabored; Neg accessory muscle use Abdomen: Soft, non-distended; Positive BS x 4 quadrants; PEG tube placed with dressing applied. Did not remove Extremities: Neg cyanosis or edema Neurological: Speech clear; Gross motor/sensory function intact; Neg focal neurologic deficits Psychiatric: Appropriate mood/affect Skin: Normal Color; Warm/Dry Results & Data Results & Data ([facility]) Vital Signs (Past 12 Hours) Vital Signs Temp Pulse Resp BP BP Pulse Ox 12/10/20 13:18 36.4 C L 60 18 132/79 98 12/10/20 12:40 36.3 C L 64 18 145/73 H 98 12/10/20 12:18 62 18 157/65 H 99 12/10/20 12:03 80 16 158/76 H 93 12/10/20 11:47 74 16 158/73 H 98 12/10/20 10:54 36.4 C L 82 18 168/80 H 99 12/10/20 07:54 36.4 C L 97 H 18 156/78 H 97 PG Care Time/CCT Total # of Minutes Spent Total Time Spent with Patient: Total time spent is greater than 50% in coordination of care (as documented) at patient's floor/unit and/or counseling patient: Coding Level of Care Code 21159 Subseq Hosp Care Lvl 3 Diagnoses Dysphagia R13.10 Dysphagia type: unspecified Severe protein-calorie malnutrition E43 BPH (benign prostatic hyperplasia) N40.0 S/P TAVR (transcatheter aortic valve replacement) Z95.2 (1) Dysphagia Dysphagia type: unspecified Qualified Code(s): R13.10 - Dysphagia, unspecified
[2020-12-10] MEDS: TAMSULOSIN HCL 0.4 MG CAP PEG SCH (21:20)
[2020-12-10] MEDS ORDERED: SODIUM CHLORIDE 0.9% 1000ML 1,000 ML IV SCH (22:00)
[2020-12-11 09:04] LABS: Hematocrit (blood only) 40.6 % (42-52); Hemoglobin 13.5 g/dL (14.0-18.0); Mean Corpuscular Hgb Conc 33.3 g/dL (32-36); Mean Corpuscular Volume 87.1 fL (80-100); Mean Platelet Volume 9.8 fL (7.4-10.4); Platelet Count 234 K/uL (130-400); RDW Coefficient of Variation 13.8 % (11.5-14.5); RDW Standard Deviation 44.2 fL (36.4-46.3); Red Blood Count 4.66 M/uL (4.7-6.1)
[2020-12-11 09:25] LABS: BUN Creatinine Ratio 24.3 (10-20); Calcium 9.4 mg/dl (8.5-10.1); Creatinine Clr Calc Pharmacy 68.3 ml/min; Est GFR (African American) 97.4 ml/min; Est GFR (Non-African American) 84.1 ml/min; Potassium 3.5 mmol/L (3.5-5.1)
[2020-12-11] MEDS: THIAMINE HCL 100 MG TAB PEG SCH (10:22)
[2020-12-11] MEDS: TUBE FEEDING WATER FLUSH PEG SCH ×4 (10:22→21:49)
[2020-12-11] MEDS: FIBERSOURCE HN 1.2 CAL 1000 ML BAG GT SCH (10:22)
[2020-12-11] MEDS: FOLIC ACID 1 MG TAB PEG SCH (10:22)
[2020-12-11] MEDS: ARTIFICIAL TEARS OP SCH ×3 (10:23→21:49)
--- NOTE | 2020-12-11 19:07 | Hospitalist Progress Note ---
Date of Service December 11, 2020 Assessment & Plan (1) Dysphagia: Plan: - Pt has long standing issue with dysphagia - was previously admitted and had PEG tube placement. Went to [facility] and was able to tolerate oral intake without needing to go home with tube feeds from there -- Review of previous PARK INTERPRETER assessment - at that time no overt aspiration but was a risk due to vocal folds not able to fully adduct and his pharynx remained with secretions; mild pharyngeal retention after oral intake of solids despite liquid washes - Video swallow this admission shows aspiration even with pudding consistency - Keep NPO and now S/P PEG tube placement on 12/10 -- Have initiated tube feeds -- Appreciate RD recommendations for formula and institution parameters - Could consider repeat MRI to see if any changes from previous imaging to explain changes - could have been silently aspirating prior to presentation? - GI following - appreciate assistance (2) Severe protein-calorie malnutrition: Plan: - Severe weight loss (14kg) since his TAVR. - Transaction Manager consultation (3) BPH (benign prostatic hyperplasia): Plan: - Flomax to PEG (4) S/P TAVR (transcatheter aortic valve replacement): Plan: - June 2020 at [facility] [place] - Holding ASA and Atorvastatin for now given PEG placement Plan: - Initiated feeds and will monitor for tolerance and titrate to goal rate; case management assisting with home needs - Did well with PT/OT and suspect will be able to return home on D/C - Should get PARK INTERPRETER for home as well Admission and Anticipated Discharge Date Admission Date: December 09, 2020 Subjective Patient reports feeling well. A bit of soreness at the PEG line but doing well. Tolerating feeds without issue at this point. Verbalizes no other complaints at this time Review of Systems Review of Systems: REVIEW OF SYSTEMS General/Constitutional: Denies fever/chills ENT: Denies sore throat; watery eyes without itchiness Cardiovascular: Denies chest pain, palpitations, edema Respiratory: Denies cough, SOB, wheezing GI: + soreness at PEG site; Denies nausea, constipation, diarrhea : Denies dysuria Musculoskeletal: Denies joint/muscle aches Neurologic: Denies dizziness/lightheadedness Physical Exam Physical Exam: PHYSICAL EXAM General Appearance: WDWN in NAD who is A&O x 3 HEENT: Head is normocephalic/atraumatic; Mucous membranes moist; Pharynx negative for exudate/lesions Neck: Supple; Trachea midline; Neg JVD Heart: RRR with no M/G/R Lungs: CTA in all lung gannon bilaterally; Respirations unlabored; Neg accessory muscle use Abdomen: Soft, non-distended; Positive BS x 4 quadrants; PEG tube site clean and dry without drainage or erythema Extremities: Neg cyanosis or edema Neurological: Speech clear; Gross motor/sensory function intact; Neg focal neurologic deficits Psychiatric: Appropriate mood/affect Skin: Normal Color; Warm/Dry Results & Data Results & Data ([facility]) Vital Signs (Past 12 Hours) Vital Signs Temp Pulse Resp BP BP Pulse Ox 12/11/20 16:20 36.6 C 94 H 17 129/71 97 12/11/20 08:02 36.5 C 104 H 17 168/81 H 96 PG Care Time/CCT Total # of Minutes Spent Total Time Spent with Patient: Total time spent is greater than 50% in coordination of care (as documented) at patient's floor/unit and/or counseling patient: Coding Level of Care Code 27464 Subseq Hosp Care Lvl 3 Diagnoses Dysphagia R13.10 Dysphagia type: unspecified Severe protein-calorie malnutrition E43 BPH (benign prostatic hyperplasia) N40.0 S/P TAVR (transcatheter aortic valve replacement) Z95.2 (1) Dysphagia Dysphagia type: unspecified Qualified Code(s): R13.10 - Dysphagia, unspecified
[2020-12-11] MEDS: TAMSULOSIN HCL 0.4 MG CAP PEG SCH (21:49)
[2020-12-12] MEDS: TUBE FEEDING WATER FLUSH PEG SCH ×6 (01:52→22:11)
[2020-12-12] MEDS: FIBERSOURCE HN 1.2 CAL 1000 ML BAG GT SCH (10:23)
[2020-12-12] MEDS: ARTIFICIAL TEARS OP SCH ×3 (10:23→20:14)
[2020-12-12] MEDS: THIAMINE HCL 100 MG TAB PEG SCH (10:23)
[2020-12-12] MEDS: FOLIC ACID 1 MG TAB PEG SCH (10:23)
--- NOTE | 2020-12-12 10:58 | Hospitalist Progress Note ---
Date of Service December 12, 2020 Assessment & Plan (1) Dysphagia: Plan: - Pt has long standing issue with dysphagia - was previously admitted and had PEG tube placement. Went to [facility] and was able to tolerate oral intake without needing to go home with tube feeds from there -- Review of previous CLINICAL RN assessment - at that time no overt aspiration but was a risk due to vocal folds not able to fully adduct and his pharynx remained with secretions; mild pharyngeal retention after oral intake of solids despite liquid washes - Video swallow this admission shows aspiration even with pudding consistency - Keep NPO and now S/P PEG tube placement on 12/10 -- Have initiated tube feeds - working on advancing to goal rate and tolerating well -- Appreciate RD recommendations for formula and institution parameters - will need Rx sent to infusion company and home arrangements made - Could consider repeat MRI brain to see if any changes from previous imaging to explain changes - could have been silently aspirating prior to presentation? - GI following - appreciate assistance (2) Severe protein-calorie malnutrition: Plan: - Severe weight loss (14kg) since his TAVR. - Elementary School Music Teacher consultation (3) BPH (benign prostatic hyperplasia): Plan: - Flomax to PEG (4) S/P TAVR (transcatheter aortic valve replacement): Plan: - [place] [facility] [place]SA and Atorvastatin for now given PEG placement Plan: - Initiated feeds and will monitor for tolerance and titrate to goal rate; case management assisting with home needs - Did well with PT/OT and suspect will be able to return home on D/C - Should get CLINICAL RN for home as well - Possibly arrangements for Wednesday - will update later today Admission and Anticipated Discharge Date Admission Date: December 09, 2020 Subjective Reports feeling well today. Tolerating increase in tube feeds without pain or nausea and vomiting. Still with a bit of soreness at PEG site but improving. Still having some watery eyes more on the R eye. Verbalizes no new complaints at this time. Review of Systems Review of Systems: REVIEW OF SYSTEMS General/Constitutional: Denies fever/chills ENT: Denies sore throat; + watery eyes without itchiness (slightly improved today) Cardiovascular: Denies chest pain, palpitations, edema Respiratory: Denies cough, SOB, wheezing GI: + soreness at PEG site (improving); Denies nausea, constipation, diarrhea : Denies dysuria Musculoskeletal: Denies joint/muscle aches Neurologic: Denies dizziness/lightheadedness Physical Exam Physical Exam: PHYSICAL EXAM General Appearance: WDWN in NAD who is A&O x 3 HEENT: Head is normocephalic/atraumatic; Mucous membranes moist Neck: Supple; Trachea midline; Neg JVD Heart: RRR with no M/G/R Lungs: CTA in all lung gannon bilaterally; Respirations unlabored; Neg accessory muscle use Abdomen: Soft, non-distended; Positive BS x 4 quadrants; PEG tube site clean and dry without drainage or erythema Extremities: Neg cyanosis or edema Neurological: Speech clear; Gross motor/sensory function intact; Neg focal neurologic deficits Psychiatric: Appropriate mood/affect Skin: Normal Color; Warm/Dry Results & Data Results & Data ([facility]) Vital Signs (Past 12 Hours) Vital Signs Temp Pulse Resp BP Pulse Ox 12/12/20 07:45 36.5 C 62 17 158/78 H 95 PG Care Time/CCT Total # of Minutes Spent Total Time Spent with Patient: Total time spent is greater than 50% in coordination of care (as documented) at patient's floor/unit and/or counseling patient: Coding Level of Care Code 20250 Subseq Hosp Care Lvl 3 Diagnoses Dysphagia R13.10 Dysphagia type: unspecified Severe protein-calorie malnutrition E43 BPH (benign prostatic hyperplasia) N40.0 S/P TAVR (transcatheter aortic valve replacement) Z95.2 (1) Dysphagia Dysphagia type: unspecified Qualified Code(s): R13.10 - Dysphagia, unspecified
[2020-12-12] MEDS: TAMSULOSIN HCL 0.4 MG CAP PEG SCH (20:14)
[2020-12-13] MEDS: TUBE FEEDING WATER FLUSH PEG SCH ×6 (02:03→22:48)
[2020-12-13] MEDS: FIBERSOURCE HN 1.2 CAL 1000 ML BAG GT SCH (05:40)
[2020-12-13] MEDS: THIAMINE HCL 100 MG TAB PEG SCH (09:32)
[2020-12-13] MEDS: FOLIC ACID 1 MG TAB PEG SCH (09:32)
[2020-12-13] MEDS: ARTIFICIAL TEARS OP SCH ×3 (09:32→21:54)
--- NOTE | 2020-12-13 11:59 | Hospitalist Progress Note ---
Date of Service December 13, 2020 Assessment & Plan (1) Dysphagia: Plan: - Pt has long standing issue with dysphagia - was previously admitted and had PEG tube placement. Went to [facility] and was able to tolerate oral intake without needing to go home with tube feeds from there -- Review of previous FURNITURE DIPPER assessment - at that time no overt aspiration but was a risk due to vocal folds not able to fully adduct and his pharynx remained with secretions; mild pharyngeal retention after oral intake of solids despite liquid washes - Video swallow this admission shows aspiration even with pudding consistency - Keep NPO and now S/P PEG tube placement on 12/10 -- Have initiated tube feeds - currently at goal rate and tolerating very well -- Appreciate RD recommendations for formula and institution parameters - will need Rx sent to infusion company and home arrangements made - Could consider repeat MRI brain to see if any changes from previous imaging to explain changes - will need to see if he can be flat given feeds as we would not want him to have reflux/aspiration - may be best to perform as outpatient once feeds are stabilized as currently would not change the plan - could have been silently aspirating prior to presentation? - Given the copious secretions and water eyes could see if Loratadine could help control this - GI following - appreciate assistance (2) Severe protein-calorie malnutrition: Plan: - Severe weight loss (14kg) since his TAVR. - Director Home consultation (3) BPH (benign prostatic hyperplasia): Plan: - Flomax to PEG (4) S/P TAVR (transcatheter aortic valve replacement): Plan: [place] [facility] [place] resume ASA and Atorvastatin Plan: - Initiated feeds and so far tolerating well and has been titrated to goal rate; case management assisting with home needs - Did well with PT/OT and suspect will be able to return home on D/C - Should get FURNITURE DIPPER for home as well - Possibly arrangements for Wednesday - will update later today Admission and Anticipated Discharge Date Admission Date: December 09, 2020 Subjective Reports feeling well. Less soreness at the PEG tube site. Moving bowels and urinating without difficulty. Reports he has been ambulating and feels his strength is good. He is now at goal rate for his feeds and no nausea or vomiting. States his eyes are watering a bit less. Having a lot of secretions that he is coughing out. Verbalizes no other complaints at this time. Review of Systems Review of Systems: REVIEW OF SYSTEMS General/Constitutional: Denies fever/chills ENT: Denies sore throat Cardiovascular: Denies chest pain, palpitations, edema Respiratory: Denies cough, SOB, wheezing GI: + soreness at PEG site (nearly resolved); Denies nausea, constipation, diarrhea : Denies dysuria Musculoskeletal: Denies joint/muscle aches Neurologic: Denies dizziness/lightheadedness Physical Exam 2 Physical Exam: PHYSICAL EXAM General Appearance: WDWN in NAD who is A&O x 3 HEENT: Head is normocephalic/atraumatic; Mucous membranes moist Neck: Supple; Trachea midline; Neg JVD Heart: RRR with no M/G/R Lungs: CTA in all lung gannon bilaterally; Respirations unlabored; Neg accessory muscle use Abdomen: Soft, non-distended; Positive BS x 4 quadrants; PEG tube site remains clean and dry without drainage or erythema Extremities: Neg cyanosis or edema Neurological: Speech clear; Gross motor/sensory function intact; Neg focal neurologic deficits Psychiatric: Appropriate mood/affect Skin: Normal Color; Warm/Dry Results & Data Results & Data ([facility]) Vital Signs (Past 12 Hours) Vital Signs Temp Pulse Resp BP Pulse Ox 12/13/20 07:54 36.8 C 72 18 148/77 H 97 PG Care Time/CCT Total # of Minutes Spent Total Time Spent with Patient: Total time spent is greater than 50% in coordination of care (as documented) at patient's floor/unit and/or counseling patient: Coding Level of Care Code 33231 Subseq Hosp Care Lvl 2 Diagnoses Dysphagia R13.10 Dysphagia type: unspecified Severe protein-calorie malnutrition E43 BPH (benign prostatic hyperplasia) N40.0 S/P TAVR (transcatheter aortic valve replacement) Z95.2 (1) Dysphagia Dysphagia type: unspecified Qualified Code(s): R13.10 - Dysphagia, unspecified
[2020-12-13] MEDS: LORATADINE 10 MG TAB PEG SCH (13:01)
[2020-12-13] MEDS: TAMSULOSIN HCL 0.4 MG CAP PEG SCH (21:55)
[2020-12-13] MEDS: ATORVASTATIN 40 MG TAB PEG SCH (21:55)
--- NOTE | 2020-12-13 21:57 | Magnetic Resonance Report ---
MR brain wo con CLINICAL HISTORY: Dysphagia rapidly worsened; brainstem CVA? TECHNIQUE: Multiplanar and multisequence MR images of the brain were obtained without intravenous con trast. Comparison: Comparison is made to MRI brain 09/26/2020 FINDINGS: No abnormal restricted diffusion is identified. Foci of T2 and FLAIR hyperintensity are noted in the paraventricular areas consistent with chronic small vessel ischemic disease. Ex vacuo ventriculomegal y and sulcal enlargement is noted compatible with diffuse encephalomalacia. 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 Prominence of the subarachnoid fluid is noted in the bilateral frontal lobes No extra axial fluid collections are seen. There are no masses, mass effect, or midline shift. The corpus callosum, pituitary gland, and cerebellar tonsils appear grossly unrema rkable. Flow voids of the major intracranial arterial vessels are identified. The imaged portions of the para nasal sinuses, mastoid air cells, and orbits are unremarkable. IMPRESSION: No acute abnormalities. ACT 112: Negative or not required by law. Electronically signed by: Bob Duke M.D. 12/13/2020 9:56 PM
[2020-12-14] MEDS: FIBERSOURCE HN 1.2 CAL 1000 ML BAG GT SCH ×2 (01:39→17:54)
[2020-12-14] MEDS: TUBE FEEDING WATER FLUSH PEG SCH ×6 (01:46→21:26)
[2020-12-14 07:17] LABS: Hemoglobin 12.2 g/dL (14.0-18.0); Mean Corpuscular Hemoglobin 28.2 pg (25-34); Mean Corpuscular Hgb Conc 32.1 g/dL (32-36); Mean Platelet Volume 10.2 fL (7.4-10.4); Platelet Count 242 K/uL (130-400); RDW Coefficient of Variation 13.5 % (11.5-14.5); RDW Standard Deviation 44.1 fL (36.4-46.3); Red Blood Count 4.32 M/uL (4.7-6.1); White Blood Count 7.42 K/uL (4.8-10.8)
[2020-12-14 07:44] LABS: BUN Creatinine Ratio 20.2 (10-20); Creatinine Clr Calc Pharmacy 67.4 ml/min; Est GFR (African American) 96.9 ml/min; Est GFR (Non-African American) 83.6 ml/min; Potassium 3.3 mmol/L (3.5-5.1)
[2020-12-14] MEDS: ARTIFICIAL TEARS OP SCH ×3 (09:58→20:15)
[2020-12-14] MEDS: CHOLECALCIFEROL 1,000 UNITS 25 MCG TAB PEG SCH (09:58)
[2020-12-14] MEDS: THIAMINE HCL 100 MG TAB PEG SCH (09:58)
[2020-12-14] MEDS: FOLIC ACID 1 MG TAB PEG SCH (09:59)
[2020-12-14] MEDS: LORATADINE 10 MG TAB PEG SCH (09:59)
--- NOTE | 2020-12-14 10:51 | Hospitalist Progress Note ---
Date of Service December 14, 2020 Assessment & Plan (1) Dysphagia: Plan: - Pt has long standing issue with dysphagia - was previously admitted and had PEG tube placement. Went to [facility] and was able to tolerate oral intake without needing to go home with tube feeds from there -- Review of previous LEARNING DEVELOPER assessment - at that time no overt aspiration but was at risk due to vocal folds not able to fully adduct and his pharynx remained with secretions; mild pharyngeal retention after oral intake of solids despite liquid washes - Video swallow this admission shows aspiration even with pudding consistency - Keep NPO and now S/P PEG tube placement on 12/10 -- Have initiated tube feeds - currently at goal rate and tolerating very well for continuous feeds -- Will increase feed further this weekend to goal rate of 90 mL/hr to allow 16 hr feeds/off 8 hours -- in time could then consider uping rate to 120 mL/hr to allow for 12 hours on feeds -- Appreciate RD recommendations for formula and institution parameters - karen l need Rx sent to infusion company and home arrangements made - MRI negative for acute findings - 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 - Ems Educator consultation (3) BPH (benign prostatic hyperplasia): Plan: - Flomax to PEG (4) S/P TAVR (transcatheter aortic valve replacement): Plan: - June [address] [facility] [place] - Can resume ASA and Atorvastatin Plan: - Initiated feeds and so far tolerating well and has been titrated to goal rate - will further increase to allow 16 hrs on/8 hours off feeds; case management assisting with home needs - Did well with PT/OT and suspect will be able to return home on D/C - Should get LEARNING DEVELOPER for home as well - Possibly arrangements for Wednesday - will update later today Admission and Anticipated Discharge Date Admission Date: December 09, 2020 Subjective Pt continues to feel well. Tolerating tube feeds. To assist with better timing at home will increase rate and allow for 8 hours off and 16 hour feeds. If he continues to do well with this, at home the rate can be further increased to allow more time off of the pump. MRI was completed with no findings of acute stroke to explain his worsening dysphagia. He does have a old lacunar infarct that was present on previous admission. Review of Systems Review of Systems: REVIEW OF SYSTEMS General/Constitutional: Denies fever/chills ENT: Denies sore throat; + watery eyes but less today; + less oral secretions Cardiovascular: Denies chest pain, palpitations, edema Respiratory: Denies cough, SOB, wheezing GI: Denies nausea, vomiting, abdominal pain, constipation, diarrhea : Denies dysuria Musculoskeletal: Denies joint/muscle aches Neurologic: Denies dizziness/lightheadedness Physical Exam Physical Exam: PHYSICAL EXAM General Appearance: WDWN in NAD who is A&O x 3 HEENT: Head is normocephalic/atraumatic; Mucous membranes moist; [place] without hearing aids but does well with them Neck: Supple; Trachea midline; Neg JVD Heart: RRR with no M/G/R Lungs: CTA in all lung gannon bilaterally; Respirations unlabored; Neg accessory muscle use Abdomen: Soft, non-distended; Positive BS x 4 quadrants; PEG tube site remains clean and dry without drainage or erythema Extremities: Neg cyanosis or edema Neurological: Speech clear; Gross motor/sensory function intact; Neg focal neurologic deficits Psychiatric: Appropriate mood/affect Skin: Normal Color; Warm/Dry Results & Data Results & Data ([facility]) Vital Signs (Past 12 Hours) Vital Signs Temp Pulse Resp BP Pulse Ox 12/14/20 07:41 36.6 C 59 L 18 110/79 96 PG Care Time/CCT Total # of Minutes Spent Total Time Spent with Patient: Total time spent is greater than 50% in coordination of care (as documented) at patient's floor/unit and/or counseling patient: Coding Level of Care Code 95771 Subseq Hosp Care Lvl 3 Diagnoses Dysphagia R13.10 Dysphagia type: unspecified Severe protein-calorie malnutrition E43 BPH (benign prostatic hyperplasia) N40.0 S/P TAVR (transcatheter aortic valve replacement) Z95.2 (1) Dysphagia Dysphagia type: unspecified Qualified Code(s): R13.10 - Dysphagia, unspecified
[2020-12-14] MEDS: ATORVASTATIN 40 MG TAB PEG SCH (20:16)
[2020-12-14] MEDS: TAMSULOSIN HCL 0.4 MG CAP PEG SCH (20:17)
[2020-12-15] MEDS: TUBE FEEDING WATER FLUSH PEG SCH ×6 (01:41→21:40)
[2020-12-15] MEDS: FIBERSOURCE HN 1.2 CAL 1000 ML BAG GT SCH ×2 (03:53→18:13)
--- NOTE | 2020-12-15 09:45 | Hospitalist Progress Note ---
Date of Service December 15, 2020 Assessment & Plan (1) Dysphagia: Plan: - Pt has long standing issue with dysphagia - was previously admitted and had PEG tube placement. Went to [facility] and was able to tolerate oral intake without needing to go home with tube feeds from there then had PEG removed -- Review of previous HAND TOOL FILER assessment (last admission) - at that time no overt aspiration but was at risk due to vocal folds not able to fully adduct and his pharynx remained with secretions; mild pharyngeal retention after oral intake of solids despite liquid washes -- Issues found to have worsened after patient had TAVR earlier in the year - Video swallow this admission shows aspiration even with pudding consistency - Keep NPO and now S/P PEG tube placement on 12/10 - maintain oral hygeine -- Have initiated tube feeds - currently at goal rate and tolerating very well for continuous feeds -- Will increase feed further this weekend to goal rate of 90 mL/hr to allow 16 hr feeds/off 8 hours -- in time could then consider uping rate to 120 mL/hr to allow for 12 hours on feeds -- Appreciate RD recommendations for formula and institution parameters - will give case management Rx sent to infusion company and home arrangements made - MRI negative for acute findings to explain worsening- 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 could arrange outpatient Neurology consultation - GI following - appreciate assistance (2) Severe protein-calorie malnutrition: Plan: - Severe weight loss (14kg) since his TAVR. - Compliance And Control Analyst consultation (3) BPH (benign prostatic hyperplasia): Plan: - Flomax to PEG (4) S/P TAVR (transcatheter aortic valve replacement): Plan: - June 2020 at [facility] [place] - Can resume ASA (changed to a chew for PEG placement) and Atorvastatin Plan: - Initiated feeds and so far tolerating well and has been titrated to goal rate - will further increase to allow 16 hrs on/8 hours off feeds; case management assisting with home needs/Rx signed - Did well with PT/OT and suspect will be able to return home on D/C - Should get HAND TOOL FILER for home as well - Possibly arrangements for Wednesday pending supply delivery to home - will update later today Admission and Anticipated Discharge Date Admission Date: December 09, 2020 Subjective Patient reports feeling well this morning. Verbalizes no other complaints. Overnight was having urinary frequency with small amounts of urine output. Patient reports this does intermittently happen. He reports getting good rest. Plan to continue to increase tube feeds to 90 mL/h to allow for 16 hours of infusion and 8 hours off. Review of Systems Review of Systems: REVIEW OF SYSTEMS General/Constitutional: Denies fever/chills ENT: Denies sore throat; + watery eyes but less today; + less oral secretions Cardiovascular: Denies chest pain, palpitations, edema Respiratory: Denies cough, SOB, wheezing GI: Denies nausea, vomiting, abdominal pain, constipation, diarrhea : Denies dysuria Musculoskeletal: Denies joint/muscle aches Neurologic: Denies dizziness/lightheadedness Physical Exam Physical Exam: PHYSICAL EXAM General Appearance: WDWN in NAD who is A&O x 3 HEENT: Head is normocephalic/atraumatic; Mucous membranes moist no erythema or signs of thrush; [place] without hearing aids but does well with them Neck: Supple; Trachea midline; Neg JVD Heart: RRR with no M/G/R Lungs: CTA in all lung gannon bilaterally; Respirations unlabored; Neg accessory muscle use Abdomen: Soft, non-distended; Positive BS x 4 quadrants; PEG tube site remains clean and dry without drainage or erythema Extremities: Neg cyanosis or edema Neurological: Speech clear; Gross motor/sensory function intact; Neg focal neurologic deficits Psychiatric: Appropriate mood/affect Skin: Normal Color; Warm/Dry Results & Data Results & Data ([facility]) Vital Signs (Past 12 Hours) Vital Signs Temp Pulse Pulse Resp BP Pulse Ox 12/15/20 07:30 36.7 C 74 20 137/74 97 12/14/20 22:13 37.0 C 102 H 18 152/74 H 98 PG Care Time/CCT Total # of Minutes Spent Total Time Spent with Patient: Total time spent is greater than 50% in coordination of care (as documented) at patient's floor/unit and/or counseling patient: Coding Level of Care Code 93524 Subseq Hosp Care Lvl 2 Diagnoses Dysphagia R13.10 Dysphagia type: unspecified Severe protein-calorie malnutrition E43 BPH (benign prostatic hyperplasia) N40.0 S/P TAVR (transcatheter aortic valve replacement) Z95.2 (1) Dysphagia Dysphagia type: unspecified Qualified Code(s): R13.10 - Dysphagia, unspecified
[2020-12-15] MEDS: ARTIFICIAL TEARS OP SCH ×3 (09:51→20:44)
[2020-12-15] MEDS: ASPIRIN 81 MG CHEW PEG SCH (09:51)
[2020-12-15] MEDS: FOLIC ACID 1 MG TAB PEG SCH (09:52)
[2020-12-15] MEDS: LORATADINE 10 MG TAB PEG SCH (09:52)
[2020-12-15] MEDS: CHOLECALCIFEROL 1,000 UNITS 25 MCG TAB PEG SCH (09:52)
[2020-12-15] MEDS: THIAMINE HCL 100 MG TAB PEG SCH (09:52)
[2020-12-15] MEDS: ATORVASTATIN 40 MG TAB PEG SCH (20:43)
[2020-12-15] MEDS: TAMSULOSIN HCL 0.4 MG CAP PEG SCH (20:44)
[2020-12-16] MEDS: FIBERSOURCE HN 1.2 CAL 1000 ML BAG GT SCH ×2 (00:54→17:34)
[2020-12-16] MEDS: TUBE FEEDING WATER FLUSH PEG SCH ×6 (01:23→22:10)
[2020-12-16 06:23] LABS: Hematocrit (blood only) 38.8 % (42-52); Hemoglobin 12.8 g/dL (14.0-18.0); Mean Corpuscular Hemoglobin 28.9 pg (25-34); Mean Corpuscular Volume 87.6 fL (80-100); Mean Platelet Volume 10.4 fL (7.4-10.4); Platelet Count 265 K/uL (130-400); RDW Coefficient of Variation 13.7 % (11.5-14.5); RDW Standard Deviation 44.3 fL (36.4-46.3); Red Blood Count 4.43 M/uL (4.7-6.1); White Blood Count 8.18 K/uL (4.8-10.8)
[2020-12-16 06:57] LABS: BUN Creatinine Ratio 23.1 (10-20); Calcium 9.2 mg/dl (8.5-10.1); Creatinine Clr Calc Pharmacy 52.7 ml/min; Est GFR (African American) 79.9 ml/min; Est GFR (Non-African American) 68.9 ml/min; Potassium 3.8 mmol/L (3.5-5.1)
[2020-12-16] MEDS: CHOLECALCIFEROL 1,000 UNITS 25 MCG TAB PEG SCH (07:13)
[2020-12-16] MEDS: ASPIRIN 81 MG CHEW PEG SCH (07:13)
[2020-12-16] MEDS: FOLIC ACID 1 MG TAB PEG SCH (07:13)
[2020-12-16] MEDS: THIAMINE HCL 100 MG TAB PEG SCH (07:13)
[2020-12-16] MEDS: LORATADINE 10 MG TAB PEG SCH (07:13)
[2020-12-16] MEDS: ARTIFICIAL TEARS OP SCH ×3 (07:14→20:55)
--- NOTE | 2020-12-16 08:54 | Hospitalist Progress Note ---
Date of Service December 16, 2020 Assessment & Plan (1) Dysphagia: Plan: - Pt has long standing issue with dysphagia - was previously admitted and had PEG tube placement. Went to [facility] and was able to tolerate oral intake without needing to go home with tube feeds from there then had PEG removed Review of previous DIE REAMER assessment (last admission) - at that time no overt aspiration but was at risk due to vocal folds not able to fully adduct and his pharynx remained with secretions; mild pharyngeal retention after oral intake of solids despite liquid washes -- Issues found to have worsened after patient had TAVR earlier in the year Video swallow this admission shows aspiration even with pudding consistency GI consulted S/P PEG tube placement on 12/[address] Huston - maintain oral hygeine -Have initiated tube feeds - currently at goal rate and tolerating very well for continuous feeds --> currently at goal rate of 90 mL/hr to allow 16 hr feeds/off 8 hours -- in time could then consider uping rate to 120 mL/hr to allow for 12 hours on feeds -- Appreciate RD recommendations for formula and institution parameters - will give case management Rx sent to infusion company and home arrangements made MRI negative for acute findings to explain worsening- 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 could arrange outpatient Neurology consultation --> spoke with nurse navigator and scheduling for Neuro several months out Also asked to arrange for home DIE REAMER as outpatient Same day home health visit to be arranged for tomorrow (2) Severe protein-calorie malnutrition: Plan: - Severe weight loss (14kg) since his TAVR. - Simplex Printer Installer consultation as above (3) BPH (benign prostatic hyperplasia): Plan: - Flomax to PEG (4) S/P TAVR (transcatheter aortic valve replacement): Plan: - June 2020 at [facility] [place] - Resumed ASA -- changed to a chew for PEG placement), continue Atorvastatin Plan: - Initiated feeds and so far tolerating well and has been titrated to goal rate - rates already increased to allow 16 hrs on/8 hours off feeds; case management assisting with home needs/Rx signed - Did well with PT/OT and suspect will be able to return home on D/C - need to re-eval prior to d/c tomorrow but has been progressing Should get DIE REAMER for home as well Admission and Anticipated Discharge Date Admission Date: December 09, 2020 Subjective Patient evaluated this morning. Doing well. Tolerating feeds without issues -- no pain, nausea, vomiting. Moving his bowels. States he "would like a burger" and then chuckled. Discussed arranging outpatient speech and home health given wishes to return home. He states he was told this morning likely not until Wednesday/Wednesday. No fever, chills, chest pain, shortness of breath, coughing, nausea, vomiting, dysuria at this time. Questions/concerns addressed. Review of Systems Review of Systems: All systems reviewed & are unremarkable except as noted in HPI & below Physical Exam Physical Exam: General Appearance: WD/WN, NAD, pleasant and cooperative male, alert/oriented x 3 HEENT: Head is normocephalic/atraumatic; Mucous membranes slightly dry, no erythema or signs of thrush; [place] Neck: Supple; Trachea midline; Neg JVD Heart: RRR with no M/G/R Lungs: CTA in all lung gannon bilaterally; Respirations unlabored; Neg accessory muscle use Abdomen: Soft, non-distended; Positive BS x 4 quadrants; PEG tube site remains clean and dry without drainage or erythema, non-tender Extremities: Neg cyanosis or edema Neurological: Speech clear; Gross motor/sensory function intact; Neg focal neurologic deficits Psychiatric: Appropriate mood/affect Skin: Normal Color; Warm/Dry Results & Data Results & Data ([facility]) Vital Signs (Past 12 Hours) Vital Signs Temp Pulse Resp BP Pulse Ox 12/16/20 07:10 36.6 C 70 16 111/68 94 12/15/20 22:15 36.5 C 93 H 18 112/71 97 Laboratory Results 12/16/20 12/16/20 Range/Units 05:54 05:54 WBC 8.18 (4.8-10.8) K/uL RBC 4.43 L (4.7-6.1) M/uL Hgb 12.8 L (14.0-18.0) g/dL Hct 38.8 L (42-52) % MCV 87.6 (80-100) fL MCH 28.9 (25-34) pg MCHC 33.0 (32-36) g/dL RDW Std Deviation 44.3 (36.4-46.3) fL RDW Coeff of Driss 13.7 (11.5-14.5) % Plt Count 265 (130-400) K/uL MPV 10.4 (7.4-10.4) fL Sodium 134 L (136-145) mmol/L Potassium 3.8 D (3.5-5.1) mmol/L Chloride 96 L (98-107) mmol/L Carbon Dioxide 35 H (21-32) mmol/L Anion Gap 3.0 (3-11) BUN 23 H (7-18) mg/dl Creatinine 1.01 (0.6-1.4) mg/dl Est Cr Clr Drug Dosing 52.7 ml/min Est GFR ( Amer) 79.9 ml/min Est GFR (Non-Af Amer) 68.9 ml/min BUN/Creatinine Ratio 23.1 H (10-20) Glucose 101 H (70-99) mg/dl Calcium 9.2 (8.5-10.1) mg/dl PG Care Time/CCT Total # of Minutes Spent Total Time Spent with Patient: Total time spent is greater than 50% in coordination of care (as documented) at patient's floor/unit and/or counseling patient: Coding Level of Care Code 23624 Subseq Hosp Care Lvl 2 Diagnoses Dysphagia R13.10 Dysphagia type: unspecified Severe protein-calorie malnutrition E43 BPH (benign prostatic hyperplasia) N40.0 S/P TAVR (transcatheter aortic valve replacement) Z95.2 (1) Dysphagia Dysphagia type: unspecified Qualified Code(s): R13.10 - Dysphagia, unspecified
[2020-12-16] MEDS: TAMSULOSIN HCL 0.4 MG CAP PEG SCH (20:55)
[2020-12-16] MEDS: ATORVASTATIN 40 MG TAB PEG SCH (20:55)
[2020-12-17] MEDS: TUBE FEEDING WATER FLUSH PEG SCH ×3 (02:03→10:00)
[2020-12-17] MEDS: ARTIFICIAL TEARS OP SCH (07:27)
[2020-12-17] MEDS: CHOLECALCIFEROL 1,000 UNITS 25 MCG TAB PEG SCH (07:27)
[2020-12-17] MEDS: FOLIC ACID 1 MG TAB PEG SCH (07:27)
[2020-12-17] MEDS: ASPIRIN 81 MG CHEW PEG SCH (07:28)
[2020-12-17] MEDS: LORATADINE 10 MG TAB PEG SCH (07:28)
[2020-12-17] MEDS: THIAMINE HCL 100 MG TAB PEG SCH (07:28)
[2020-12-17 08:14] LABS: BUN Creatinine Ratio 26.8 (10-20); Calcium 9.3 mg/dl (8.5-10.1); Creatinine Clr Calc Pharmacy 57.3 ml/min; Est GFR (African American) 88.3 ml/min; Est GFR (Non-African American) 76.2 ml/min; Potassium 3.8 mmol/L (3.5-5.1)
--- NOTE | 2020-12-17 08:37 | Discharge Summary ---
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 Patient is with his at bedside. She helps with the hsitory. She reports that this past wendesday he was able to tolerate solid foods. However, since then he has had a progressive decline of oral intake. He denies heartburn & reflux. He denies melena, nausea, vomiting, abdominal pain. He denies family history of GI malignancy. He offers no further GI complaints at present. Patient recently had PEG Tube removed and hopes he does not need it reinserted. Admission Exam Per Admitting Provider The patient is awake, alert and oriented 3, well developed and well nourished, normocephalic and atraumatic, lying in bed and in no acute distress. HEENT--PERRL, EOMI, mucous membranes and oropharynx dry. Neck--supple. No JVD. No bruits. Thyroid normal, trachea midline, no adenopathy. Heart--normal S1 and S2. No murmurs, rubs or gallops. Lungs--clear bilaterally, no respiratory distress, no accessory muscle use. Abdomen--normal bowel sounds and soft. Nontender. Nondistended, no hernias or masses, no organomegaly. Extremities--no cyanosis or clubbing. No edema. Dermatologic--skin is mildly dry Neurologic--cranial nerves II through XII grossly intact. Rheumatologic--normal range of motion. Psychiatric--normal affect. Principal Diagnosis Dysphagia Discharge Exam General Appearance: WD/WN, NAD, pleasant and cooperative male, alert/oriented x 3 HEENT: Head is normocephalic/atraumatic; Mucous membranes slightly dry (improved), no erythema or signs of thrush; [place] Neck: Supple; Trachea midline; Neg JVD Heart: RRR with no M/G/R Lungs: CTA in all lung gannon bilaterally; Respirations unlabored; Neg accessory muscle use Abdomen: Soft, non-distended; Positive BS x 4 quadrants; PEG tube site remains clean and dry without drainage or erythema, non-tender Extremities: Neg cyanosis or edema Neurological: Speech clear; Gross motor/sensory function intact; Neg focal neurologic deficits Psychiatric: Appropriate mood/affect Skin: Normal Color; Warm/Dry Discharge Data Allergies Allergy/AdvReac Type Severity Reaction Status Date / Time metoprolol AdvReac Severe Fingers Verified 12/10/20 11:01 turned Blue/ Poor Circulation Consultations 12/08/20 13:07 ED Decision to Admit Stat 12/08/20 13:56 Consult Gastroenterology Routine Procedures Performed Operation Date: 12/10/20 16:30 Actual Procedures p EGD Gastric Tube Placement - Giuseppe Huston MD Ordered Studies 12/09/20 09:00 FL video swallow Routine 12/13/20 17:56 MR brain wo con Routine Hospital Course (1) Dysphagia: Patient with long standing issue with dysphagia - was previously admitted and had PEG tube placement. Went to [facility] and was able to tolerate oral intake without needing to go home with tube feeds from there then had PEG removed Review of previous [employer] assessment (last admission) - at that time no overt aspiration but was at risk due to vocal folds not able to fully adduct and his pharynx remained with secretions; mild pharyngeal retention after oral intake of solids despite liquid washes Issues found to have worsened after patient had TAVR earlier in the year Video swallow this admission shows aspiration even with pudding consistency GI consulted -- S/P PEG tube placement on 12/[address] Huston Maintain oral hygiene Initiated tube feeds - currently at goal rate and tolerating very well for continuous feeds. Fibersource 1.2kcal --> currently at goal rate of 90 mL/hr to allow 16 hr feeds/off 8 hours. 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 could arrange outpatient Neurology consultation --> spoke with nurse navigator and scheduling for Neuro several months out but to f/u PCP in meantime Also asked CM to arrange for home [employer] DES[employer] as outpatient as well as home heal th/therapy -- same day visit for today (2) Severe protein-calorie malnutrition: Severe weight loss (14kg) since his TAVR. Negative Cutter consultation as above (3) BPH (benign prostatic hyperplasia): Flomax to PEG (4) S/P TAVR (transcatheter aortic valve replacement): June 2020 at [facility] Continue ASA, atorvastatin PEG tube placed by Dr Huston during stay -- started and to continue tube feedings at 90cc/hr Remaining NPO as discussed Outpatient therapy, [employer] and home health Total Time Total Time Spent Total Time Spent (In Minutes): 60 Discharge Plan Discharge Items Patient Disposition: Home - Home Health Services Reason For Visit: DYSPHAGIA Discharge Diagnosis: Dysphagia Goals: You have been hospitalized for an urgent problem which required surgery. During your stay at [facility], we have made an effort to correct the problem that brought you to the hospital while keeping you as comfortable as possible. Surgery and medications were used to bring your condition under control and your discharge instructions will include directions for any medications you should take after leaving the hospital. Please make sure to follow the advice of your surgeon regarding follow up with the surgeon and with your primary care provider. Activity: Resume your previous activity Non-emergency contact: Primary Care Provider, [employer] and Neurologist Call non-emergency contact if: you have any medication questions, your symptoms worsen and your pain is concerning for you Follow-up/Referrals: Marcie Wallace CRNP [Primary Care Provider] - 12/23/20 10:30 am Giuseppe Huston MD [Physician] - Beulah Henry PA-C [Physician Sales Floor Team Member] - 07/11/21 2:00 pm (Unfortunately this is the first available appointment. You have been placed on the cancellation list in case an earlier appointment would become available.) Diet: Nothing by Mouth Diet Comment: Enteral Nutrition -- see below Addtl Attending Provider Instructions: You have been hospitalized for difficulty swallowing. Speech was consulted and studies were performed, which showed increased aspiration and issues with swallowing, and consultation with GI provider was done in order to place your gastric tube. Nutrition was consulted for tube feeding and currently you are at a goal of 90 mL/hr so that you are hooked up for 16 hours and then off for 8 hours. In time, and with follow up with your medical providers, you could consider increasing the rate as tolerated to allow for 12 hours on/12 hours off if rate could be at 120ml/hr to keep up with your nutritional needs. You will need to continue with free water flushes via the PEG daily with 60mL water and clean the site with soap and water daily and dry thoroughly. You should have follow up with Dr Huston in the next month to monitor your progress since tube placement. Please call their office sooner for any issues. Your medications have been changed to be administered via the gastric tube. Your daily Aspirin is now crushable and to be administered through the tube as well. Case management is working to arrange for outpatient speech therapy to help as recommended by speech therapy during your stay. You have already been arranged for home health and they will meet you today. Of note, concerns for underlying Parkinsons and arrangements have been made for follow up with Neurology in the future, however appointment is not until next year as above given you are a new patient to their practice. In the meantime, you should follow up with your primary care provider in the next week to monitor your status post-hospitalization. Please return to the emergency department with any fever, chills, chest pain, shortness of breath, abdominal pain, inability to tolerating tube feedings, or for any other symptoms that are concerning for you. It has been a pleasure being a part of the medical team providing for you while you have been in the hospital. Take care! Pending Studies at Discharge: No Stand-Alone Forms: My [facility] Medications and DC Order Prescriptions: New tamsulosin 0.4 mg Capsule 0.4 mg PEG HS Qty: 30 RF: 0 loratadine [Wal-itin] 10 mg Tablet 10 mg PEG QAM Qty: 14 RF: 0 atorvastatin 40 mg Tablet 40 mg PEG HS Qty: 30 RF: 0 aspirin [Children's Aspirin] 81 mg Tablet,Chewable 81 mg PEG DAILY 30 Days Qty: 30 RF: 0 cholecalciferol (vitamin D3) 25 mcg (1,000 unit) Capsule 2,000 unit PEG QAM Qty: 60 RF: 0 Fibersource HN 0.05 gram- 1.2 kcal/mL Liquid See Rx Instructions .ROUTE .COMPLEX Qty: 6000 RF: 0 thiamine HCl (vitamin B1) [Vitamin B-1] 100 mg Tablet 100 mg PEG QAM Qty: 30 RF: 0 folic acid 1 mg Tablet 1 mg PEG QAM Qty: 30 RF: 0 Tube Feeding Water Flush 125 ml PEG Q4H Qty: 20 RF: 1 Continued lubricants Gel 1 ea TOPICAL HS RF: 0 Refresh Optive Evaristo-3 (PF) 0.5-1-0.5 % Dropperette 1 drp OPHTHALMIC (EYE) TID RF: 0 Discontinued atorvastatin [Lipitor] 40 mg tablet 40 mg PO HS Qty: 90 RF: 3 aspirin 81 mg tablet,delayed release (DR/EC) 81 mg PO QAM RF: 0 cholecalciferol (vitamin D3) 2,000 unit capsule 50 mcg PO QAM Qty: 100 RF: 0 tamsulosin 0.4 mg capsule 0.4 mg PO QDD RF: 0 thiamine HCl (vitamin B1) [Vitamin B-1] 100 mg tablet 100 mg PO QAM RF: 0 folic acid 1 mg tablet 1 mg PO QAM RF: 0 No Action (DME) hospital bed See Rx Instructions .Route .MEDSUPPLY Qty: 1 RF: 0 Discharge Orders: Discharge Order (Routine); Ordered 12/17/20 Ordered By: Vanessa Cui/Other Patient Handouts: Understanding Dysphagia Admission Data Admit Date/Time: 12/09/20 16:48 Attending Provider: Bobby Benson Admit Provider: Bobby Benson Primary Care Provider: Marcie Wallace Other Providers: Bobby Benson ; Giuseppe Huston ; [facility] Other Interventions: Discharge Summary Assessment (RN) Last Done: 12/17/20 11:57 Supervising Physician Co-Signing Physician Notes I reviewed above note and agree with it. During face to face encounter, I performed history of hospital stay and physical examination. D/W APC Vanessa Bustamante. Answered all of the patient's questions. Patient will be discharged on tube feeds due to his dysphagia. Coding Level of Care Code D/C DAY MANAGEMENT >30 MINS Diagnoses Dysphagia R13.10 Dysphagia type: unspecified Severe protein-calorie malnutrition E43 BPH (benign prostatic hyperplasia) N40.0 S/P TAVR (transcatheter aortic valve replacement) Z95.2
--- NOTE | 2020-12-22 09:30 | Anesthesiology Progress Note ---
Date of Service December 10, 2020 Anesthesia Post Procedure Transfer of Care Handoff Completed per policy Notes Mental Status: alert / awake / arousable and participated in evaluation Patient Amnestic to Procedure: Yes Nausea / Vomiting: adequately controlled Pain: adequately controlled Airway Patency, RR, SpO2: stable & adequate BP & HR: stable & adequate Hydration State: stable & adequate Anesthetic Complications: no major complications apparent and Pt Satisfied with anesthetic care Notes: encounter at 12/10/20 @ 12:21
== END 2020-12-17 13:17 | disposition home health service (06) | DRG 391 ==
LOC: ED 11:13 → EDINP 11:13 → SUATTDRO 14:08 → EDINP 19:47 → 3E 20:05 → SUATTDRO 12-09 16:48

== ENCOUNTER 2024-10-23 09:29 | Observation (INO) ==
--- NOTE | 2024-10-23 09:48 | Emergency Department Note ---
Impression & Plan Acute lower GI bleeding, Anemia, Diverticulitis ED Provider Note NAME: CAROL DIAZ AGE: 84 SEX: M : 1940 ARRIVES VIA: Walk-In INFORMANT: Patient, the patient's significant other ED PROVIDER(S): Louis Waggoner DO CHIEF COMPLAINT: GI bleeding HPI: The patient is an 84-year-old male who presented to the emergency department for GI bleeding. The patient's significant other does present with him and gives most of the history. The patient apparently had 1 episode of dark stool yesterday. His significant other thought it might been something he ate however today he started to have GI bleeding and passing clots. The patient denies having abdominal pain or. He has no history of diverticular disease as far as he knows. The patient does take aspirin. He has swallowing difficulties and does have a tube for feeding. He has a history of a stroke. ROS: See above HPI for pertinent positives & negatives. A total of 10 systems reviewed and were otherwise negative. PAST MEDICAL HISTORY: See Below PAST SURGICAL HISTORY: See Below FAMILY HISTORY: See Below SOCIAL HISTORY: See Below HOME MEDICATIONS: See Below ALLERGIES: See Below VITALS: See Below PHYSICAL EXAMINATION: GENERAL: The patient is awake and alert. He is listless appearing but he does not appear to be in pain. EYES: The conjunctivae are clear. The pupils are round and reactive. EARS, NOSE, MOUTH AND THROAT: The nose is without any evidence of any deformity. NECK: The neck is nontender and supple. RESPIRATORY: Normal respiratory effort is noted there is no evidence of wheezing rhonchi or rales CARDIOVASCULAR: Regular rate and rhythm was noted to auscultation. Systolic murmur suggested. GASTROINTESTINAL: The abdomen is soft and nondistended. There is no tenderness guarding or rigidity. Rectal exam revealed gross stool per digital rectal exam. MUSCULOSKELETAL/EXTREMITIES: There is no evidence of gross deformity full range of motion is noted in the hips and shoulders. SKIN: There is no obvious evidence of any rash. No significant pedal edema was noted. NEUROLOGIC: Patient is awake alert and oriented to person place and situation. Strength is symmetric but diminished. MEDICAL DECISION MAKING: The patient is an 84-year-old male who presented to the emergency department because of lower GI bleeding. On rectal exam the patient did have gross blood. His condition does appear to be consistent with a diverticular bleed. I discussed the patient's laboratory and radiographic studies with him. He was started on IV antibiotics for presumed diverticulitis noted on CT. I discussed his condition with the on-call [facility] hospitalist. They have agreed to evaluate the patient in the emergency department for further management and disposition. The patient's hemoglobin is lower than baseline but stable at this time. Vital signs are reassuring. Triage Nursing notes reviewed. Prior medical records reviewed Vital Signs: reviewed and remarkable for no significant abnormalities Differential diagnosis: Diverticulosis, AVM, coagulopathy, colitis, inflammatory bowel disease, malignancy, Gisele-Wilson tear, esophagitis, peptic ulcer disease, variceal bleed, gastritis, epistaxis, fissure, hemorrhoids, as well as other pathologies. ER treatment provided: See below Diagnostics interpreted by me: ECG: EKG was obtained in the emergency department. My interpretation is normal sinus rhythm at 61 bpm. There is no ectopy. There is no acute ST segment abnormalities noted. QTc was 406 ms. Cardiac Monitoring: An order was placed for continuous cardiac monitoring. The monitor shows a rate of 73 bpm with sinus rhythm. Laboratory studies: As stated above and show below. Imaging studies: See below. Radiographic imaging was reviewed by myself Consultation(s): Dr. Suarez was notified about the patient. She will evaluate the patient in the emergency department for further management and disposition. 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 Medical History History of subdural hematoma History of subarachnoid hemorrhage History of COVID-19 11/07/22- hospitalized at [facility]; resolved Stroke mild stroke per MRI incidental finding. Pulmonary nodule Obesity BPH (benign prostatic hyperplasia) Hypertension Aortic stenosis Resolved with TAVR. 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) History of cataract surgery R/L > subsequent laser surgery on eyes Family History Father Myocardial infarction Cardiac disorder Brother Myocardial infarction Cardiac disorder Hypertension FHx: deafness or hearing loss Sister Hypertension Cardiac disorder Other No family history of adverse response to anesthesia No family history of bleeding disorder Denies family history of Ovarian cancer Prostate cancer Breast cancer Bleeding disorder Colorectal cancer Social History Smoking Status: Former smoker Tobacco Type: Cigarettes Age Started Using Tobacco: 14; Age Quit Using Tobacco: 62; packs per day: 3; Second Hand Exposure: No; Do You Dip or Chew Tobacco: No; Hx Alcohol Use: No Hx Substance Use: No Preferred Language: Azeri Communication Ability: Effective Visual Impairment: No Limitations Hearing Ability: Use of Hearing Aid Reference Investigator Required: No Beliefs That Will Affect Care: None marital status: Current Living Situation: Spouse Current Living Situation Comment: has home therapy in to see for a month current occupational status: retired current occupation: Retired How many Children do You have: 3 Feels Safe at Home: Yes Childhood Exposure to Second-Hand Smoke: Yes Diet: Liquid Tube Feedings Diet Comment: tube feeding caffeine: No Dental Care, Regularly: No Physical Activity Frequency: Does not Exercise Seatbelt Use: always Sunscreen Use: No Assistive Devices: Cane, Denture - Upper, Glasses and Hearing Aid - Bilateral Allergies Allergies Allergy/AdvReac Type Severity Reaction Status Date / Time metoprolol AdvReac Severe Fingers Verified 10/23/24 11:59 turned Blue/ Poor Circulation Home Meds Home Medications Medication Instructions Recorded Confirmed lubricants topical gel 1 ea topical HS dry eyes 04/01/20 10/23/24 aspirin 81 mg tablet,delayed 81 mg feeding tube Q OTHER DAY 07/17/22 10/23/24 release doxazosin 1 mg tablet 1 mg feeding tube QAM 10/23/24 10/23/24 folic acid 1 mg tablet 1 mg feeding tube QAM 10/23/24 10/23/24 polyvinyl alcohol 1.4 % eye drops 1 drp ophthalmic (eye) QAM 10/23/24 10/23/24 Previous Rx's Medication Instructions Recorded Tube Feeding Water Flush 125 ml PEG Q4H #20 device 12/17/20 cholecalciferol (vitamin D3) 25 2,000 unit PEG QAM #60 caps 12/17/20 mcg (1,000 unit) capsule hospital bed #1 ea 12/24/20 miscellaneous medical supply 1 ea miscellaneous DAILY Z93.1, 03/31/21 R53.1, G20 #1 ea miscellaneous medical supply 1 ea miscellaneous DAILY Z93.1, 03/31/21 R53.1, G20 #1 ea Flutter Valve #1 ea 04/01/21 alternating pressure pad #1 ea 04/04/21 atorvastatin 40 mg tablet 40 mg PEG HS #90 tabs 03/27/24 carbidopa 25 mg-levodopa 100 mg See Rx Instructions .Route 06/27/24 tablet .COMPLEX #540 tabs Results & Data (ED) Vital Signs Vital Signs - 24 hr 10/23/24 09:31 10/23/24 09:48 10/23/24 09:50 Temperature 36.4 C L Temperature Source Oral Pulse Rate 76 73 Respiratory Rate 20 Respiratory Effort / Characteristics Non-Labored Spontaneous Respiratory Depth Normal Blood Pressure 112/63 Blood Pressure Mean 79 Pulse Oximetry 96 99 Oxygen Delivery Method Room Air Room Air Sepsis Recent Fever Within 48 Hours No Sepsis New/Unexplained Change in Mental Status N/A Sepsis Action Taken by Nursing No Action Required Home Medications Current Medication List: was personally reviewed by me Laboratory Data Attestation: I reviewed the patient's lab results. 10/23/24 09:53 10/23/24 09:53 Lab Results 10/23/24 10/23/24 10/23/24 Range/Units 09:50 09:53 09:59 WBC 6.15 (4.8-10.8) K/ul RBC 4.22 L (4.70-6.10) M/uL Hgb 11.9 L (14.0-18.0) g/dl POC Hgb 12.2 L (14.0-18.0) g/dl Hct 36.6 L (42.0-52.0) % POC Hct 36 L (42-52) % MCV 86.7 (80.0-100.0) fL MCH 28.2 (25.0-34.0) pg MCHC 32.5 (32.0-36.0) g/dL RDW Std Deviation 45.1 (36.4-46.3) fL RDW Coeff of Driss 14.3 (11.5-14.5) % Plt Count 135 (130-400) K/uL MPV 11.6 (9.4-12.4) fL Immature Gran % (Auto) 0.2 % Neut % (Auto) 77.9 % Lymph % (Auto) 12.5 % [place] % (Auto) 8.1 % Eos % (Auto) 1.0 % Baso % (Auto) 0.3 % Neut # (Auto) 4.79 (1.40-6.50) K/uL Lymph # (Auto) 0.77 L (1.20-3.40) K/uL [place] # (Auto) 0.50 (0.11-0.59) K/uL Eos # (Auto) 0.06 (0.00-0.50) K/uL Baso # (Auto) 0.02 (0.00-0.20) K/uL Immature Gran # (Auto) 0.01 (0.01-0.20) K/uL PT 11.2 (9.0-12.0) Seconds INR 1.0 (0.9-1.1) APTT 27 (21-31) Seconds PTT Ratio 1.0 POC Sodium 137 (135-144) mmol/L Sodium 136 (136-145) mmol/L POC Potassium 4.1 (3.3-5.0) mmol/L Potassium 4.1 (3.5-5.1) mmol/L POC Chloride 99 L (101-112) mmol/L Chloride 103 (98-107) mmol/L Carbon Dioxide 29 (21-32) mmol/L POC Total CO2 24 (24-31) mmol/L Anion Gap 4 (3-11) POC Anion Gap 19.0 (16-25) mmol/L POC BUN 29 H (7-18) mg/dl BUN 29 H (6-23) mg/dl Creatinine 0.68 (0.6-1.4) mg/dl POC Creatinine 0.8 (0.6-1.3) mg/dl Est Cr Clr Drug Dosing Not Reportable eGFR 90.52 BUN/Creatinine Ratio 42.6 H (10-20) Glucose 112 H (70-99(Fasting)) mg/dl POC Glucose (other) 110 H (70-99) mg/dl Calcium 8.9 (8.6-10.3) mg/dl POC Ioniz Calcium Mala 1.16 (1.12-1.32) mmol/l Total Bilirubin 0.6 (0.2-1.0) mg/dl AST 34 (13-39) U/L ALT 5 L (7-52) U/L Alkaline Phosphatase 104 (34-104) U/L Troponin I High Sens 12.1 (0-20) pg/ml Total Protein 6.3 (6.0-8.3) gm/dl Albumin 3.5 (3.4-5.0) gm/dl Globulin 2.8 (2.5-4.0) gm/dl Albumin/Globulin Ratio 1.3 (0.9-2) Lipase 25 (11-82) U/L Urine Color Urine Appearance (Clear) Urine pH (4.5-7.5) Ur Specific [place] (1.000-1.030) Urine Protein (Negative) Urine Glucose (UA) (Negative) Urine Ketones (Negative) Urine Blood (Negative) Urine Nitrite (Negative) Urine Bilirubin (Negative) Urine Urobilinogen (Negative) Ur Leukocyte Esterase (Negative) Urine Comment Blood Type B Positive Antibody Screen NEGATIVE 10/23/24 Range/Units 10:55 WBC (4.8-10.8) K/ul RBC (4.70-6.10) M/uL Hgb (14.0-18.0) g/dl POC Hgb (14.0-18.0) g/dl Hct (42.0-52.0) % POC Hct (42-52) % MCV (80.0-100.0) fL MCH (25.0-34.0) pg MCHC (32.0-36.0) g/dL RDW Std Deviation (36.4-46.3) fL RDW Coeff of Driss (11.5-14.5) % Plt Count (130-400) K/uL MPV (9.4-12.4) fL Immature Gran % (Auto) % Neut % (Auto) % Lymph % (Auto) % [place] % (Auto) % Eos % (Auto) % Baso % (Auto) % Neut # (Auto) (1.40-6.50) K/uL Lymph # (Auto) (1.20-3.40) K/uL [place] # (Auto) (0.11-0.59) K/uL Eos # (Auto) (0.00-0.50) K/uL Baso # (Auto) (0.00-0.20) K/uL Immature Gran # (Auto) (0.01-0.20) K/uL PT (9.0-12.0) Seconds INR (0.9-1.1) APTT (21-31) Seconds PTT Ratio POC Sodium (135-144) mmol/L Sodium (136-145) mmol/L POC Potassium (3.3-5.0) mmol/L Potassium (3.5-5.1) mmol/L POC Chloride (101-112) mmol/L Chloride (98-107) mmol/L Carbon Dioxide (21-32) mmol/L POC Total CO2 (24-31) mmol/L Anion Gap (3-11) POC Anion Gap (16-25) mmol/L POC BUN (7-18) mg/dl BUN (6-23) mg/dl Creatinine (0.6-1.4) mg/dl POC Creatinine (0.6-1.3) mg/dl Est Cr Clr Drug Dosing eGFR BUN/Creatinine Ratio (10-20) Glucose (70-99(Fasting)) mg/dl POC Glucose (other) (70-99) mg/dl Calcium (8.6-10.3) mg/dl POC Ioniz Calcium [place] (1.12-1.32) mmol/l Total Bilirubin (0.2-1.0) mg/dl AST (13-39) U/L ALT (7-52) U/L Alkaline Phosphatase (34-104) U/L Troponin I High Sens (0-20) pg/ml Total Protein (6.0-8.3) gm/dl Albumin (3.4-5.0) gm/dl Globulin (2.5-4.0) gm/dl Albumin/Globulin Ratio (0.9-2) Lipase (11-82) U/L Urine Color Yellow Urine Appearance Clear (Clear) Urine pH 7.5 (4.5-7.5) Ur Specific [place] 1.015 (1.000-1.030) Urine Protein Negative (Negative) Urine Glucose (UA) Negative (Negative) Urine Ketones Negative (Negative) Urine Blood Negative (Negative) Urine Nitrite Negative (Negative) Urine Bilirubin Negative (Negative) Urine Urobilinogen Negative (Negative) Ur Leukocyte Esterase Negative (Negative) Urine Comment Blood Type Antibody Screen Administered Medications Discontinued Medications Sodium Chloride (Nss) 500 mls @ 999 mls/hr IV .Q31M STA Stop: 10/23/24 10:14 Last Infusion: 10/23/24 10:41 Dose: Infused Documented By: Admin: 10/23/24 10:08 Dose: 999 mls/hr Documented By: GRANT Pantoprazole Sodium (Protonix) 40 mg in 10 mls @ 5 mls/min IV NOW ONE Stop: 10/23/24 09:45 Last Admin: 10/23/24 10:08 Dose: 5 mls/min Documented By: GRANT Piperacillin Sod/Tazobactam Sod (Zosyn) 4.5 gm in 100 mls @ 200 mls/hr IV NOW ONE; Protocol Stop: 10/23/24 11:33 Last Admin: 10/23/24 11:44 Dose: 200 mls/hr Documented By: MAC Ioversol (Optiray 320 125ml) 118 ml IV ONCE ONE Stop: 10/23/24 10:22 Last Admin: 10/23/24 10:21 Dose: 118 ml Documented By: NIECY Imaging Data Attestation: I personally reviewed and interpreted this imaging study as follows: My Impression: 1 view chest x-ray was obtained in the emergency department. My interpretation is no free air or definite infiltrate, final report below. Radiologist's Impression: Chest X-Ray 10/23/24 09:44 XR chest 1V portable CLINICAL HISTORY: GIB COMPARISON STUDY: 02/13/2024 FINDINGS: Stable aortic valve repair. Stable mild cardiomegaly without pulmonary vascular congestion. Inspiration is shallow. No consolidation or pleural effusion seen. No pneumothorax. IMPRESSION: No acute findings. ACT 112: Negative or not required by law. Electronically signed by: Anshu Zhang M.D. 10/23/2024 10:04 AM Abdomen/Pelvis CTA 10/23/24 10:00 CT ANGIOGRAPHY OF THE ABDOMEN AND PELVIS CLINICAL HISTORY: Lower GI bleed. COMPARISON STUDY: CT of the abdomen and pelvis February 13, 2024. TECHNIQUE: Helical axial images of the abdomen and pelvis were obtained during arterial phase following intravenous injection of 118 cc of Optiray 320 IV. Sagittal and coronal reformats were viewed as well as maximal intensity projections on an independent 3-D workstation. A dose lowering technique was utilized adhering to the principles of ALARA. FINDINGS: Moderate aortoiliac atherosclerotic plaque is present. The caliber of the abdominal aorta is normal. No aneurysm within the abdomen or pelvis is identified. There is mild plaque within the branch vessels without significant stenosis. Arterial phase images of the liver, spleen, adrenal glands and pancreas are unremarkable. There is a 2.4 cm right renal cyst. Bilateral renal parapelvic cysts are incidentally noted. There are gallstones within the gallbladder without evidence for acute cholecystitis. A gastrostomy tube is in place. There is colonic diverticulosis. Minimal inflammation adjacent to the proximal sigmoid colon diverticula is noted. There is no free air. There is no abscess. This is noted on image 237. No intraluminal contrast to suggest active GI bleed by CT is identified. There is a moderate amount of stool within the colon and the rectum. The appendix is normal. There are no fluid collections. There is no lymphadenopathy. IMPRESSION: 1. No intraluminal contrast to suggest active GI bleed by CT. 2. Colonic diverticulosis. Minimal inflammation adjacent to diverticula of the proximal sigmoid colon consistent with mild sigmoid diverticulitis. No free air or abscess. 3. No bowel obstruction. Moderate amount of stool within the colon and rectum. 4. Moderate aortoiliac atherosclerotic plaque. Normal caliber abdominal aorta. No significant stenoses. No aneurysms. 5. Gastrostomy tube in place. 6. Cholelithiasis. ACT 112: Negative or not required by law. Electronically signed by: Gene Paulino M.D. 10/23/2024 10:47 AM Discharge Plan Visit Data Chief Complaint: Rectal Bleed Stated Complaint: ANAL BLEEDING, NBM ED Provider: Louis Waggoner Discharge Problem: Acute lower GI bleeding, Anemia, Diverticulitis Patient Disposition: Being Evaluated by Hospitalist Condition: Good Forms Stand Alone Forms: [employer] Prescriptions Prescriptions: No Action (DME) hospital bed See Rx Instructions .Route .MEDSUPPLY Qty: 1 0RF Rx Instructions: As directed miscellaneous medical supply Misc 1 ea miscellaneous DAILY Qty: 1 0RF Rx Instructions: HOSPITAL BED; ELECTRONIC HEIGHT ADJUSTMENT FOR HEAD AND FEET DX: Z93.1, R53.1, G20 miscellaneous medical supply Misc 1 ea miscellaneous DAILY Qty: 1 0RF Rx Instructions: PRESSURE MATTRESS DX: Z93.1, R53.1, G20 (DME) Flutter Valve Device See Rx Instructions .Route Qty: 1 0RF Rx Instructions: PLEASE USE DIRECTED atorvastatin 40 mg tablet 40 mg PEG HS Qty: 90 3RF carbidopa-levodopa 25-100 mg tablet See Rx Instructions .ROUTE .COMPLEX Qty: 540 3RF Dose Instruction: TAKE 1 TAB PER FEEDING TUBE 3 TIMES A DAY Rx Instructions: TAKE 2 TABS PER FEEDING TUBE 3 TIMES A DAY. (DME) alternating pressure pad See Rx Instructions .Route .MEDSUPPLY Qty: 1 0RF Rx Instructions: As directed aspirin 81 mg tablet,delayed release (DR/EC) 81 mg feeding tube Q OTHER DAY Rx Instructions: 81 mg via feeding tube every other day; lubricants Gel 1 ea TOPICAL HS cholecalciferol (vitamin D3) 25 mcg (1,000 unit) Capsule 2,000 unit PEG QAM Qty: 60 0RF Tube Feeding Water Flush 125 ml PEG Q4H Qty: 20 1RF polyvinyl alcohol [Dry Eyes] 1.4 % Drops 1 drp OPHTHALMIC (EYE) QAM doxazosin 1 mg tablet 1 mg feeding tube QAM folic acid 1 mg tablet 1 mg feeding tube QAM Referrals Referrals: Marcie Wallace CRNP [Primary Care Provider] -
--- NOTE | 2024-10-23 10:06 | XRay Report ---
XR chest 1V portable CLINICAL HISTORY: GIB COMPARISON STUDY: 02/13/2024 FINDINGS: Stable aortic valve repair. Stable mild cardiomegaly without pulmonary vascular congestion. Inspiration is shallow. No consolidation or pleural effusion seen. No pneumothorax. IMPRESSION: No acute findings. ACT 112: Negative or not required by law. Electronically signed by: Anshu Zhang M.D. 10/23/2024 10:04 AM
[2024-10-23] MEDS: SODIUM CHLORIDE 0.9% 500 ML IV STA (10:08)
[2024-10-23] MEDS: PANTOprazole 40 MG/10 ML SYR IV ONE (10:08)
[2024-10-23 10:15] LABS: Hematocrit (blood only) 36.6 % (42.0-52.0); Hemoglobin 11.9 g/dl (14.0-18.0); Immature Granulocytes # (auto) 0.01 K/uL (0.01-0.20); Immature Granulocytes % (auto) 0.2 %; Mean Corpuscular Hemoglobin 28.2 pg (25.0-34.0); Mean Corpuscular Volume 86.7 fL (80.0-100.0); Platelet Count 135 K/uL (130-400); RDW Standard Deviation 45.1 fL (36.4-46.3); Red Blood Count 4.22 M/uL (4.70-6.10); White Blood Count 6.15 K/ul (4.8-10.8)
[2024-10-23] MEDS: OPTIRAY 320 125ml IV ONE (10:21)
[2024-10-23 10:30] LABS: Alanine Aminotransferase 5 U/L (7-52); Albumin Globulin Ratio 1.3 (0.9-2); Albumin Level 3.5 gm/dl (3.4-5.0); Alkaline Phosphatase 104 U/L (34-104); Anion Gap 4 (3-11); Bilirubin,Total 0.6 mg/dl (0.2-1.0); Blood Urea Nitrogen 29 mg/dl (6-23); Calcium 8.9 mg/dl (8.6-10.3); Carbon Dioxide 29 mmol/L (21-32); Chloride 103 mmol/L (98-107); Globulin 2.8 gm/dl (2.5-4.0); Glucose 112 mg/dl (70-99(Fasting)); Lipase 25 U/L (11-82); Potassium 4.1 mmol/L (3.5-5.1); Sodium 136 mmol/L (136-145); Total Protein 6.3 gm/dl (6.0-8.3)
--- NOTE | 2024-10-23 10:48 | CT Scan Report ---
CT ANGIOGRAPHY OF THE ABDOMEN AND PELVIS CLINICAL HISTORY: Lower GI bleed. COMPARISON STUDY: CT of the abdomen and pelvis February 13, 2024. TECHNIQUE: Helical axial images of the abdomen and pelvis were obtained during arterial phase followi ng intravenous injection of 118 cc of Optiray 320 IV. Sagittal and coronal reformats were viewed as w ell as maximal intensity projections on an independent 3-D workstation. A dose lowering technique was utilized adhering to the principles of ALARA. FINDINGS: Moderate aortoiliac atherosclerotic plaque is present. The caliber of the abdominal aorta i s normal. No aneurysm within the abdomen or pelvis is identified. There is mild plaque within the [facility] vessels without significant stenosis. Arterial phase images of the liver, spleen, adrenal glands and pancreas are unremarkable. There is a 2.4 cm right renal cyst. Bilateral renal parapelvic cysts a re incidentally noted. There are gallstones within the gallbladder without evidence for acute cholecy stitis. A gastrostomy tube is in place. There is colonic diverticulosis. Minimal inflammation adjacen t to the proximal sigmoid colon diverticula is noted. There is no free air. There is no abscess. This is noted on image 237. No intraluminal contrast to suggest active GI bleed by CT is identified. Ther e is a moderate amount of stool within the colon and the rectum. The appendix is normal. There are no fluid collections. There is no lymphadenopathy. IMPRESSION: 1. No intraluminal contrast to suggest active GI bleed by CT. 2. Colonic diverticulosis. Minimal inflammation adjacent to diverticula of the proximal sigmoid colon consistent with mild sigmoid diverticulitis. No free air or abscess. 3. No bowel obstruction. Moderate amount of stool within the colon and rectum. 4. Moderate aortoiliac atherosclerotic plaque. Normal caliber abdominal aorta. No significant stenose s. No aneurysms. 5. Gastrostomy tube in place. 6. Cholelithiasis. ACT 112: Negative or not required by law. Electronically signed by: Gene Paulino M.D. 10/23/2024 10:47 AM
[2024-10-23 10:50] LABS: INR 1.0 (0.9-1.1); Partial Thromboplastin Time 27 Seconds (21-31); Prothrombin Time 11.2 Seconds (9.0-12.0)
[2024-10-23 11:10] LABS: Appearance Urine Clear (Clear); Glucose Urine UA Negative (Negative)
--- NOTE | 2024-10-23 11:34 | History & Physical Report ---
Date of Service October 23, 2024 Assessment & Plan (1) Diverticulitis: (2) Acute lower GI bleeding: (3) Atypical parkinsonism: (4) Parkinson's disease dementia: (5) Gastrostomy tube in place: (6) BPH (benign prostatic hyperplasia): Plan 84 y/o man with atypical parkinson's resulting in dysphagia requiring g-tube and on aspirin for history of stroke. His brought him in with [facility]. 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 Based on my interaction he has significant Parkinson's dementia. # Dependent on g-tube for feeding and meds -hold TF -meds per tube -continue carbidopa-levodopa # Hx CVA # Aortic stenosis s/p TAVR # HTN - hold ASA, continue statin - continue lisinopril # BPH - continue doxazosin, monitor for urinary retention DVT ppx - SCDs only since bleeding PT/OT eval I updated his at the bedside on the plan of care History of Present Illness Chief Complaint: rectal bleeding Primary Care Provider: NOY Malin 84 y/o man with atypical parkinson's resulting in dysphagia requiring g-tube and on aspirin for history of stroke. His brought him in with [facility]. She provides the majority of history because of his cognitive and communication challenges. Yesterday he had a dark stool which she attrib to eating chocolate. This very early started to pass luis fernando blood with clots. The blood was all over the place so she isn't sure of quantitiy, but doesn't sound like severe amount. Luis Fernando blood on rectal exam. Rectal was nontender and no abdominal pain or tenderness. Denies any fever/chills, abdominal or rectal pain, back pain, nausea/vomiting or diarrhea. No shortness of breath or CP. She says if he eats/drinks he aspirates. CTA in ED with no active bleeding, mild sigmoid diverticulitis Pip-tazo started in ED Allergies Allergy/AdvReac Type Severity Reaction Status Date / Time metoprolol AdvReac Severe Fingers Verified 10/23/24 11:59 turned Blue/ Poor Circulation Home Medications Medication Instructions Recorded Confirmed Type lubricants topical gel 1 ea topical HS dry eyes 04/01/20 10/23/24 History Tube Feeding Water Flush 125 ml PEG Q4H #20 device 12/17/20 10/23/24 Rx cholecalciferol (vitamin D3) 25 2,000 unit PEG QAM #60 caps 12/17/20 10/23/24 Rx mcg (1,000 unit) capsule hospital bed #1 ea 12/24/20 09/20/24 Rx miscellaneous medical supply 1 ea miscellaneous DAILY Z93.1, 03/31/21 10/23/24 Rx R53.1, G20 #1 ea miscellaneous medical supply 1 ea miscellaneous DAILY Z93.1, 03/31/21 10/23/24 Rx R53.1, G20 #1 ea Flutter Valve #1 ea 04/01/21 09/20/24 Rx alternating pressure pad #1 ea 04/04/21 09/20/24 Rx aspirin 81 mg tablet,delayed 81 mg feeding tube Q OTHER DAY 07/17/22 10/23/24 History release atorvastatin 40 mg tablet 40 mg PEG HS #90 tabs 03/27/24 10/23/24 Rx carbidopa 25 mg-levodopa 100 mg See Rx Instructions .Route 06/27/24 10/23/24 Rx tablet .COMPLEX #540 tabs doxazosin 1 mg tablet 1 mg feeding tube QAM 10/23/24 10/23/24 History folic acid 1 mg tablet 1 mg feeding tube QA 10/23/24 10/23/24 History polyvinyl alcohol 1.4 % eye drops 1 drp ophthalmic (eye) QA 10/23/24 10/23/24 History Past Med/Surg History Problem List (Updated 10/23/24 @ 17:44 by Monserrat Suarez MD) Gastrostomy tube in place Parkinson's disease dementia Diverticulitis (Acute) Anemia (Acute) Acute lower GI bleeding (Acute) Parkinson disease Nonocclusive coronary atherosclerosis of [place] coronary artery At risk for aspiration pneumonia Atypical parkinsonism (Acute) Dysphagia (Acute) Lung nodule < 6cm on CT [place] stroke without late effect Dysphagia Urinary frequency (Chronic) BPH (benign prostatic hyperplasia) (Chronic) Hypertension (Chronic) Degenerative arthritis of knee, 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 Medical History History of subdural hematoma History of subarachnoid hemorrhage History of COVID-19 11/07/22- hospitalized at [facility]; resolved Stroke mild stroke per MRI incidental finding. Pulmonary nodule Obesity BPH (benign prostatic hyperplasia) Hypertension Aortic stenosis Resolved with TAVR. 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) History of cataract surgery R/L > subsequent laser surgery on eyes Family History Father Myocardial infarction Cardiac disorder Brother Myocardial infarction Cardiac disorder Hypertension FHx: deafness or hearing loss Sister Hypertension Cardiac disorder Other No family history of adverse response to anesthesia No family history of bleeding disorder Denies family history of Ovarian cancer Prostate cancer Breast cancer Bleeding disorder Colorectal cancer Social History Smoking Status: Former smoker Tobacco Type: Cigarettes Age Started Using Tobacco: 14; Age Quit Using Tobacco: 62; packs per day: 3; Second Hand Exposure: No; Do You Dip or Chew Tobacco: No; Hx Alcohol Use: No Hx Substance Use: No Preferred Language: Tajik Communication Ability: Effective Visual Impairment: No Limitations Hearing Ability: Use of Hearing Aid [employer]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 Beliefs That Will Affect Care: None marital status: Current Living Situation: Spouse Current Living Situation Comment: has home therapy in to see for a month current occupational status: retired current occupation: Retired How many Children do You have: 3 Feels Safe at Home: Yes Childhood Exposure to Second-Hand Smoke: Yes Diet: Liquid Tube Feedings Diet Comment: tube feeding caffeine: No Dental Care, Regularly: No Physical Activity Frequency: Does not Exercise Seatbelt Use: always Sunscreen Use: No Assistive Devices: Cane, Denture - Upper, Glasses and Hearing Aid - Bilateral Review of Systems 2 Review of Systems: All systems reviewed & are unremarkable except as noted in HPI & below Physical Exam 2 Physical Exam: Last 24h vitals reviewed GEN: no acute distress, sitting in bed, elderly HEENT: pupils equal, sclerae anicteric, moist MM RESP: normal WOB, CTAB CV: reg no mrg ABD: soft/nt/nd +BT : no farmer SKIN: warm and dry, no generalized rashes NEURO: AOx person. Paucity of verbal replies and cannot narrate history. Can answer direct simple questions and follow commands. Masked facies and bradykinesia. No tremor. Leadpipe rigidity with mild cogwheeling RUE. LUE with only slightly increased tone. Results & Data Results & Data Vital Signs (Past 12 Hours) Vital Signs Temp Pulse Resp BP Pulse Ox O2 Del Method 10/23/24 09:50 99 Room Air 10/23/24 09:48 73 10/23/24 09:31 36.4 C L 76 20 112/63 96 Room Air Laboratory Results 10/23/24 09:53 10/23/24 09:53 A little more anemic than normal - baseline Hg 13-14, now 12 Coags normal LFT and lipase normal CTA - no acute bleeding, mild sigmoid diverticulitis EKG - personally reviewed and interpreted - sinus, poss inferior Qs only [place] in avf lots of baseline artifact, LVH PG Care Time/CCT Total # of Minutes Spent Total Time Spent with Patient: Total time spent is greater than 50% in coordination of care (as documented) at patient's floor/unit and/or counseling patient: Coding Level of Care Code 89624 INT INP/OBS CARE 3/75MIN Diagnoses Diverticulitis K57.92 Acute lower GI bleeding K92.2 Atypical parkinsonism G20 Parkinson's disease dementia G20.A1; F02.[address] Z93.1 BPH (benign prostatic hyperplasia) N40.0
[2024-10-23] MEDS: PIPERACILLIN/TAZOBACTAM 4.5 GM/100 ML BAG IV ONE (11:44)
--- NOTE | 2024-10-23 12:48 | Electrocardiogram Report ---
Test Reason : Blood Pressure : */* mmHG Vent. Rate : 61 BPM Atrial Rate : 61 BPM P-R Int : 180 ms QRS Dur : 76 ms QT Int : 404 ms P-R-T Axes : -22 -12 -20 degrees QTcB Int : 406 ms Normal sinus rhythm with sinus arrhythmia Minimal voltage criteria for LVH, may be normal variant ( R in aVL ) Inferior infarct , age undetermined Abnormal ECG When compared with ECG of 13-Feb-2024 16:20, Inferior infarct is now Present T wave inversion now evident in Inferior leads Confirmed by Louis Gutierrez ([id number]) on 10/23/2024 12:48:06 PM Referred By: REFERRED SELF Confirmed By: Louis Gutierrez
[2024-10-23] MEDS ORDERED: ONDANSETRON INJ 2 MG/ML 2 ML VIAL IV PRN (19:56)
[2024-10-23] MEDS ORDERED: POLYETHYLENE (MIRALAX) 17 GM PACK GT PRN (19:56)
[2024-10-23] MEDS ORDERED: ACETAMINOPHEN 325 MG TAB PEG PRN (19:56)
[2024-10-23] MEDS: TUBE FEEDING WATER FLUSH PEG SCH (20:20)
[2024-10-23] MEDS: PIPERACILLIN/TAZOBACTAM 4.5 GM/100 ML BAG IV SCH (21:15)
[2024-10-23] MEDS: ATORVASTATIN 40 MG TAB PEG SCH (22:25)
[2024-10-23] MEDS: CARBIDOPA/LEVODOPA 25/100MG TAB GT SCH (22:25)
[2024-10-23] MEDS ORDERED: Nursing to Pharmacy Communication SCH (23:00)
[2024-10-23] MEDS: D5W AND 1/2NSS + 20MEQ KCL 20 MEQ/1,000 ML BAG IV SCH (23:03)
[2024-10-24 02:26] LABS: Hematocrit (blood only) 34.1 % (42.0-52.0); Hemoglobin 10.7 g/dl (14.0-18.0); Mean Corpuscular Hemoglobin 27.4 pg (25.0-34.0); Mean Corpuscular Volume 87.2 fL (80.0-100.0); Platelet Count 126 K/uL (130-400); RDW Standard Deviation 46.3 fL (36.4-46.3); Red Blood Count 3.91 M/uL (4.70-6.10); White Blood Count 6.90 K/ul (4.8-10.8)
[2024-10-24 02:38] LABS: Anion Gap 1.0 (3-11); Blood Urea Nitrogen 25.0 mg/dl (6-23); Calcium 8.5 mg/dl (8.6-10.3); Carbon Dioxide 29.0 mmol/L (21-32); Chloride 106.0 mmol/L (98-107); Creatinine Clr Calc Pharmacy 66.7 ml/min; Glucose 123.0 mg/dl (70-99(Fasting)); Potassium 3.9 mmol/L (3.5-5.1); Sodium 136.0 mmol/L (136-145)
[2024-10-24] MEDS: THIAMINE HCL 100 MG TAB PEG SCH (09:13)
[2024-10-24] MEDS: DOXAZOSIN MESYLATE 1 MG TAB GT SCH (09:13)
--- NOTE | 2024-10-24 18:58 | Hospitalist Progress Note ---
Date of Service October 24, 2024 Assessment & Plan (1) Diverticulitis: (2) Acute lower GI bleeding: (3) Atypical parkinsonism: (4) Parkinson's disease dementia: (5) Gastrostomy tube in place: (6) BPH (benign prostatic hyperplasia): Plan 84 y/o man with atypical parkinson's resulting in dysphagia requiring g-tube and on aspirin for history of stroke. His brought him in with [facility]. Based on CTA done in ED, source is probably sigmoid diverticulitis # Acute lower GI bleeding likely caused by diverticulitis or ischemic colitis # Mild acute sigmoid diverticulitis based on CT also could be mild ischemic colitis -continue pip-tazo and monitor abdominal exam - remains benign -hold tube feeding, cont IVF. 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 Based on my interaction he has significant Parkinson's dementia. # Dependent on g-tube for feeding and meds -hold TF -meds per tube -continue carbidopa-levodopa # Hx CVA # Aortic stenosis s/p TAVR # HTN - hold ASA, continue statin - continue lisinopril # BPH - continue doxazosin, monitor for urinary retention DVT ppx - SCDs only since bleeding PT/OT eval - rec rehab stay, currently below his functional baseline I updated his at the bedside on the plan of care 10/24 Admission and Anticipated Discharge Date Admission Date: October 23, 2024 Subjective No abdominal pain. at bedside reports bloody BMs overnight No nausea Hearing aids out of battery very hard to communicate with him Physical Exam 2 Physical Exam: Last 24h vitals reviewed GEN: awake in bed HEENT: pupils equal, sclerae anicteric, moist MM RESP: normal WOB, CTAB CV: reg no mrg ABD: soft/nt/nd +BT : no farmer SKIN: warm and dry, no generalized rashes NEURO: AOx person. Paucity of verbal replies and cannot narrate history. Extremely ANGOON Masked facies and bradykinesia. No tremor. Results & Data Results & Data Vital Signs (Past 12 Hours) Vital Signs Temp Pulse Resp BP Pulse Ox O2 Del Method 10/24/24 15:05 36.3 C L 62 15 137/83 97 Room Air 10/24/24 09:00 Room Air 10/24/24 07:45 36.5 C 70 16 132/80 95 Room Air Laboratory Results 10/24/24 07:52 10/24/24 02:05 PG Care Time/CCT Total # of Minutes Spent Total Time Spent with Patient: Total time spent is greater than 50% in coordination of care (as documented) at patient's floor/unit and/or counseling patient: Coding Level of Care Code 89690 SUB INP/OBS CARE 3/50MIN Diagnoses Diverticulitis K57.92 Acute lower GI bleeding K92.2 Atypical parkinsonism G20 Parkinson's disease dementia G20.A1; F02.[address] Z93.1 BPH (benign prostatic hyperplasia) N40.0
[2024-10-25] MEDS ORDERED: Nursing to Pharmacy Communication SCH (05:30)
[2024-10-25 06:48] LABS: Anion Gap 3.0 (3-11); Blood Urea Nitrogen 14.0 mg/dl (6-23); Calcium 8.5 mg/dl (8.6-10.3); Carbon Dioxide 27.0 mmol/L (21-32); Chloride 107.0 mmol/L (98-107); Creatinine Clr Calc Pharmacy 66.7 ml/min; Glucose 135.0 mg/dl (70-99(Fasting)); Potassium 3.9 mmol/L (3.5-5.1); Sodium 137.0 mmol/L (136-145)
[2024-10-25] MEDS: PEPTAMEN 1.5 CAL 1,000 ML BAG PEG SCH (11:24)
--- NOTE | 2024-10-25 16:11 | Hospitalist Progress Note ---
Date of Service October 25, 2024 Assessment & Plan (1) Diverticulitis: (2) Acute lower GI bleeding: (3) Atypical parkinsonism: (4) Parkinson's disease dementia: (5) Gastrostomy tube in place: (6) BPH (benign prostatic hyperplasia): Plan 84 y/o man with atypical parkinson's resulting in dysphagia requiring g-tube and on aspirin for history of stroke. His brought him in with [facility]. Based on CTA done in ED, source is probably sigmoid diverticulitis # Acute lower GI bleeding likely caused by diverticulitis or ischemic colitis # Mild acute sigmoid diverticulitis based on CT also could be mild ischemic colitis -continue pip-tazo and monitor abdominal exam - remains benign. Probably can be on augmentin tomorrow if tolerating TF -restarting TF's. 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 Based on my interaction he has significant Parkinson's dementia. # Dependent on g-tube for feeding and meds -resumed TF -meds per tube -continue carbidopa-levodopa # Hx CVA # Aortic stenosis s/p TAVR # HTN - hold ASA, continue statin - continue lisinopril # BPH - continue doxazosin, monitor for urinary retention DVT ppx - SCDs only since bleeding PT/OT eval - rec rehab stay, currently below his functional baseline I updated his at the bedside on the plan of care 10/24 Admission and Anticipated Discharge Date Admission Date: October 23, 2024 Subjective Has hearing aids charged Not oriented to why he's here No abdominal pain, no nausea No stools today TF restarted Physical Exam 2 Physical Exam: Last 24h vitals reviewed GEN: awake in bed HEENT: pupils equal, sclerae anicteric, moist MM RESP: normal WOB, CTAB CV: reg no mrg ABD: soft/nt/nd +BT : no farmer SKIN: warm and dry, no generalized rashes NEURO: AOx person. Paucity of verbal replies and cannot narrate history. Extremely VENETIE better with hearing aids. Masked facies and bradykinesia. No tremor. Results & Data Results & Data Vital Signs (Past 12 Hours) Vital Signs Temp Pulse BP Pulse Ox O2 Del Method 10/25/24 16:04 36.4 C L 61 99/51 L 94 Room Air 10/25/24 07:18 37 C 70 148/75 H 95 Room Air Laboratory Results 10/24/24 07:52 10/25/24 06:10 PG Care Time/CCT Total # of Minutes Spent Total Time Spent with Patient: Total time spent is greater than 50% in coordination of care (as documented) at patient's floor/unit and/or counseling patient: Coding Level of Care Code 63706 SUB INP/OBS CARE 2/35MIN Diagnoses Diverticulitis K57.92 Acute lower GI bleeding K92.2 Atypical parkinsonism G20 Parkinson's disease dementia G20.A1; F02.[address] Z93.1 BPH (benign prostatic hyperplasia) N40.0
[2024-10-26] MEDS ORDERED: Nursing to Pharmacy Communication SCH (00:15)
[2024-10-26 06:58] LABS: Hematocrit (blood only) 36.3 % (42.0-52.0); Hemoglobin 11.7 g/dl (14.0-18.0); Mean Corpuscular Hemoglobin 27.7 pg (25.0-34.0); Mean Corpuscular Volume 85.8 fL (80.0-100.0); Platelet Count 125 K/uL (130-400); RDW Standard Deviation 44.7 fL (36.4-46.3); Red Blood Count 4.23 M/uL (4.70-6.10); White Blood Count 6.61 K/ul (4.8-10.8)
[2024-10-26 07:23] LABS: Anion Gap 7.0 (3-11); Blood Urea Nitrogen 12.0 mg/dl (6-23); Calcium 8.6 mg/dl (8.6-10.3); Carbon Dioxide 24.0 mmol/L (21-32); Chloride 105.0 mmol/L (98-107); Creatinine Clr Calc Pharmacy 73.4 ml/min; Glucose 134.0 mg/dl (70-99(Fasting)); Potassium 4.1 mmol/L (3.5-5.1); Sodium 136.0 mmol/L (136-145)
--- NOTE | 2024-10-26 08:25 | Hospitalist Progress Note ---
"Date of Service October 26, 2024 Assessment & Plan (1) Diverticulitis: (2) Acute lower GI bleeding: (3) Atypical parkinsonism: (4) Parkinson's disease dementia: (5) Gastrostomy tube in place: Plan 84 y/o man with atypical parkinson's resulting in dysphagia requiring g-tube and on aspirin for history of stroke. His brought him in with [facility]. Based on CTA done in ED, source is probably sigmoid diverticulitis. #Acute lower GI bleeding | Mild acute sigmoid diverticulitis - likely caused by diverticulitis or Acute ischemic colitis. Mild acute sigmoid diverticulitis based on CT also could be mild ischemic colitis - Initially treated with IV Zosyn, now transitioned to Augmentin BID - recommend 10 day total antibiotic course - Restarted tube feeds on 10/25 - well-tolerating and abdominal exam remains benign. Na/K still normal and Cr at baseline - Hold aspirin with acute bleeding - Monitor VS, H/H and stool color/quality - mild thrombocytopenia related to consumption, blood in stool seems resolving/resolved, last BM 10/24 #Atypical parkinson's disease | G-tube feed/med dependent - with dysphagia and cognitive impairment. Based on my interaction he has significant Parkinson's dementia. 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 Plan to discontinue D5W IVF tomorrow 10/27 - Meds per tube - Continue carbidopa-levodopa #Hx CVA | Aortic stenosis s/p TAVR | HTN - Hold ASA, continue statin - Continue lisinopril #BPH - continue doxazosin, monitor for urinary retention DVT ppx: SCDs only since bleeding Dispo: PT/OT recommending rehab. is agreeable. Referrals to be made by CM Discontinued Zosyn and started Augmentin Updated at bedside Coordinated care with dietitian and case management Admission and Anticipated Discharge Date Admission Date: October 23, 2024 Supervising Physician Co-Signing Physician Notes PA Supervision Note: I did not personally see or examine the patient today, but I verified all queen points of DOE Russ's assessment and plan with the following exceptions/additions: None Subjective Patient seen and evaluated at bedside with his present. He is confused and only oriented to self at this time. He is well tolerating the resumption of his tube feeds. His last bowel movement was on 10/24. I discussed with his therapy's recommendation of acute rehab. She would like him to go to rehab if therapy recommends it. Informed her that I would ask case management to come meet with them for facility preferences. No additional complaints or concerns at this time. Physical Exam Physical Exam: General: No acute distress, nondiaphoretic, well-developed, well-nourished. Hard of hearing. Skin: Soft, nontender. No rashes or peripheral edema. Cardiac: Regular rate and rhythm without murmurs gallops or rubs. Pulm: Clear to auscultation bilaterally without wheezes, rales or rhonchi. Normal respiratory effort. 96% on room air. Abdominal: Soft, nontender, nondistended. G-tube noted in upper abdomen site clean dry intact. Bowel sounds present. Neuro: A&O x1 (self only). No focal neurological deficits. Results & Data Results & Data Vital Signs (Past 12 Hours) Vital Signs Temp Pulse Resp BP Pulse Ox O2 Del Method 10/26/24 07:36 98.2 F 86 16 114/71 96 Room Air 10/25/24 21:08 97.2 F L 65 18 133/77 98 Room Air Laboratory Results Reviewed CBC Reviewed BMP PG Care Time/CCT Total # of Minutes Spent Total Time Spent with Patient: Total time spent is greater than 50% in coordination of care (as documented) at patient's floor/unit and/or counseling patient: Coding Level of Care Code 11224 SUB INP/OBS CARE 3/50MIN Diagnoses Diverticulitis K57.92 Acute lower GI bleeding K92.2 Atypical parkinsonism G20 Parkinson's disease dementia G20.A1; F02.[address] Z93.1"
[2024-10-26] MEDS: AMOXICILLIN/CLAVULANATE 875 MG TAB PO SCH (16:08)
[2024-10-27 06:55] LABS: Hematocrit (blood only) 34.3 % (42.0-52.0); Hemoglobin 11.4 g/dl (14.0-18.0); Mean Corpuscular Hemoglobin 28.7 pg (25.0-34.0); Mean Corpuscular Volume 86.4 fL (80.0-100.0); Platelet Count 124 K/uL (130-400); RDW Standard Deviation 45.2 fL (36.4-46.3); Red Blood Count 3.97 M/uL (4.70-6.10); White Blood Count 5.95 K/ul (4.8-10.8)
[2024-10-27 07:16] LABS: Anion Gap 5.0 (3-11); Blood Urea Nitrogen 14.0 mg/dl (6-23); Calcium 8.3 mg/dl (8.6-10.3); Carbon Dioxide 27.0 mmol/L (21-32); Chloride 105.0 mmol/L (98-107); Creatinine Clr Calc Pharmacy 82.9 ml/min; Glucose 132.0 mg/dl (70-99(Fasting)); Potassium 3.8 mmol/L (3.5-5.1); Sodium 137.0 mmol/L (136-145)
--- NOTE | 2024-10-27 14:31 | Hospitalist Progress Note ---
"Date of Service October 27, 2024 Assessment & Plan (1) Diverticulitis: (2) Acute lower GI bleeding: (3) Atypical parkinsonism: (4) Parkinson's disease dementia: (5) Gastrostomy tube in place: Plan 84 y/o man with atypical parkinson's resulting in dysphagia requiring g-tube and on aspirin for history of stroke. His brought him in with [facility]. Based on CTA done in ED, source is probably sigmoid diverticulitis. #Acute lower GI bleeding | Mild acute sigmoid diverticulitis - likely caused by diverticulitis or Acute ischemic colitis. Mild acute sigmoid diverticulitis based on CT also could be mild ischemic colitis - Initially treated with IV Zosyn, now transitioned to Augmentin BID - recommend 10 day total antibiotic course - Restarted tube feeds on 10/25 - well-tolerating and abdominal exam remains benign. Na/K still normal and Cr at baseline - Hold aspirin with acute bleeding - can likely resume tomorrow 10/28 - Monitor VS, H/H and stool color/quality - mild thrombocytopenia related to consumption but could also be medication side effect from previous Zosyn and ongoing Augmentin, blood in stool seems resolved - further BMs have been brown without any blood noted - Follow CBC in the morning and if platelets not improving, consider discontinuing Augmentin and switching to a different antibiotic regimen #Atypical parkinson's disease | G-tube feed/med dependent - with dysphagia and cognitive impairment. Based on my interaction he has significant Parkinson's dementia. - Resumed TF 10/25 - D5W IVF now discontinued - Meds per tube - Continue carbidopa-levodopa #Hx CVA | Aortic stenosis s/p TAVR | HTN - Hold ASA, continue statin - Continue lisinopril #BPH - continue doxazosin, monitor for urinary retention DVT ppx: SCDs only since bleeding Dispo: Awaiting rehab placement Attempted to call patient's with daily update however line only beeped, no option to leave voicemail 10/27 Admission and Anticipated Discharge Date Admission Date: October 23, 2024 Supervising Physician Co-Signing Physician Notes DOE Supervision Note: I did not personally see or examine the patient today, but I verified all queen points of DOE Russ's assessment and plan with the following exceptions/additions: None Subjective Patient seen and evaluated bedside. No meaningful ROS able to be obtained due to patient's baseline cognitive status. He reports feeling well and denies any complaints or concerns at this time. Continuing to wait for rehab placement. Physical Exam Physical Exam: General: No acute distress, nondiaphoretic, well-developed, well-nourished. Hard of hearing. Skin: Warm, dry. No rashes or peripheral edema. Cardiac: Regular rate and rhythm without murmurs gallops or rubs. Pulm: Clear to auscultation bilaterally without wheezes, rales or rhonchi. Normal respiratory effort. 98% on room air. Abdominal: Soft, nontender, nondistended. G-tube noted in upper abdomen site clean dry intact. Bowel sounds present. Neuro: A&O x1 (self only). No focal neurological deficits. Results & Data Results & Data Vital Signs (Past 12 Hours) Vital Signs Temp Pulse Pulse Resp BP Pulse Ox O2 Del Method 10/27/24 12:08 98.1 F 73 17 103/66 98 Room Air 10/27/24 07:45 97.9 F 72 18 144/76 H 97 Room Air 10/27/24 07:25 Room Air Laboratory Results Reviewed CBC Reviewed BMP PG Care Time/CCT Total # of Minutes Spent Total Time Spent with Patient: Total time spent is greater than 50% in coordination of care (as documented) at patient's floor/unit and/or counseling patient: Coding Level of Care Code 93936 SUB INP/OBS CARE 2/35MIN Diagnoses Diverticulitis K57.92 Acute lower GI bleeding K92.2 Atypical parkinsonism G20 Parkinson's disease dementia G20.A1; F02.[address] Z93.1"
[2024-10-28 06:09] LABS: Hematocrit (blood only) 33.6 % (42.0-52.0); Hemoglobin 11.2 g/dl (14.0-18.0); Mean Corpuscular Hemoglobin 28.7 pg (25.0-34.0); Mean Corpuscular Volume 86.2 fL (80.0-100.0); Platelet Count 118 K/uL (130-400); RDW Standard Deviation 44.4 fL (36.4-46.3); Red Blood Count 3.90 M/uL (4.70-6.10); White Blood Count 5.13 K/ul (4.8-10.8)
[2024-10-28 06:29] LABS: Anion Gap 4.0 (3-11); Blood Urea Nitrogen 20.0 mg/dl (6-23); Calcium 8.2 mg/dl (8.6-10.3); Carbon Dioxide 26.0 mmol/L (21-32); Chloride 106.0 mmol/L (98-107); Creatinine Clr Calc Pharmacy 85.3 ml/min; Glucose 134.0 mg/dl (70-99(Fasting)); Potassium 3.8 mmol/L (3.5-5.1); Sodium 136.0 mmol/L (136-145)
--- NOTE | 2024-10-28 12:52 | Hospitalist Progress Note ---
"Date of Service October 28, 2024 Assessment & Plan (1) Diverticulitis: (2) Acute lower GI bleeding: (3) Atypical parkinsonism: (4) Parkinson's disease dementia: (5) Gastrostomy tube in place: Plan 84 y/o man with atypical parkinson's resulting in dysphagia requiring g-tube and on aspirin for history of stroke. His brought him in with [facility]. Based on CTA done in ED, source is probably sigmoid diverticulitis. #Acute lower GI bleeding | Mild acute sigmoid diverticulitis - likely caused by diverticulitis or Acute ischemic colitis. Mild acute sigmoid diverticulitis based on CT also could be mild ischemic colitis - Restarted tube feeds on 10/25 - well-tolerating and abdominal exam remains benign. Na/K still normal and Cr at baseline - Monitor VS, H/H and stool color/quality - blood in stool seems resolved - further BMs have been brown without any blood noted - Mild thrombocytopenia more likely due to medication side effect from previous Zosyn and ongoing Augmentin. Will discontinue Augmentin and start cefdinir + Flagyl. 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 Based on my interaction he has significant Parkinson's dementia. - Resumed TF 10/25 - Meds per tube - Continue carbidopa-levodopa #Hx CVA | Aortic stenosis s/p TAVR | HTN - Continue ASA, statin, lisinopril #BPH - continue doxazosin, monitor for urinary retention DVT ppx: SCDs only with recent GI bleeding Dispo: Awaiting rehab placement Updated via phone call 10/28 Discontinued Augmentin Started cefdinir and Flagyl Resumed aspirin Admission and Anticipated Discharge Date Admission Date: October 23, 2024 Supervising Physician Co-Signing Physician Notes DOE Supervision Note: I did not personally see or examine the patient today, but I verified all queen points of DOE Russ's assessment and plan with the following exceptions/additions: None Subjective Patient seen and evaluated in bedside chair. He reports feeling well overall. He is well tolerating his tube feeds. We discussed the adjustments made to his antibiotic regimen given his worsening thrombocytopenia. Continuing to wait for rehab placement. No acute complaints or concerns at this time. Physical Exam Physical Exam: General: No acute distress, nondiaphoretic, well-developed, well-nourished. Hard of hearing. Skin: Warm, dry. No rashes or peripheral edema. Cardiac: Well-perfused. Rate in 60s. Pulm: Normal respiratory effort. 96% on room air. Abdominal: Soft, nontender, nondistended. G-tube noted in upper abdomen site clean dry intact. Bowel sounds present. Neuro: A&O x2 (person and place). No focal neurological deficits. Results & Data Results & Data Vital Signs (Past 12 Hours) Vital Signs Temp Pulse Resp BP Pulse Ox O2 Del Method 10/28/24 09:00 Room Air 10/28/24 07:03 98.2 F 68 18 124/59 L 96 Room Air Laboratory Results Reviewed CBC Reviewed BMP PG Care Time/CCT Total # of Minutes Spent Total Time Spent with Patient: Total time spent is greater than 50% in coordination of care (as documented) at patient's floor/unit and/or counseling patient: Coding Level of Care Code 05342 SUB INP/OBS CARE 3/50MIN Diagnoses Diverticulitis K57.92 Acute lower GI bleeding K92.2 Atypical parkinsonism G20 Parkinson's disease dementia G20.A1; F02.[address] Z93.1"
[2024-10-28] MEDS: ASPIRIN 81 MG ECTAB PO SCH (14:33)
[2024-10-28] MEDS ORDERED: [UNRECOGNIZED DRUG - SUPPLY] TOP SCH (21:00)
[2024-10-28] MEDS: CEFDINIR 300 MG CAP PO SCH (21:12)
[2024-10-29 06:13] LABS: Hematocrit (blood only) 33.3 % (42.0-52.0); Hemoglobin 11.1 g/dl (14.0-18.0); Mean Corpuscular Hemoglobin 28.6 pg (25.0-34.0); Mean Corpuscular Volume 85.8 fL (80.0-100.0); Platelet Count 129 K/uL (130-400); RDW Standard Deviation 43.8 fL (36.4-46.3); Red Blood Count 3.88 M/uL (4.70-6.10); White Blood Count 4.98 K/ul (4.8-10.8)
[2024-10-29] MEDS: ARTIFICIAL TEARS OP SCH (10:28)
[2024-10-29] MEDS: BANATROL TF 60 ML LIQUID PKT PEG SCH (13:28)
--- NOTE | 2024-10-29 13:37 | Hospitalist Progress Note ---
"Date of Service October 29, 2024 Assessment & Plan (1) Diverticulitis: (2) Acute lower GI bleeding: (3) Atypical parkinsonism: (4) Parkinson's disease dementia: (5) Gastrostomy tube in place: Plan 84 y/o man with atypical parkinson's resulting in dysphagia requiring g-tube and on aspirin for history of stroke. His brought him in with [facility]. Based on CTA done in ED, source is probably sigmoid diverticulitis. #Acute lower GI bleeding | Mild acute sigmoid diverticulitis - likely caused by diverticulitis or Acute ischemic colitis. Mild acute sigmoid diverticulitis based on CT also could be mild ischemic colitis - Restarted tube feeds on 10/25 - well-tolerating and abdominal exam remains benign. Na/K still normal and Cr at baseline - Monitor VS, H/H and stool color/quality - blood in stool seems resolved - further BMs have been brown without any blood noted - Mild thrombocytopenia more likely due to medication side effect from previous Zosyn and ongoing Augmentin. Will discontinue Augmentin and start cefdinir + Flagyl. 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 Based on my interaction he has significant Parkinson's dementia. - Resumed TF 10/25 - Meds per tube - Continue carbidopa-levodopa - Loose stools 10/29 - stool sample collected to check for C. difficile given antibiotic use as above and is negative. Started Banatrol 60 mL twice daily for diarrhea management from TF/antibiotics #Hx CVA | Aortic stenosis s/p TAVR | HTN - Continue ASA, statin, lisinopril #BPH - continue doxazosin, monitor for urinary retention DVT ppx: SCDs only with recent GI bleeding Dispo: Awaiting rehab placement Updated via phone call 10/[address] RD Ordered C. difficile study Admission and Anticipated Discharge Date Admission Date: October 23, 2024 Supervising Physician Co-Signing Physician Notes DOE Ferris Note: I did not personally see or examine the patient today, but I verified all queen points of DOE Russ's assessment and plan with the following exceptions/additions: None Subjective Patient seen and evaluated at bedside. He is pleasantly confused (baseline). He has been having loose stools today, stool sample just obtained to test for C. difficile given his antibiotic use. He denies any abdominal pain or nausea. Denies fever, chills, body aches. He has no acute complaints or concerns at this time. Continuing to wait for rehab placement. Physical Exam Physical Exam: General: No acute distress, nondiaphoretic, well-developed, well-nourished. Hard of hearing. Skin: Warm, dry. No rashes or peripheral edema. Cardiac: Regular rate and rhythm without murmurs gallops or rubs. Pulm: Clear to auscultation bilaterally without wheezes, rales or rhonchi. Normal respiratory effort. 96% on room air. Abdominal: Soft, nontender, nondistended. G-tube noted in upper abdomen site clean dry intact. Bowel sounds present. Neuro: A&O x2 (person and place - baseline). No focal neurological deficits. Results & Data Results & Data Vital Signs (Past 12 Hours) Vital Signs Temp Pulse Resp BP Pulse Ox O2 Del Method 10/29/24 07:10 98.1 F 63 16 129/67 96 Room Air Laboratory Results Reviewed CBC Checking C. difficile study PG Care Time/CCT Total # of Minutes Spent Total Time Spent with Patient: Total time spent is greater than 50% in coordination of care (as documented) at patient's floor/unit and/or counseling patient: Coding Level of Care Code 79635 SUB INP/OBS CARE 3/50MIN Diagnoses Diverticulitis K57.92 Acute lower GI bleeding K92.2 Atypical parkinsonism G20 Parkinson's disease dementia G20.A1; F02.[address] Z93.1"
[2024-10-29 14:39] LABS: Cdiff Toxin B Gene (2yr or >) Negative Cdiff Gene (Neg)
[2024-10-30 03:45] LABS: Appearance Urine Clear (Clear); Bacteria Urine Automated None Seen (None Seen); Cast Urine Automated 0-2 /lpf (0-2); Epithelial Cell Urine Auto 0-2 /hpf (0-2); Glucose Urine UA Negative (Negative); RBC Urine Automated 0-2 /hpf (0-2); WBC Urine Automated 0-5 /hpf (0-5)
[2024-10-30 06:52] LABS: Hematocrit (blood only) 34.1 % (42.0-52.0); Hemoglobin 11.3 g/dl (14.0-18.0); Mean Corpuscular Hemoglobin 28.5 pg (25.0-34.0); Mean Corpuscular Volume 86.1 fL (80.0-100.0); Platelet Count 150 K/uL (130-400); RDW Standard Deviation 43.5 fL (36.4-46.3); Red Blood Count 3.96 M/uL (4.70-6.10); White Blood Count 5.22 K/ul (4.8-10.8)
--- NOTE | 2024-10-30 08:06 | Hospitalist Progress Note ---
"Date of Service October 30, 2024 Assessment & Plan (1) Diverticulitis: (2) Acute lower GI bleeding: (3) Atypical parkinsonism: (4) Parkinson's disease dementia: (5) Gastrostomy tube in place: Plan 84 y/o man with atypical parkinson's resulting in dysphagia requiring g-tube and on aspirin for history of stroke. His brought him in with [facility]. Based on CTA done in ED, source is probably sigmoid diverticulitis. #Acute lower GI bleeding | Mild acute sigmoid diverticulitis - likely caused by diverticulitis or Acute ischemic colitis. Mild acute sigmoid diverticulitis based on CT also could be mild ischemic colitis - Restarted tube feeds on 10/25 - well-tolerating and abdominal exam remains benign. Na/K still normal and Cr at baseline - Monitor VS, H/H and stool color/quality - blood in stool seems resolved - further BMs have been brown without any blood noted - Mild thrombocytopenia more likely due to medication side effect from previous Zosyn and ongoing Augmentin. Will discontinue Augmentin and start cefdinir + Flagyl. 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 Based on my interaction he has significant Parkinson's dementia. - Resumed TF 10/25 - Meds per tube - Continue carbidopa-levodopa - Loose stools began 10/28 - started Banatrol 60 mL twice daily on 10/29 for diarrhea management from TF/antibiotics - continue. Still having loose stools, discussed with RD and will give Banatrol another day to kick in. If still having loose stools tomorrow 10/31, can add Imodium PRN #Hx CVA | Aortic stenosis s/p TAVR | HTN - Continue ASA, statin, lisinopril #BPH - continue doxazosin, monitor for urinary retention DVT ppx: SCDs only with recent GI bleeding Dispo: Awaiting rehab placement Discussed with dietitian Ordered butt paste Admission and Anticipated Discharge Date Admission Date: October 23, 2024 Supervising Physician Co-Signing Physician Notes DOE Supervision Note: I did not personally see or examine the patient today, but I verified all queen points of PA Gross's assessment and plan with the following exceptions/additions: None Physical Exam Physical Exam: General: No acute distress, nondiaphoretic, well-developed, well-nourished. Hard of hearing. Skin: Warm, dry. No rashes or peripheral edema. Cardiac: Regular rate and rhythm without murmurs gallops or rubs. Pulm: Clear to auscultation bilaterally without wheezes, rales or rhonchi. Normal respiratory effort. 96% on room air. Abdominal: Soft, nontender, nondistended. G-tube noted in upper abdomen site clean dry intact. Bowel sounds present. Neuro: A&O x2 (person and place - baseline). No focal neurological deficits. Results & Data Results & Data Vital Signs (Past 12 Hours) Vital Signs Temp Pulse Resp BP Pulse Ox O2 Del Method 10/30/24 07:43 97.3 F L 72 18 116/68 94 Room Air 10/29/24 22:19 97.9 F 67 18 111/66 97 Room Air Laboratory Results Reviewed CBC Reviewed UA PG Care Time/CCT Total # of Minutes Spent Total Time Spent with Patient: Total time spent is greater than 50% in coordination of care (as documented) at patient's floor/unit and/or counseling patient: Coding Level of Care Code 07279 SUB INP/OBS CARE 3/50MIN Diagnoses Diverticulitis K57.92 Acute lower GI bleeding K92.2 Atypical parkinsonism G20 Parkinson's disease dementia G20.A1; F02.[address] Z93.1"
[2024-10-30] MEDS: BUTT PASTE (ZINC OXIDE 16%) 171 APPLN/57 GM JAR EXT PRN (17:25)
[2024-10-31 06:36] LABS: Hematocrit (blood only) 36.1 % (42.0-52.0); Hemoglobin 11.9 g/dl (14.0-18.0); Mean Corpuscular Hemoglobin 28.4 pg (25.0-34.0); Mean Corpuscular Volume 86.2 fL (80.0-100.0); Platelet Count 156 K/uL (130-400); RDW Standard Deviation 42.7 fL (36.4-46.3); Red Blood Count 4.19 M/uL (4.70-6.10); White Blood Count 4.43 K/ul (4.8-10.8)
[2024-10-31 06:56] LABS: Alanine Aminotransferase 13.0 U/L (7-52); Albumin Globulin Ratio 1.1 (0.9-2); Albumin Level 3.0 gm/dl (3.4-5.0); Alkaline Phosphatase 69.0 U/L (34-104); Anion Gap 4.0 (3-11); Bilirubin,Total 0.4 mg/dl (0.2-1.0); Blood Urea Nitrogen 19.0 mg/dl (6-23); Calcium 8.4 mg/dl (8.6-10.3); Carbon Dioxide 29.0 mmol/L (21-32); Chloride 104.0 mmol/L (98-107); Creatinine Clr Calc Pharmacy 81.7 ml/min; Globulin 2.7 gm/dl (2.5-4.0); Glucose 127.0 mg/dl (70-99(Fasting)); Potassium 4.1 mmol/L (3.5-5.1); Sodium 137.0 mmol/L (136-145); Total Protein 5.7 gm/dl (6.0-8.3)
--- NOTE | 2024-10-31 12:39 | Hospitalist Progress Note ---
"Date of Service October 31, 2024 Assessment & Plan (1) Diverticulitis: (2) Acute lower GI bleeding: (3) Atypical parkinsonism: (4) Parkinson's disease dementia: (5) Gastrostomy tube in place: Plan 84 y/o man with atypical parkinson's resulting in dysphagia requiring g-tube and on aspirin for history of stroke. His brought him in with [facility]. Based on CTA done in ED, source is probably sigmoid diverticulitis. #Acute lower GI bleeding | Mild acute sigmoid diverticulitis - likely caused by diverticulitis or Acute ischemic colitis. Mild acute sigmoid diverticulitis based on CT also could be mild ischemic colitis - Restarted tube feeds on 10/25 - well-tolerating and abdominal exam remains benign. Na/K still normal and Cr at baseline - Monitor VS, H/H and stool color/quality - blood in stool seems resolved - further BMs have been brown without any blood noted, RN reports starting to form - Mild thrombocytopenia more likely due to medication side effect from previous Zosyn and ongoing Augmentin. Will discontinue Augmentin and start cefdinir + Flagyl. 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 Based on my interaction he has significant Parkinson's dementia. - Resumed TF 10/25 - Meds per tube - Continue carbidopa-levodopa - Loose stools began 10/28 - started Banatrol 60 mL twice daily on 10/29 for diarrhea management from TF/antibiotics - continue. Stools becoming more solid #Hx CVA | Aortic stenosis s/p TAVR | HTN - Continue ASA, statin, lisinopril #BPH - continue doxazosin, monitor for urinary retention DVT ppx: SCDs only with recent GI bleeding Dispo: Awaiting rehab placement Admission and Anticipated Discharge Date Admission Date: October 23, 2024 Supervising Physician Co-Signing Physician Notes Attending Attestation - Chart reviewed, care plan d/w DOE Chavez. I agree w/ the queen components of her documentation. Darien Childress MD Subjective Patient seen sitting up in the chair. Denies pain. walked today and is very proud of that stool frequency has decreased, RN feels like it is starting to form Review of Systems Review of Systems: All systems reviewed & are unremarkable except as noted in Subjective Physical Exam Physical Exam: General: NAD, VS as above Resp: normal respiratory effort, lungs clear to auscultation CV: RRR, no murmur, Abd: normal bowel sounds, non tender, no hepatosplenomegaly Extremities: Moves all extremities, no edema Neuro: A&O x1, Results & Data Results & Data Vital Signs (Past 12 Hours) Vital Signs Temp Pulse Resp BP Pulse Ox O2 Del Method 10/31/24 07:21 97.7 F 64 18 124/70 96 Room Air Laboratory Results cbc and chemistry reviewed PG Care Time/CCT Total # of Minutes Spent Total Time Spent with Patient: Total time spent is greater than 50% in coordination of care (as documented) at patient's floor/unit and/or counseling patient: Coding Level of Care Code 61045 SUB INP/OBS CARE 03/11MIN Diagnoses Diverticulitis K57.92 Acute lower GI bleeding K92.2 Atypical parkinsonism G20 Parkinson's disease dementia G20.A1; F02.[address] Z93.1"
[2024-11-01 07:10] VITALS: BP 138/76; PULSE 65; RESP 16; TEMP 97.3; O2SAT 99
--- NOTE | 2024-11-01 11:10 | Discharge Summary ---
"Discharge Summary Date of Service November 01, 2024 Principal Dx & Hospital Course #1 = Principal Diagnosis (1) Diverticulitis: (2) Acute lower GI bleeding: (3) Atypical parkinsonism: (4) Parkinson's disease dementia: (5) Gastrostomy tube in place: Plan #Acute lower GI bleeding | Mild acute sigmoid diverticulitis - likely caused by diverticulitis or Acute ischemic colitis 84 y/o man with atypical parkinson's resulting in dysphagia requiring g-tube and on aspirin for history of stroke. His brought him in with [facility]. Based on CTA done in ED, source is probably sigmoid diverticulitis or mild ischemic colitis. Allowed for bowel rest and then resumed on tube feeds 10/25. No further blood in stools. Initally on zosyn transitioned to augmentin but then developed thromboyctopenia. Transitioned to cefedinir and flagyl with last dose 11/02. Thrombytopia resolved. 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 continue Meds per tube. Continue carbidopa-levodopa. Loose stools began 10/28 - started Banatrol 60 mL twice daily on 10/29 for ted rrhea management from TF/antibiotics - continue. #Hx CVA | Aortic stenosis s/p TAVR | HTN - Continue ASA, statin, lisinopril #BPH - continue doxazosin, monitor for urinary retention dispo: discharge to centre care today case discussed with RD Admission HPI Per Admitting Provider 84 y/o man with atypical parkinson's resulting in dysphagia requiring g-tube and on aspirin for history of stroke. His brought him in with [facility]. She provides the majority of history because of his cognitive and communication challenges. Yesterday he had a dark stool which she attrib to eating chocolate. This very early started to pass luis fernando blood with clots. The blood was all over the place so she isn't sure of quantitiy, but doesn't sound like severe amount. Luis Fernando blood on rectal exam. Rectal was nontender and no abdominal pain or tenderness. Denies any fever/chills, abdominal or rectal pain, back pain, nausea/vomiting or diarrhea. No shortness of breath or CP. She says if he eats/drinks he aspirates. CTA in ED with no active bleeding, mild sigmoid diverticulitis Pip-tazo started in ED Discharge Exam General: NAD, VS as above Resp: normal respiratory effort, lungs clear to auscultation CV: RRR, no murmur, Abd: normal bowel sounds, non tender, no hepatosplenomegaly Extremities: Moves all extremities, no edema Discharge Plan Discharge Items Patient Disposition: Transfer [facility] Reason For Visit: HEMATOCHEZIA, DIVERTICULITIS Discharge Diagnosis: diverticulitis Condition on Discharge: Good Activity: As commented below Activity Comment: work with therapy to get stronger Non-emergency contact: Primary Care Provider Call non-emergency contact if: you have any medication questions, your symptoms worsen, your pain is not controlled and your temperature is above 101.5 Follow-up/Referrals: Marcie Wallace CRNP [Primary Care Provider] - (follow up after discharge from rehab ) Diet: Nothing by Mouth Addtl Attending Provider Instructions: Mr. Ellis, You were hospitalized after having GI bleeding at home. This was found to be from diverticulitis. You were treated with IV antibiotics and then transitioned to oral, you will have one more day of oral antibiotics. You were having loose stools so Banatrol was added twice a day. For tube feeds - you are receving Peptamen 1.5 55 ml/hr continuously. No other changes to your home medications Please follow up with your PCP after discharge from rehab Thanks for allowing us to participate in your care! Pending Studies at Discharge: No Stand-Alone Forms: My [facility] Skilled Items Patient informed of condition?: Yes DNR: No Discharge Level of Care: Skilled Communicable Disease: No Discharge Prognosis: Stable Lines: None Urinary Catheter: No Medications and DC Order Prescriptions: New metronidazole 250 mg Tablet 500 mg PO QID 1 Days Qty: 8 0RF cefdinir 300 mg Capsule 300 mg PO BID 1 Days Qty: 2 0RF Boudreauxs Butt Paste 16 % Ointment 1 applic EXT QID PRN (Reason: skin irritation) Qty: 30 0RF Peptamen 1.5 0.068 gram- 1.5 kcal/mL Liquid 1 ea PEG .See Protocol Qty: 6000 0RF Rx Instructions: 55 ml/hr continuous Banatrol TF 5 gram-45 kcal/60 mL Liquid In Packet 60 ml PEG BID Qty: 3600 0RF thiamine HCl (vitamin B1) 100 mg Tablet 100 mg PEG DAILY Qty: 30 0RF Continued (DME) hospital bed See Rx Instructions .Route .MEDSUPPLY Qty: 1 0RF Rx Instructions: As directed miscellaneous medical supply Misc 1 ea miscellaneous DAILY Qty: 1 0RF Rx Instructions: HOSPITAL BED; ELECTRONIC HEIGHT ADJUSTMENT FOR HEAD AND FEET DX: Z93.1, R53.1, G20 miscellaneous medical supply Misc 1 ea miscellaneous DAILY Qty: 1 0RF Rx Instructions: PRESSURE MATTRESS DX: Z93.1, R53.1, G20 (DME) Flutter Valve Device See Rx Instructions .Route Qty: 1 0RF Rx Instructions: PLEASE USE DIRECTED atorvastatin 40 mg tablet 40 mg PEG HS Qty: 90 3RF carbidopa-levodopa 25-100 mg tablet See Rx Instructions .ROUTE .COMPLEX Qty: 540 3RF Dose Instruction: TAKE 1 TAB PER FEEDING TUBE 3 TIMES A DAY Rx Instructions: TAKE 2 TABS PER FEEDING TUBE 3 TIMES A DAY. (DME) alternating pressure pad See Rx Instructions .Route .MEDSUPPLY Qty: 1 0RF Rx Instructions: As directed aspirin 81 mg tablet,delayed release (DR/EC) 81 mg feeding tube Q OTHER DAY Rx Instructions: 81 mg via feeding tube every other day; lubricants Gel 1 ea TOPICAL HS cholecalciferol (vitamin D3) 25 mcg (1,000 unit) Capsule 2,000 unit PEG QAM Qty: 60 0RF Tube Feeding Water Flush 125 ml PEG Q4H Qty: 20 1RF polyvinyl alcohol [Dry Eyes] 1.4 % Drops 1 drp OPHTHALMIC (EYE) QAM doxazosin 1 mg tablet 1 mg feeding tube QAM folic acid 1 mg tablet 1 mg feeding tube QAM Discharge Orders: Discharge Order (Routine); Ordered 11/01/24 Ordered By: Leann Chavez Admission Data Admit Date/Time: 10/23/24 19:04 Attending Provider: Monserrat Suarez Admit Provider: Monserrat Suarez Primary Care Provider: Marcie Wallace Other Providers: Monserrat Suarez; Korin Patel [facility]; [place]; [facility] Stay Data Consultations 10/23/24 11:15 ED Decision to Admit Stat Diagnostic Imagining Performed Chest X-Ray 10/23/24 09:44 XR chest 1V portable CLINICAL HISTORY: GIB COMPARISON STUDY: 02/13/2024 FINDINGS: Stable aortic valve repair. Stable mild cardiomegaly without pulmonary vascular congestion. Inspiration is shallow. No consolidation or pleural effusion seen. No pneumothorax. IMPRESSION: No acute findings. ACT 112: Negative or not required by law. Electronically signed by: Anshu Zhang M.D. 10/23/2024 10:04 AM Abdomen/Pelvis CTA 10/23/24 10:00 CT ANGIOGRAPHY OF THE ABDOMEN AND PELVIS CLINICAL HISTORY: Lower GI bleed. COMPARISON STUDY: CT of the abdomen and pelvis February 13, 2024. TECHNIQUE: Helical axial images of the abdomen and pelvis were obtained during arterial phase following intravenous injection of 118 cc of Optiray 320 IV. Sagittal and coronal reformats were viewed as well as maximal intensity projections on an independent 3-D workstation. A dose lowering technique was utilized adhering to the principles of ALARA. FINDINGS: Moderate aortoiliac atherosclerotic plaque is present. The caliber of the abdominal aorta is normal. No aneurysm within the abdomen or pelvis is identified. There is mild plaque within the branch vessels without significant stenosis. Arterial phase images of the liver, spleen, adrenal glands and pancreas are unremarkable. There is a 2.4 cm right renal cyst. Bilateral renal parapelvic cysts are incidentally noted. There are gallstones within the gallbladder without evidence for acute cholecystitis. A gastrostomy tube is in place. There is colonic diverticulosis. Minimal inflammation adjacent to the proximal sigmoid colon diverticula is noted. There is no free air. There is no abscess. This is noted on image 237. No intraluminal contrast to suggest active GI bleed by CT is identified. There is a moderate amount of stool within the colon and the rectum. The appendix is normal. There are no fluid collections. There is no lymphadenopathy. IMPRESSION: 1. No intraluminal contrast to suggest active GI bleed by CT. 2. Colonic diverticulosis. Minimal inflammation adjacent to diverticula of the proximal sigmoid colon consistent with mild sigmoid diverticulitis. No free air or abscess. 3. No bowel obstruction. Moderate amount of stool within the colon and rectum. 4. Moderate aortoiliac atherosclerotic plaque. Normal caliber abdominal aorta. No significant stenoses. No aneurysms. 5. Gastrostomy tube in place. 6. Cholelithiasis. ACT 112: Negative or not required by law. Electronically signed by: Gene Paulino M.D. 10/23/2024 10:47 AM Pending Results Patient Have Any Pending Studies at Discharge: No Discharge Instructions Given to Patient (Per Discharging Provider) Mr. Ellis, Ricco were hospitalized after having GI bleeding at home. This was found to be from diverticulitis. You were treated with IV antibiotics and then transitioned to oral, you will have one more day of oral antibiotics. You were having loose stools so Banatrol was added twice a day. For tube feeds - you are receving Peptamen 1.5 55 ml/hr continuously. No other changes to your home medications Please follow up with your PCP after discharge from rehab Thanks for allowing us to participate in your care! Total Time Total Time Spent Total Time Spent (In Minutes): Time spent day of discharge [36] minutes including direct patient care, medication reconciliation, documentation, review of labs and images, and coordination of care. Coding Level of Care Code 37398 INP/OBS DISCH >30 MIN Diagnoses Diverticulitis K57.92 Acute lower GI bleeding K92.2 Atypical parkinsonism G20 Parkinson's disease dementia G20.A1; F02.[address] Z93.1"
--- NOTE | 2024-11-02 07:57 | Coding Query ---
CODING QUERY To promote full compliance with coding requirements relating to patient care, provider participation is requested in all cases of perianesthesia rn uncertainty. Please assist us with the question(s) below: Coding Question(s): Reports state #Acute lower GI bleeding | Mild acute sigmoid diverticulitis - likely caused by diverticulitis or Acute ischemic colitis. Please clarify below. Physician's Response(s): ( x ) GI bleeding due to sigmoid diverticulitis ( ) GI bleeding due to Acute ischemic colitis ( ) GI bleeding due to sigmoid diverticulitis AND acute ischemic colitis Thank you Trini Cota Principal Diagnosis: "that condition established after study, to be chiefly responsible for occasioning the admission of the patient to the hospital for care." Co-Existing Principal Diagnosis: "when two or more diagnoses equally meet the criteria for principal diagnosis as determined by the circumstances of admission, diagnostic work up, and/or therapy provided, and the Alphabetic Index, Tabular List, or another coding guideline does not provide sequencing direction, any one of the diagnoses may be sequenced first." "When the physician has documented what appears to be a current diagnosis in the body of the record, but has not included the diagnosis in the final diagnostic statement, the physician should be asked whether the diagnosis should be added." (Source Coding [facility] 2 QTR90. p3-4) [facility]
== END 2024-11-01 14:47 | DRG 378 ==
LOC: SUATTDRO → ED 09:29 → INTOOBSV 19:04 → SUATTDRO 19:04 → EDINP 19:04 → 3E 22:04